=== PATIENT | male | born 1990 | race Caucasian/White ===

== ENCOUNTER 2021-11-01 19:41 | Emergency (ER) | payer OTHER, SELFPAY ==
--- NOTE | ~2021-11-01 | XR_ITS ---
EXAMINATION: XR chest 1V portable 11/01/2021 20:18 INDICATION: Shortness of breath with chest tightness PROCEDURE: 2 view chest COMPARISON: 04/26/2017 FINDINGS: The lungs are clear. The cardiomediastinal silhouette is within normal limits. There are no pleural effusions. There is no pneumothorax suspected. IMPRESSION: 1: NO ACUTE CARDIOPULMONARY DISEASE. Reviewed, dictated and finalized at location A.
[2021-11-01 19:48] VITALS: BP 159/77; PULSE 82; RESP 22; TEMP 36.8; O2SAT 98
[2021-11-01 20:00] VITALS: BP 148/80; PULSE 85; RESP 22; O2SAT 99
--- NOTE | 2021-11-01 20:05 | ECG_ITS ---
Measurements Intervals [place] Rate: 69 P: 16 [place]: 136 QRS: 19 QRSD: 95 T: 11 QT: 364 QTc: 390 Interpretive Statements SINUS RHYTHM BASELINE ARTIFACT- I, II, III, AVR, AVL, V1, V4-V6 NORMAL ECG Electronically Signed On 11-01-2021 21:32:40 CDT by Abelardo Caruso D.O.
[2021-11-01 20:23] LABS: Basophils Absolute Auto 0.09 K/mm3 (0.00-0.10); Basophils Percent Auto 0.9 % (0.0-1.0); Eosinophils Absolute Auto 0.38 K/mm3 (0.02-0.50); Hemoglobin 15.3 g/dL (14.0-18.0); Immature Granulocyte Absolute 0.05 K/mm3 (0.00-0.00); Immature Granulocyte Percent A 0.5 % (0.0-0.0); Lymphocytes Absolute Auto 2.19 K/mm3 (1.10-4.50); Mean Corpuscular HGB Conc 33.3 g/dL (32.0-36.0); Mean Corpuscular Hemoglobin 29.7 pg (27.0-31.0); Mean Corpuscular Volume 89.3 fL (78.0-102.0); Mean Platelet Volume 9.9 fl (8.7-11.0); Monocytes Absolute Auto 0.79 K/mm3 (0.10-0.90); Monocytes Percent Auto 8.3 % (2.0-11.0); Neutrophils Percent Auto 63.3 % (50.0-70.0); Platelet Count Result 343 K/mm3 (150-420); Red Blood Count 5.15 M/mm3 (4.70-6.10); Red Cell Distribution Width 13.6 % (11.6-14.4); White Blood Count 9.5 K/mm3 (4.8-10.8)
[2021-11-01 20:30] VITALS: BP 137/69; PULSE 80; RESP 17; O2SAT 97
[2021-11-01 20:45] LABS: Alanine Aminotransferase 36 U/L (16-63); Albumin Level 3.6 g/dL (3.4-5.0); Alkaline Phosphatase 55 U/L (46-116); Anion Gap 10 mmol/L (8-16); Aspartate Amino Transferase 27 U/L (15-37); Bilirubin,Total 0.3 mg/dL (0.00-1.00); Blood Urea Nitrogen 11 mg/dL (7-18); Calcium 8.5 mg/dL (8.5-10.1); Carbon Dioxide 19 mmol/L (21-32); Chloride 110 mmol/L (98-108); Estimated Glomerular Filt Rate > 60; Glucose 151 mg/dL (70-99); Lipase 129 U/L (73-393); NT Pro B Type Natriuretic Pept 40 pg/mL (0-125); Osmolality Calculated 290 mOsm/kg (285-295); Potassium 3.8 mmol/L (3.5-5.1); Sodium 139 mmol/L (136-145); Total Protein 7.1 g/dL (6.4-8.2); Troponin I 8.9 ng/L (0.00-60.4)
[2021-11-01] MEDS: NITROGLYCERIN SL 0.4 MG TABLET SUBLINGUAL (20:52)
[2021-11-01] MEDS: ASPIRIN 81 MG CHEWABLE TABLET 324 MG PO (20:53)
[2021-11-01 21:00] VITALS: BP 142/83; PULSE 95; RESP 16; O2SAT 96
[2021-11-01 21:07] LABS: Appearance Urine Clear (Clear); Bilirubin Urine Negative (Negative); Color Urine Light Yellow (Yellow); Glucose Urine UA Negative (Negative); Ketones Urine Negative (Negative); Leukocyte Esterase Ur Negative LEU/UL (Negative); Nitrate Urine Negative (Negative); Protein Urine Negative (Negative); Specific Grav Ur 1.015 (1.010-1.020); Urobilinogen Urine 0.2 mg/dL (0.2-1.0)
[2021-11-01 21:15] LABS: Add Urine Microscopic? YES; Bacteria Urine Trace /hpf; Blood Urine Trace-Intact (Negative); RBC Urine 0-2 /hpf (0-2); WBC Urine 0-3 /hpf (0-3)
[2021-11-01 21:31] VITALS: BP 147/74; PULSE 74; RESP 16; O2SAT 98
--- NOTE | 2021-11-01 21:45 | ED.CHESTPAIN ---
HPI - Chest Pain General Chief Complaint: Chest Pain Stated Complaint: high blood pressure Time Seen by Provider: 11/01/21 19:45 Source: patient and RN notes reviewed Mode of arrival: ambulatory Limitations: no limitations History of Present Illness MD complaint: chest pain Pertinent past history: other (HTN) Onset (ago): hour(s) (6) Timing of current episode: constant and still present Onset: during rest Pain location: left chest Pain radiation: none Severity: mild Pain scale (0-10): 4 Quality: burning Relieving factors: nothing Exacerbating factors: nothing Treatment prior to arrival: none Risk Factors Coronary artery disease risk factors: hypertension Related Data Allergies Allergy/AdvReac Type Severity Reaction Status Date / Time cefotetan [Cefotan] Allergy Intermediate Anaphylaxis Verified 11/04/21 15:05 bee venom protein (honey bee) Allergy Anaphylaxis Verified 11/04/21 15:05 [bees] Review of Systems Review of Systems: All systems reviewed & are unremarkable except as noted in HPI and below Constitutional: Constitutional: Reports no additional constitutional complaints Eyes: Eyes: Reports no additional eye complaints ENT: Reports system reviewed and no additional complaints, except as documented Cardiovascular: Cardiovascular: Reports no additional cardiovascular complaints and Reports chest pain Respiratory: Respiratory: Reports no additional respiratory complaints Gastrointestinal: Gastrointestinal: Reports no additional gastrointestinal complaints Musculoskeletal: Musculoskeletal: Reports no additional musculoskeletal complaints Integumentary/Breasts: Skin/Breast: Reports system reviewed and no additional complaints, except as docu Neurologic: Reports system reviewed and no additional complaints, except as documented Psychiatric: Psychiatric: Reports no additional psychiatric complaints Endocrine: Endocrine: Reports no additional endocrine complaints Hematologic/Lymphatic: Hematologic/Lymphatic: Reports no additional hematologic/lymphatic complaints Allergic/Immunologic: Allergic/Immunologic: Reports no additional allergic/immunologic complaints [facility] Past Medical History Medical History Asthma Chest pain COVID-19 Epididymitis Orchitis Viral gastroenteritis Surgical History Surgical History H/O hand surgery Social History Social History Smoking status: Former smoker Alcohol intake: current Substance use: never Substance use type: does not use Additional occupation/education comments: labor Exam Const: General: healthy appearing and no acute distress Nutritional Appearance: well nourished Orientation/consciousness: patient oriented x3 Limitations: no limitations HENMT: Head: normal to inspection Ears: external ears normal, TM's normal bilaterally and EAC's normal General nose exam: Normal external nose present and Normal nares present Face and sinus: normal facial exam and sinuses nontender Mouth: Yes Normal oral and palatal mucosa present and Yes moist mucous membranes Teeth and gingiva: dentition normal Throat: posterior oropharynx normal Eyes: Conjunctivae: conjunctivae normal Pupils: Equal, round and reactive pupils present EOM: EOMs intact bilaterally Neck: Neck: normal visual inspection, no lymphadenopathy and no meningeal signs Chest: Chest palpation & inspection: normal inspection of the chest Resp: Effort & Inspection: normal respiratory effort Auscultation: clear to auscultation bilaterally Cardio: Rate: regular rate Rhythm: regular rhythm GI: GI Palp: Yes Soft to palpation and No Tenderness to palpation present (GI) Auscultation: normal bowel sounds : General: Yes bladder normal to palpation and Yes no CVA tenderness Back/Spine/Pelvis: Back: no CVA tenderness Skin: Ge
[2021-11-01] MEDS: KETOROLAC (*BKC) 60 MG/2 ML VIAL IM (21:53)
[2021-11-01 22:44] LABS: Influenza A QL RT-PCR Negative (Negative); Influenza B QL RT-PCR Negative (Negative); SARS-CoV-2 RNA PCR Negative (Negative)
[2021-11-01 22:57] VITALS: BP 123/85; PULSE 73; RESP 18; TEMP 36.6; O2SAT 98
== END 2021-11-01 22:58 | disposition home or self-care (01) ==
PROVIDERS: Emergency Provider Emergency Medicine
DX: R07.89 Other chest pain (principal); Z20.822 Contact with and (suspected) exposure to COVID-19; Z87.891 Personal history of nicotine dependence
CPT/HCPCS: 36415; 71045; 80053; 81001; 83690; 83880; 84484; 85025; 87502; 93005; 96372; 99284; A9270; C9803; J1885; U0003; U0005

== ENCOUNTER 2023-07-22 16:37 | Emergency (ER) | payer OTHER, SELFPAY ==
--- NOTE | 2023-07-22 16:42 | ED.GENADULT ---
HPI - General Adult General Chief complaint: Upper Respiratory Infection Stated complaint: SORE THROAT/EARS Time Seen by Provider: 07/22/23 16:41 Source: patient Mode of arrival: ambulatory Limitations: no limitations History of Present Illness HPI narrative: 33-year-old male patient presents to the [facility] with complaints of sore throat, ear pain and cold symptoms for the past 5 days. Patient's states he has had runny nose, cough, chills. Patient states he thinks he has been running a fever but has not measured it. patient states he did have some nausea vomiting and diarrhea couple of days ago that has since resolved. Patient states he has been taking [id number] Mucinex and Tylenol . Denies getting a flu shot this year. Related Data Home Medications Medication Instructions Recorded Confirmed testosterone cypionate 100 mg/mL 50 mg IM WEEKLY 07/22/23 07/22/23 intramuscular oil venlafaxine 75 mg capsule,extended 75 mg PO DAILY 07/22/23 07/22/23 release 24 hr Allergies Allergy/AdvReac Type Severity Reaction Status Date / Time cefotetan [Cefotan] Allergy Intermediate Anaphylaxis Verified 07/22/23 16:48 bee venom protein (honey bee) Allergy Anaphylaxis Verified 07/22/23 16:48 [bees] Review of Systems Review of Systems: CONSTITUTIONAL: Denies fever, Positive chills, and body aches, sweats. EYES: Denies visual changes, redness, or discharge. ENT: positive rhinorrhea, congestion, sore throat, bilateral otalgia. CARDIOVASCULAR: Denies chest pain, palpitations, or edema. RESPIRATORY: positive cough , denies dyspnea. GASTROINTESTINAL: Denies abdominal pain, positive nausea, vomiting, and diarrhea. GENITOURINARY: Denies dysuria or hematuria. SKIN: Denies rash or itching. MUSCULOSKELETAL: Denies back pain, joint pain, or myalgia. NEUROLOGIC: positive headache, denies numbness, or weakness. PSYCHIATRIC: Denies anxiety or depression. [facility] Past Medical History Medical History (Updated 07/22/23 @ 17:06 by ROSALEE Rodriguez) Anxiety Asthma Chest pain COVID-19 Epididymitis Orchitis Viral gastroenteritis Surgical History Surgical History (Updated 07/22/23 @ 16:55 by ROSALEE Rodriguez) H/O hand surgery History of hernia surgery Social History Social History Smoking status: Former smoker Alcohol intake: current Substance use: never Substance use type: does not use Living arrangements: with family Occupation/Education: occupation Additional occupation/education comments: labor Comments At the time of my signature I agree with nursing past medical history, surgical, social, and family history. There is no relevant family history pertinent to the presenting complaint. Exam Narrative: GENERAL: ill-appearing, well-nourished, and in no acute distress. HEAD: Normocephalic, atraumatic. EYES: PERRLA and EOMI. ENT: Nares with erythema edema noted bilateral, clear rhinorrhea , no epistaxis. Mucous membranes moist. posterior pharynx with 2+ tonsillar enlargement, no exudates or lesions. Bilateral TMs do appear injected and slightly erythemic NECK: Supple. bilateral cervical lymphadenopathy CHEST: Clear to auscultation. No respiratory distress. HEART: Regular rate and rhythm. No murmur heard. Normal peripheral pulses. ABDOMEN: Soft, nontender, nondistended, normal active bowel sounds. EXTREMITIES: Normal range of motion. No edema. SKIN: Warm, dry, no rash. NEURO: No focal deficits. Alert and oriented x3. Course Course Level of Care: Express Care Visit Reevaluation(s) Reevaluation #1: Re-evaluated patient notified and the all of his swabs today were negative. Discussed with patient he most likely has a viral URI. Discussed with patient I will discharge him home with some medication to help with the symptoms but if he still having worsening symptoms or fever in the next 3 days he should see his primary
[2023-07-22 16:43] VITALS: BP 136/80; PULSE 91; RESP 16; TEMP 37.1; O2SAT 100
== END 2023-07-22 17:10 | disposition home or self-care (01) ==
PROVIDERS: Emergency Provider Nurse Practitioner Family
DX: J06.9 Acute upper respiratory infection, unspecified (principal); J02.9 Acute pharyngitis, unspecified; Z20.822 Contact with and (suspected) exposure to COVID-19; Z87.891 Personal history of nicotine dependence; J45.909 Unspecified asthma, uncomplicated; F41.9 Anxiety disorder, unspecified; Z86.16 Personal history of COVID-19
CPT/HCPCS: 87081; 87426; 87804; 87880; 99213; G0463

== ENCOUNTER 2023-07-24 02:43 | Emergency (ER) | payer OTHER, SELFPAY ==
[2023-07-24 02:45] VITALS: BP 168/100; PULSE 100; RESP 20; TEMP 36.6; O2SAT 100
--- NOTE | 2023-07-24 03:02 | ED.GENADULT ---
HPI - General Adult General Chief complaint: Dental/Oral Stated complaint: dental pain History of Present Illness HPI narrative: Salvatore presented to the ED with pain in his upper right premolars. It started yesterday morning and became worse throughout the day. The pain then started to go into his sinus and right ear. It is painful to swallow but he can do so. Ther is no fever, dyspnea or drooling. Related Data Home Medications Medication Instructions Recorded Confirmed testosterone cypionate 100 mg/mL 50 mg IM WEEKLY 07/22/23 07/24/23 intramuscular oil venlafaxine 75 mg capsule,extended 75 mg PO DAILY 07/22/23 07/24/23 release 24 hr Allergies Allergy/AdvReac Type Severity Reaction Status Date / Time cefotetan [Cefotan] Allergy Intermediate Anaphylaxis Verified 07/22/23 16:48 bee venom protein (honey bee) Allergy Anaphylaxis Verified 07/22/23 16:48 [bees] Review of Systems Review of Systems: All systems reviewed & are unremarkable except as noted in HPI and below [facility] Past Medical History Medical History (Updated 07/24/23 @ 03:05 by Eugene Duran DO) Anxiety Asthma Chest pain COVID-19 Epididymitis Orchitis Viral gastroenteritis Surgical History Surgical History (Updated 07/22/23 @ 16:55 by ROSALEE Rodriguez) H/O hand surgery History of hernia surgery Social History Social History Smoking status: Former smoker Alcohol intake: current Substance use: never Substance use type: does not use Living arrangements: with family Occupation/Education: occupation Additional occupation/education comments: labor Exam Const: General: cooperative, healthy appearing, comfortable, no acute distress, well developed, alert, awake and Physically active Orientation/consciousness: oriented to person, oriented to place and oriented to time HENMT: Head: normal to inspection, normocephalic and atraumatic Ears: hearing grossly normal bilaterally and external ears normal Face/Nose/Sinus: Normal external nose present Other: right upper premolar was TTP and the peridental tissue was erythematous and very TTP. Right TM WNL Eyes: General: appearance normal, both eyes and all related structures Periorbital: periorbital findings normal Sclera: sclerae normal Pupils: Equal, round and reactive pupils present Neck: Neck: normal visual inspection Chest: Chest palpation & inspection: normal inspection of the chest Resp: Effort & Inspection: normal respiratory effort, able to speak in complete sentences and no respiratory distress Auscultation: clear to auscultation bilaterally Cardio: Jugular venous distension: no JVD Rate: regular rate Rhythm: regular rhythm GI: Inspection: normal to inspection GI Palp: Yes Soft to palpation Auscultation: normal bowel sounds Skin: General skin exam: normal color and no rashes or lesions noted Neuro: General: oriented to person, oriented to place and oriented to time Cranial nerves: Yes Equal, round and reactive pupils present Extrem: General: normal to inspection Course Course Emergency Course: Given clindamycin and toradol Vital Signs Vital signs: Vital Signs Temperature 97.9 F 07/24/23 02:45 Pulse Rate 100 07/24/23 02:45 Respiratory Rate 20 07/24/23 02:45 Blood Pressure 168/100 H 07/24/23 02:45 Pulse Oximetry 100 07/24/23 02:45 Oxygen Delivery Room Air 07/24/23 02:45 Temperature 97.9 F 07/24/23 02:45 Pulse Rate 100 07/24/23 02:45 Respiratory Rate 20 07/24/23 02:45 Blood Pressure 168/100 H 07/24/23 02:45 Pulse Oximetry 100 07/24/23 02:45 Oxygen Delivery Room Air 07/24/23 02:45 Medical Decision Making Vital Signs Vital Signs: Vital Signs Temperature 97.9 F 07/24/23 02:45 Pulse Rate 100 07/24/23 02:45 Respiratory Rate 20 07/24/23 02:45 Blood Pressure 168/100 H 07/24/23 02:45 Pulse Oximetry 100 04/0
[2023-07-24] MEDS: CLINDAMYCIN HCL 150 MG CAP 300 MG PO (03:05)
[2023-07-24] MEDS: KETOROLAC 30 MG/ML VIAL (*BKC) IM (03:06)
[2023-07-24] MEDS: HYDROcodone/acetaminophen (*CRX) 5-325 MG TABLET 1 TAB PO (03:26)
[2023-07-24 03:27] VITALS: BP 160/109; PULSE 108; RESP 20; O2SAT 99
[2023-07-24 03:42] VITALS: BP 158/102; PULSE 98; RESP 18; TEMP 36.9; O2SAT 98
== END 2023-07-24 03:42 | disposition home or self-care (01) ==
PROVIDERS: Emergency Provider Family Medicine
DX: K04.7 Periapical abscess without sinus (principal); J45.909 Unspecified asthma, uncomplicated; Z87.891 Personal history of nicotine dependence
CPT/HCPCS: 96372; 99283; A9270; J1885

== ENCOUNTER 2023-10-13 18:35 | Emergency (ER) | payer OTHER, SELFPAY ==
--- NOTE | ~2023-10-13 | XR_ITS ---
EXAMINATION: XR chest 1V portable DATE: 10/13/2023 18:59 INDICATION: Left chest pain. Shortness of breath. Cough. TECHNIQUE: A single frontal view of the chest was obtained. COMPARISON: Chest single view 11/01/2021 FINDINGS: There is no pneumonia, pleural effusion, or pneumothorax. The heart size is normal. IMPRESSION: 1. No acute cardiopulmonary disease. Reviewed, dictated and finalized at location E.
--- NOTE | 2023-10-13 18:37 | ECG_ITS ---
Test Date: 2023-10-13 18:43:14 Measurements Intervals [place] Rate: 96 P: 37 [place]: 132 QRS: 27 QRSD: 100 T: 22 QT: 329 QTc: 417 Interpretive Statements SINUS RHYTHM NORMAL ELECTROCARDIOGRAM No previous ECG available for comparison Electronically Signed On 10-14-2023 08:54:32 CDT by Vic Recinos M.D.
[2023-10-13 18:49] VITALS: BP 152/77; PULSE 95; RESP 13; TEMP 36.9; O2SAT 96
[2023-10-13 18:50] VITALS: O2SAT 98
[2023-10-13 19:30] LABS: Basophils Absolute Auto 0.07 K/mm3 (0.00-0.10); Basophils Percent Auto 0.9 % (0.0-1.0); Eosinophils Absolute Auto 0.47 K/mm3 (0.02-0.50); Eosinophils Percent Auto 5.7 % (1.0-6.0); Hemoglobin 15.1 g/dL (14.0-18.0); Immature Granulocyte Absolute 0.07 K/mm3 (0.00-0.00); Immature Granulocyte Percent A 0.9 % (0.0-0.0); Lymphocytes Absolute Auto 2.24 K/mm3 (1.10-4.50); Lymphocytes Percent Auto 27.4 % (18.0-42.0); Mean Corpuscular HGB Conc 33.6 g/dL (32-36); Mean Corpuscular Hemoglobin 29.2 pg (27.0-31.0); Mean Corpuscular Volume 86.9 fL (78.0-102.0); Mean Platelet Volume 9.4 fl (8.7-11.0); Monocytes Percent Auto 8.6 % (2.0-11.0); Neutrophils Absolute Auto 4.63 K/mm3 (1.70-7.20); Neutrophils Percent Auto 56.5 % (50.0-70.0); Platelet Count Result 295 K/mm3 (150-420); Red Blood Count 5.18 M/mm3 (4.70-6.10); Red Cell Distribution Width 13.4 % (11.6-14.4); White Blood Count 8.2 K/mm3 (4.8-10.8)
[2023-10-13 19:42] LABS: D Dimer 0.38 mg/L (0.19-0.50)
[2023-10-13] MEDS: KETOROLAC 30 MG/ML VIAL (*BKC) IV PUSH (19:44)
[2023-10-13 19:47] LABS: Alanine Aminotransferase 33 U/L (16-63); Albumin Level 3.7 g/dL (3.4-5.0); Alkaline Phosphatase 61 U/L (46-116); Anion Gap 12 mmol/L (4-12); Aspartate Amino Transferase 22 U/L (15-37); Bilirubin,Total 0.2 mg/dL (0.00-1.00); Blood Urea Nitrogen 13 mg/dL (7-18); Calcium 8.9 mg/dL (8.5-10.1); Carbon Dioxide 22 mmol/L (21-32); Chloride 104 mmol/L (98-108); Estimated CRCL calculation 195 ml/min; Estimated Glomerular Filt Rate > 60; Glucose 145 mg/dL (70-99); Osmolality Calculated 289 mOsm/kg (285-295); Potassium 3.9 mmol/L (3.5-5.1); Sodium 138 mmol/L (136-145); Total Protein 7.4 g/dL (6.4-8.2); Troponin I 8.1 ng/L (0.00-60.4)
--- NOTE | 2023-10-13 20:13 | ED.CHESTPAIN ---
HPI - Chest Pain General Chief Complaint: Chest Pain Stated Complaint: SOB; Chest Pain Source: patient Mode of arrival: ambulatory Limitations: no limitations History of Present Illness HPI narrative: this is a 33-year-old male who presents with chest discomfort that is reproducible with palpation and with movement deep inspiration with no fever chills no nausea vomiting no radiation of pain. complaint: chest discomfort Onset (ago): day(s) Timing of current episode: episodic Onset: during exertion Pain location: left chest Pain radiation: none Severity: moderate Pain scale (0-10): 6 Related Data Home Medications Medication Instructions Recorded Confirmed testosterone cypionate 100 mg/mL 50 mg IM [id number] 07/22/23 07/24/23 intramuscular oil venlafaxine 75 mg capsule,extended 75 mg PO DAILY 07/22/23 10/13/23 release 24 hr Allergies Allergy/AdvReac Type Severity Reaction Status Date / Time cefotetan [Cefotan] Allergy Intermediate Anaphylaxis Verified 10/13/23 18:48 bee venom protein (honey bee) Allergy Anaphylaxis Verified 10/13/23 18:48 [bees] Review of Systems Review of Systems: All systems reviewed & are unremarkable except as noted in HPI and below PMFSH Past Medical History Medical History Anxiety Asthma Chest pain COVID-19 Epididymitis Orchitis Viral gastroenteritis Surgical History Surgical History H/O hand surgery History of hernia surgery Social History Social History Smoking status: Former smoker Alcohol intake: current Substance use: never Substance use type: does not use Living arrangements: with family Occupation/Education: occupation Additional occupation/education comments: labor Exam Const: General: cooperative, healthy appearing, comfortable, no acute distress, well developed and alert Neck: Neck: normal visual inspection, full ROM, no lymphadenopathy and no meningeal signs Chest: Chest palpation & inspection: normal inspection of the chest Other: chest pain reproducible with palpation and with movement Resp: Effort & Inspection: normal respiratory effort and able to speak in complete sentences Cardio: Jugular venous distension: no JVD Palpation: normal PMI Rate: regular rate Rhythm: regular rhythm Heart sounds: S1 normal heart sound present and S2 normal heart sound present GI: Inspection: normal to inspection Neuro: General: oriented to person, oriented to place, oriented to time and patient oriented x3 Extrem: General: normal to inspection, full ROM and capillary refill normal Psych: Appearance: grossly normal Mental Status: mental status grossly normal Course Course Emergency Course: EKG reviewed and normal sinus rhythm troponins negative patient Reef CV 60mg IM Toradol and pain level has improved slightly labs reviewed show no acute abnormalities. Vital Signs Vital signs: Vital Signs Temperature 36.9 C 10/13/23 18:49 Pulse Rate 95 10/13/23 18:49 Respiratory Rate 13 10/13/23 18:49 Blood Pressure 152/77 H 10/13/23 18:49 Pulse Oximetry 96 10/13/23 18:49 Oxygen Delivery Room Air 10/13/23 18:49 Temperature 36.9 C 10/13/23 18:49 Pulse Rate 95 10/13/23 18:49 Respiratory Rate 13 10/13/23 18:49 Blood Pressure 152/77 H 10/13/23 18:49 Pulse Oximetry 98 10/13/23 18:50 Oxygen Delivery Room Air 10/13/23 18:50 MDM - Chest Pain Lab Data 10/13/23 19:25 10/13/23 19:25 Labs: Lab Results 10/13/23 Range/Units 19:25 WBC 8.2 (4.8-10.8) K/mm3 RBC 5.18 (4.70-6.10) M/mm3 Hgb 15.1 (14.0-18.0) g/dL Hct 45.0 (40.0-54.0) % MCV 86.9 (78.0-102.0) fL MCH 29.2 (27.0-31.0) pg MCHC 33.6 (32-36) g/dL RDW 13.4 (11.6-14.4) % Plt Count 295 (150-420) K/mm3 MPV 9.4 (8.7-11.
== END 2023-10-13 20:28 | disposition home or self-care (01) ==
PROVIDERS: Emergency Provider Emergency Medicine; PCP Registered Nurse
DX: M94.0 Chondrocostal junction syndrome [Tietze] (principal); Z87.891 Personal history of nicotine dependence
CPT/HCPCS: 36415; 71045; 80053; 84484; 85025; 85380; 93005; 96374; 99284; J1885

== ENCOUNTER 2024-05-29 15:40 | Emergency (ER) | payer OTHER, SELFPAY ==
--- NOTE | ~2024-05-29 | XR_ITS ---
Portable chest x-ray Comparison: 10/13/2023 Clinical History: Chest pain Findings: Lungs are clear, without focal consolidation or pleural effusion. Cardiomediastinal silho uette is stable. Bones and soft tissues are unremarkable. Impression: Clear lungs. Reviewed, dictated and finalized at [facility]. [employer]W SUPERVISOR Impression: Clear lungs.
--- OUTSIDE RECORDS SUMMARY | 2024-05-29 15:43 | XMS_ITS ---
Author Organization Unknown Address [address] [place] [address] [phone] Phone Care Team Providers Care Call Person Name Role Phone KM Irwin Attending Unavailable JAYE BRUNER Primary Unavailable SCOTTY CANADA Secondary Unavailable Immunization Immunization Date Status Additional Notes Code Code System DTP 1992 Completed 01 CVX DTP 1992 Completed 01 CVX DTP 1992 Completed 01 CVX OPV 1992 Completed 02 CVX OPV 1992 Completed 02 CVX OPV 10/03/1993 Completed 02 CVX MMR 10/03/1993 Completed 03 CVX Hep B, adolescent or pediatric 1992 Completed 08 CVX Hep B, adolescent or pediatric 1992 Completed 08 CVX Hep B, adolescent or pediatric 10/03/1993 Completed 08 CVX Hib, unspecified formulation 1992 Completed 17 CVX Hib, unspecified formulation 1992 Completed 17 CVX Hib, unspecified formulation 1992 Completed 17 CVX DTP-Hib 10/03/1993 Completed 22 CVX Tdap 12/18/2006 Completed 115 CVX Results CBC W/ DIFF - Collect Date/T papa: 03/01/2023 10:07 [facility] ID: [id number] [place] [address], [id number] LOINC: 28094-7 Test Value Unit Reference Range Code Code System Flag WBC 8.0 10^3uL L=4.8 H=10.8 RBC 5.11 10^6uL L=4.60 H=6.20 HEMOGLOBIN 14.8 g/dL L=14.0 H=18.0 718-7 LOINC HEMATOCRIT 45.2 VOL% L=42.0 H=52.0 4544-3 LOINC MCV 88.5 fL L=80.0 H=94.0 MCH 29.0 pg L=27.0 H=32.0 MCHC 32.7 g/dL L=32.0 H=36.0 PLATELETS 352 10^3uL L=100 H=400 20771-5 LOINC RDW 13.6 % L=11.7 H=15.5 %GRAN 61.9 % L=40.0 H=70.0 27787-7 LOINC %LYMPH 24.3 % L=20.0 H=45.0 736-9 LOINC %MONO 7.1 % L=2.0 H=10.0 79757-1 LOINC %EOS 5.1 % L=0.0 H=6.0 713-8 LOINC %BASO 0.7 % L=0.0 H=3.0 706-2 LOINC #NEUT 5.0 10^3uL L=1.9 H=7.6 17534-2 LOINC #LYMPH 2.0 10^3uL L=0.9 H=4.9 48876-7 LOINC #MONO 0.6 10^3uL L=0.1 H=0.9 64383-0 LOINC #EOS 0.4 10^3uL L=0.0 H=0.6 712-0 LOINC #BASO 0.06 10^3uL L=0.00 H=0.10 40086-7 LOINC #IM GRANS 0.1 10^3uL L=0.0 H=7.0 89292-4 LOINC %IM GRANS 0.9 % L=0.0 H=5.0 41076-9 LOINC %NRB 0.0 L=0.0 H=0.2 53125-1 LOINC #NRB 0.000 L=0.000 H=0.012 65671-4 LOINC MANUAL DIFF NOT INDICATED RBC MORPH NOT INDICATED COMPREHENSIVE METABOLIC PANE L - Collect Date/Time: 03/01/2023 10:07 [facility] ID: [id number] [address] [place], [place], [id number] LOINC: 53018-0 Test Value Unit Reference Range Code Code System Flag FASTING NO BUN 17 mg/dL L=7 H=20 3094-0 LOINC CREATININE 0.80 mg/dL L=0.66 H=1.25 2160-0 LOINC GLUCOSE 133 mg/dL L=74 H=106 2345-7 LOINC H SODIUM 139 mmol/L L=132 H=144 2951-2 LOINC POTASSIUM 4.6 mmol/L L=3.5 H=5.1 2823-3 LOINC CHLORIDE 108 mmol/L L=98 H=107 2075-0 LOINC H CO2 23.0 mmol/L L=22.0 H=30.0 2028-9 LOINC ANION GAP 13 L=10 H=20 17276-9 LOINC OSMOLALITY 291 mOs/kG L=280 H=296 91168-2 LOINC BUN/CREAT 21.3 3097-3 LOINC CALCIUM 9.6 mg/dL L=8.3 H=10.5 00799-0 LOINC AST 28 U/L L=15 H=46 1920-8 LOINC ALT 23 U/L L=9 H=72 1742-6 LOINC ALKALINE PHOS 62 U/L L=38 H=126 6768-6 LOINC TOTAL BILI 0.2 mg/dL L=0.2 H=1.3 1975-2 LOINC ALBUMIN 4.4 G/dL L=3.5 H=5.0 1751-7 LOINC TOTAL PROTEIN 7.6 g/L L=6.3 H=8.2 2885-2 LOINC A/G RATIO 1.4 82114-3 LOINC AGE 32 71368-1 LOINC eGFR NON-AFR 121 ml/min eGFR AFR AMER 146 ml/min CT ABD/PEL W/ CONTRAST - Com pleted: 03/01/2023 15:38 LOINC: 90352-2 EXAM DESCRIPTION: CT ABD/PEL W/ CONTRAST REASON FOR STUDY: umbilical abdominal pain/ worsening Duration: 3-4 months TECHNIQUE: CT scan of the abdomen and pelvis performed with intravenous and with oral contrast using helical scanning technique with dynamic intravenous contrast injection. Reconstructed coronal and sagittal MPR images reviewed. All images stored on PACS. Automated exposure control was used as a dose optimization technique for this examination. CONTRAST TYPE/DOSE: 100 cc's of Isovue 370 injected via lac 20 ga COMPARISON: CT abdomen pelvis 09/05/2020 REFERENCE: Per ACR white paper recommendations, unless otherwise specified no follow-up imaging is recommended for incidental renal and adrenal lesions per consensus recommendations based on imaging criteria. Further lab evaluation could be pursued based on clinical findings. FINDINGS: LOWER CHEST: There are new right lower lobe tree-in-bud nodular opacities likely representing pneumonia. LIVER: Normal size. No identified cystic or solid masses. GALLBLADDER: No stones, wall thickening or pericholecystic fluid BILE DUCTS: No intrahepatic or extrahepatic ductal dilatation. SPLEEN: Mildly enlarged measuring 13.1 cm. No splenic lesion identified. PANCREAS: No identified cystic or solid masses. No significant calcifications. No adjacent inflammation or peripancreatic fluid collections. Pancreatic duct not dilated. ADRENALS: Normal. KIDNEYS/URINARY TRACT: No identified significant cystic or solid masses. No visualized stones. No hydronephrosis or hydroureter. Symmetric enhancement. Urinary bladder is unremarkable. GI: There is oral contrast within the small bowel. No dilated bowel loops. No obvious wall thickening. Normal appendix. No significant diverticular disease. PERITONEUM: No ascites or free air. There is a borderline enlarged 9 mm lymph node near the gastroesophageal junction on axial image 38. RETROPERITONEUM: No mass or adenopathy. REPRODUCTIVE: No significant abnormality. VASCULATURE: No abdominal aortic aneurysm. MUSCULOSKELETAL: No suspicious osseous lesion. OTHER: There is a fat containing umbilical hernia. IMPRESSION: ? ? New right lower lobe tree-in-bud nodular opacities most likely representing pneumonia. ? ? Borderline enlarged 9 mm lymph node near the gastroesophageal junction. THIS IS AN ELECTRONICALLY VERIFIED FINAL REPORT 03/01/2023 4:19 PM - Electronically signed by Jake Rosenthal M.D. AM: AM Report ID: [id number] Reading Location: [place] [address] Social History Type Status Start Date End Date Code Code Syst em Smoking History Never smoker (Never Smoked) 477167881 SNOMED CT Sex Male Medications Medication Start Date End Date Route Frequency Dose Code Code System Medication Instructions Home Meds Albuterol Sulfate HFA 0.09MG/1Actuation Inhalation Suspension 01/17/2022 Unknown INHALATION NEEDED EVERY 4 HOURS 2 unit(s) 3622803 RxNorm 2 EACH INHALATION NEEDED EVERY 4 HOURS Amitriptyline 25MG Oral Tablet 03/08/2023 Unknown ORAL NEEDED AT BEDTIME 25 MILLIGRA MS 585282 RxNorm TAKE 25 MILLIGRAMS ORAL NEEDED AT BEDTIME Testosterone Cypionate 100MG/1ML Intramuscular Oil 03/08/2023 Unknown INTRAMUSCUL AR EVERY 2 WEEKS 1 unit(s) 496427 RxNorm GIVE 1 EACH INTRAMUSCUL AR EVERY 2 WEEKS Venlafaxine HCl 75MG Oral Tablet 03/08/2023 Unknown ORAL ONCE A DAY 75 MILLIGRA MS 308979 RxNorm TAKE 75 MILLIGRAMS ORAL ONCE A DAY Vitamin D(Ergocalciferol) AvPak 1.25MG Oral Capsule, Liquid Filled 03/08/2023 Unknown ORAL ONCE A WEEK 1.25 MILLIGRA MS 6532854 RxNorm TAKE 1.25 MILLIGRAMS ORAL ONCE A WEEK HYDROcodone bitartrate-acetami nophen 7.5MG-325MG Oral Tablet 03/08/2023 Unknown BY MOUTH NEEDED EVERY 6 HOURS 1 TABLET 182728 RxNorm TAKE 1 TABLET BY MOUTH NEEDED EVERY 6 HOURS FOR PAIN Assessment You had the following problems:[facility] Hospital Discharge Instructions Should you have any questions prior to discharge, please contact a member of your healthcare team. If you have left the hospital and have any questions, please contact your primary care physician. Reason For Referral No Data Found Implants Implanted CATALINA Status Assigning Authority Procedure Date Lot Number Serial Number Manufacturing Date Expiration Date Distinct ID Code Brand Name Model Number Ventralex ST Hernia Patch Active Open Umbilical Hernia repair with Mesh 03/03 [id number] 07/19/[address] [id number] Problems Problem Start Date Resolved Date Status Code Code System SYNCOPE active 415352262 SNOMED-CT Allergies and Adverse Reactions Allergy Substance Reaction Severity Start Date Concern Status Co de Code System CEFUROXIME Moderate Active CEFIXIME Moderate Active CLARITHROMYCIN Moderate Active CEFPROZIL Moderate Active CEFTIN Active 396305 RxNorm SULFAMETHOXAZOLE/TRIME THOPRIM Active 12682 RxNorm Plan of Treatment MRI Lumbar WO Contrast (69628) 11/17/19 21 MRI Brain WO Contrast (09371) 2 CT Abdomen/Pelvis W Contrast (64280) Open Umbilical Hernia Repair 03/08/2023 CT Upper Ext WO Contrast (97508) 2023 MRI UE Joint WO Contrast (15197) 2023 MRI Cervical WO Contrast (26541) 2023 Encounters Encounter Diagnosis Start Date Code Code Sys tem Abdominal pain 03/01/2023 [id number] SNOMED-CT Personal Care Team Section Performer Name Performer Role Active Date Inactive Carter Herman PCP - Primary care physician 2021-11-07 Imaging Narrative Notes
--- OUTSIDE RECORDS SUMMARY | 2024-05-29 15:44 | XMS_ITS ---
Author Organization Unknown Address [address] [place] [address] [phone] Phone Care Team Providers Care Glassware Maker Demonstrator Name Role Phone DUY Fajardo Attending Unavailable JAYE BRUNER Primary Unavailable Immunization Immunization Date Status Additional Notes [...] CVX Tdap 12/18/2006 Completed 115 CVX Results MRI UE JOINT WO CONTRAST - C ompleted: 04/01/2024 14:31 LOINC: EXAM DESCRIPTION: MRI UE JOINT WO CONTRAST REASON FOR STUDY: Left shoulder MRI wo contrast. 3-4 months ago, the pt fell over a baby gate, striking his left shoulder on the floor; since the incident, he's had constant, intense left shoulder pain radiating into his upper back, neck, and head with no improvement over time. Trauma, as described. Duration: 3-4 months since injury. TECHNIQUE: Multiplanar, multisequence MRI of the left shoulder was performed without contrast. COMPARISON: None FINDINGS: Rotator Cuff: There is mild supraspinatus tendinosis without discrete tearing. There is mild infraspinatus tendinosis without discrete tearing. The teres minor is intact intra-articular biceps is within normal limits. The subscapularis is intact. No muscle atrophy or edema. Biceps Tendon: The long head of the biceps tendon is located within the bicipital groove, without tear. Labrum: No tear is identified. Acromion and AC Joint: The coracoacromial and coracoclavicular ligaments are intact. No significant AC joint arthropathy. Type 2 acromion. Glenohumeral Articulation: No subluxation. No chondromalacia. Bones: No fracture. Joint and bursae: No joint effusion or bursal fluid. No loose bodies. Soft Tissues: The scapular notch, and quadrilateral space are unremarkable. There is no axillary lymphadenopathy. IMPRESSION: ? ? Supraspinatus and infraspinatus mild tendinosis without discrete tearing. THIS IS AN ELECTRONICALLY VERIFIED FINAL REPORT 04/01/2024 4:57 PM - Electronically signed by Cameron Olivas M.D. JA: GURVINDER Report ID: [id number] Reading Location: [place] [address] Social History Type Status Start Date End Date Code Code Syst em Smoking History Never smoker (Never Smoked) 367924824 SNOMED CT Sex Male Medications Medication Start Date End Date Route Frequency Dose Code Code System Medication Instructions Home Meds Albuterol Sulfate HFA 0.09MG/1Actuation Inhalation Suspension 01/17/2022 Unknown INHALATION NEEDED EVERY 4 HOURS 2 unit(s) 9203150 RxNorm 2 EACH INHALATION NEEDED EVERY 4 HOURS Amitriptyline 25MG Oral Tablet 03/08/2023 Unknown ORAL NEEDED AT BEDTIME 25 MILLIGRA MS 956235 RxNorm TAKE 25 MILLIGRAMS ORAL NEEDED AT BEDTIME Testosterone Cypionate 100MG/1ML Intramuscular Oil 03/08/2023 Unknown INTRAMUSCUL AR EVERY 2 WEEKS 1 unit(s) 468515 RxNorm GIVE 1 EACH INTRAMUSCUL AR EVERY 2 WEEKS Venlafaxine HCl 75MG Oral Tablet 03/08/2023 Unknown ORAL ONCE A DAY 75 MILLIGRA MS 314799 RxNorm TAKE 75 MILLIGRAMS ORAL ONCE A DAY Vitamin D(Ergocalciferol) AvPak 1.25MG Oral Capsule, Liquid Filled 03/08/2023 Unknown ORAL ONCE A WEEK 1.25 MILLIGRA MS 6736201 RxNorm TAKE 1.25 MILLIGRAMS ORAL ONCE A WEEK HYDROcodone bitartrate-acetami nophen 7.5MG-325MG Oral Tablet 03/08/2023 Unknown BY MOUTH NEEDED EVERY 6 HOURS 1 TABLET 581430 RxNorm TAKE 1 TABLET BY MOUTH NEEDED [...] Open Umbilical Hernia repair with Mesh 03/03 [id number] 07/19/[address] [id number] Problems Problem Start Date Resolved Date Status Code Code System SYNCOPE active 852008063 DVS SciencesOMED-CT Allergies and Adverse Reactions Allergy Substance Reaction Severity Start Date Concern Status Co de Code System CEFUROXIME Moderate Active CEFIXIME Moderate Active CLARITHROMYCIN Moderate Active CEFPROZIL Moderate Active CEFTIN Active 258937 RxNorm SULFAMETHOXAZOLE/TRIME THOPRIM Active 57254 RxNorm Plan of Treatment MRI Lumbar WO Contrast (60720) 11/17/19 MRI Brain WO Contrast (10724) 2 CT Abdomen/Pelvis W Contrast (07897) Open Umbilical Hernia Repair 03/08/2023 CT Upper Ext WO Contrast (46594) 2023 MRI UE Joint WO Contrast (48806) 2023 MRI Cervical WO Contrast (18468) 2023 Encounters Encounter Diagnosis Start Date Code Code Sys tem Other shoulder lesions, left shoulder 04/01/2024 SNOMED-CT Personal Care Team Section Performer Name Performer Role Active Date Inactive Carter Herman PCP - Primary care physician 2021-11-07 Imaging Narrative Notes
--- OUTSIDE RECORDS SUMMARY | 2024-05-29 15:44 | XMS_ITS ---
Author Organization Unknown Address [address] [place] [address] [phone] Phone Care Team Providers Care Bead Wire Insulator Name Role Phone KAREN JULIEN Attending Unavailable JAYE BRUNER Primary Unavailable Immunization [...] 22 CVX Tdap 12/18/2006 Completed 115 CVX Social History Type Status Start Date End Date Code Code Syst em Smoking History Never smoker (Never Smoked) 336334128 SNOMED CT Sex Male Medications Medication Start Date End Date Route Frequency Dose Code Code System Medication Instructions Home Meds Albuterol Sulfate HFA 0.09MG/1Actuation Inhalation Suspension 01/17/2022 Unknown INHALATION NEEDED EVERY 4 HOURS 2 unit(s) 7066500 RxNorm 2 EACH INHALATION NEEDED EVERY 4 HOURS Amitriptyline 25MG Oral Tablet 03/08/2023 Unknown ORAL NEEDED AT BEDTIME 25 MILLIGRA MS 720870 RxNorm TAKE 25 MILLIGRAMS ORAL NEEDED AT BEDTIME Testosterone Cypionate 100MG/1ML Intramuscular Oil 03/08/2023 Unknown INTRAMUSCUL AR EVERY 2 WEEKS 1 unit(s) 341989 RxNorm GIVE 1 EACH INTRAMUSCUL AR EVERY 2 WEEKS Venlafaxine HCl 75MG Oral Tablet 03/08/2023 Unknown ORAL ONCE A DAY 75 MILLIGRA MS 081987 RxNorm TAKE 75 MILLIGRAMS ORAL ONCE A DAY Vitamin D(Ergocalciferol) AvPak 1.25MG Oral Capsule, Liquid Filled 03/08/2023 Unknown ORAL ONCE A WEEK 1.25 MILLIGRA MS 3007438 RxNorm TAKE 1.25 MILLIGRAMS ORAL ONCE A WEEK HYDROcodone bitartrate-acetami nophen 7.5MG-325MG Oral Tablet 03/08/2023 Unknown BY MOUTH NEEDED EVERY 6 HOURS 1 TABLET 892327 RxNorm TAKE 1 TABLET BY MOUTH NEEDED [...] Open Umbilical Hernia repair with Mesh 03/03 [id number] 07/19/[address] [id number] Problems Problem Start Date Resolved Date Status Code Code System SYNCOPE active 292688117 SNOMED-CT Allergies and Adverse Reactions Allergy Substance Reaction Severity Start Date Concern Status Co de Code System CEFUROXIME Moderate Active CEFIXIME Moderate Active CLARITHROMYCIN Moderate Active CEFPROZIL Moderate Active CEFTIN Active 834222 RxNorm SULFAMETHOXAZOLE/TRIME THOPRIM Active 31952 RxNorm Plan of Treatment MRI Lumbar WO Contrast (08050) 11/17/19 MRI Brain WO Contrast (12701) CT Abdomen/Pelvis W Contrast (41600) Open Umbilical Hernia Repair 03/08/2023 CT Upper Ext WO Contrast (19988) 2023 MRI UE Joint WO Contrast (31239) 2023 MRI Cervical WO Contrast (22579) 2023 Encounters Encounter Diagnosis Start Date Code Code Sys tem Other specific arthropathies , not elsewhere classified, left shoulder 04/25/2024 SNOMED-CT Personal Care Team Section Performer Name Performer Role Active Date Inactive Carter Herman PCP - Primary care physician 2021-11-07
--- OUTSIDE RECORDS SUMMARY | 2024-05-29 15:44 | XMS_ITS ---
Author Organization Unknown Address [address] [place] [address] [phone] Phone Care Team Providers Care Repair Specialist Name Role Phone KAREN JULIEN Attending Unavailable [...] CVX Tdap 12/18/2006 Completed 115 CVX Results SHOULDER MIN 2V LEFT - Compl eted: 02/29/2024 09:19 LOINC: EXAM DESCRIPTION: ? ? SHOULDER MIN 2V LEFT REASON FOR STUDY: Pain in the left side of the neck that radiates down the left arm and into the hand. Tingling/numbness. Fell over a baby gate one month ago. Headaches. Duration: one month FINDINGS: Four views submitted with comparison 11/06/2012. No acute fractures are identified. Old healed left clavicular midshaft fracture is noted. The glenohumeral and acromioclavicular joints are normal. IMPRESSION: ? ? Old healed left clavicular midshaft fracture. THIS IS AN ELECTRONICALLY VERIFIED FINAL REPORT 03/02/2024 4:30 PM - Electronically signed by Vic Ortiz M.D. MF: [id number] Report ID: [id number] Reading Location: [place] [address] Social History Type Status Start Date End Date Code Code Syst em Smoking History Never smoker (Never Smoked) 489470468 SNOMED CT Sex Male Medications Medication Start Date End Date Route Frequency Dose Code Code System Medication Instructions Home Meds Albuterol Sulfate HFA 0.09MG/1Actuation Inhalation Suspension 01/17/2022 Unknown INHALATION NEEDED EVERY 4 HOURS 2 unit(s) 6156194 RxNorm 2 EACH INHALATION NEEDED EVERY 4 HOURS Amitriptyline 25MG Oral Tablet 03/08/2023 Unknown ORAL NEEDED AT BEDTIME 25 MILLIGRA MS 325493 RxNorm TAKE 25 MILLIGRAMS ORAL NEEDED AT BEDTIME Testosterone Cypionate 100MG/1ML Intramuscular Oil 03/08/2023 Unknown INTRAMUSCUL AR EVERY 2 WEEKS 1 unit(s) 458288 RxNorm GIVE 1 EACH INTRAMUSCUL AR EVERY 2 WEEKS Venlafaxine HCl 75MG Oral Tablet 03/08/2023 Unknown ORAL ONCE A DAY 75 MILLIGRA MS 899231 RxNorm TAKE 75 MILLIGRAMS ORAL ONCE A DAY Vitamin D(Ergocalciferol) AvPak 1.25MG Oral Capsule, Liquid Filled 03/08/2023 Unknown ORAL ONCE A WEEK 1.25 MILLIGRA MS 7542843 RxNorm TAKE 1.25 MILLIGRAMS ORAL ONCE A WEEK HYDROcodone bitartrate-acetami nophen 7.5MG-325MG Oral Tablet 03/08/2023 Unknown BY MOUTH NEEDED EVERY 6 HOURS 1 TABLET 140992 RxNorm TAKE 1 TABLET BY MOUTH NEEDED [...] Open Umbilical Hernia repair with Mesh 03/03 [id number] 07/19/[address] [id number] Problems Problem Start Date Resolved Date Status Code Code System SYNCOPE active 642270169 SNOMED-CT Allergies and Adverse Reactions Allergy Substance Reaction Severity Start Date Concern Status Co de Code System CEFUROXIME Moderate Active CEFIXIME Moderate Active CLARITHROMYCIN Moderate Active CEFPROZIL Moderate Active CEFTIN Active 510573 RxNorm SULFAMETHOXAZOLE/TRIME THOPRIM Active 63689 RxNorm Plan of Treatment MRI Lumbar WO Contrast (43341) 11/17/19 MRI Brain WO Contrast (19200) CT Abdomen/Pelvis W Contrast (39323) Open Umbilical Hernia Repair 03/08/2023 CT Upper Ext WO Contrast (72600) 2023 MRI UE Joint WO Contrast (01988) 2023 MRI Cervical WO Contrast (20684) 2023 Encounters Encounter Diagnosis Start Date Code Code Sys tem Cervicalgia 02/29/2024 SNOMED-CT Personal Care Team Section Performer Name Performer Role Active Date Inactive Carter Herman PCP - Primary care physician 2021-11-07 Imaging Narrative Notes
--- OUTSIDE RECORDS SUMMARY | 2024-05-29 15:44 | XMS_ITS ---
Author Organization Unknown Address [address] [place] [address] [phone] Phone Care Team Providers Care Rn L And D Name Role Phone JAYE BRUNER Attending Unavailable Immunization Immunization Date Status Additional Notes [...] CVX Tdap 12/18/2006 Completed 115 CVX Results 25 HYDROXY VITAMIN D - Colle ct Date/Time: 01/22/2024 15:01 [facility] ID: [id number] [address] [place] [address], [id number] LOINC: Test Value Unit Reference Range Code Code System Flag VITAMIN D 47.6 ng/ml L=30.0 H=100 33485-7 LOINC HEMOGLOBIN A1C WITH eAG - Co llect Date/Time: 01/22/2024 15:01 [facility] ID: [id number] [place], [place], [phone] LOINC: 4548-4 Test Value Unit Reference Range Code Code System Flag HGBA1C 6.9 % 4548-4 LOINC eAG 151.3 mg/dL 4548-4 LOINC COMPREHENSIVE METABOLIC PANE L - Collect Date/Time: 01/22/2024 15:01 [facility] ID: [id number] [place], [id number] LOINC: 92885-2 Test Value Unit Reference Range Code Code System Flag FASTING NO BUN 18 mg/dL L=7 H=20 3094-0 LOINC CREATININE 0.90 mg/dL L=0.66 H=1.25 2160-0 LOINC GLUCOSE 212 mg/dL L=74 H=106 2345-7 LOINC H SODIUM 140 mmol/L L=132 H=144 2951-2 LOINC POTASSIUM 4.8 mmol/L L=3.5 H=5.1 2823-3 LOINC CHLORIDE 104 mmol/L L=98 H=107 2075-0 LOINC CO2 24.0 mmol/L L=22.0 H=30.0 8-9 LOINC ANION GAP 17 L=10 H=20 50080-1 LOINC OSMOLALITY 298 mOs/kG L=280 H=296 58545-7 LOINC H BUN/CREAT 20.0 3097-3 LOINC CALCIUM 10.1 mg/dL L=8.3 H=10.5 93751-9 LOINC AST 31 U/L L=15 H=46 1920-8 LOINC ALT 33 U/L L=9 H=72 1742-6 LOINC ALKALINE PHOS 69 U/L L=38 H=126 6768-6 LOINC TOTAL BILI 0.5 mg/dL L=0.2 H=1.3 1975-2 LOINC ALBUMIN 4.4 G/dL L=3.5 H=5.0 1751-7 LOINC TOTAL PROTEIN 7.5 g/L L=6.3 H=8.2 2885-2 LOINC A/G RATIO 1.4 12968-2 LOINC AGE 33 30736-9 LOINC eGFR NON-AFR 105 ml/min eGFR AFR AMER 127 ml/min LIPID PANEL - Collect Date/T papa: 01/22/2024 15:01 [facility] ID: [id number] [place], [place], [id number] LOINC: 44253-8 Test Value Unit Reference Range Code Code System Flag FASTING NO CHOLESTEROL 169 mg/dL L=0 H=200 3-3 LOINC TRIGLYCERIDE 159 mg/dL L=0 H=150 2571-8 LOINC H HDL 48 mg/dL L=40 H=60 5-9 LOINC LDL 89 mg/dL 2088- LOINC Social History Type Status Start Date End Date Code Code Syst em Smoking History Never smoker (Never Smoked) 012518292 SNOMED CT Sex Male Medications Medication Start Date End Date Route Frequency Dose Code Code System Medication Instructions Home Meds Albuterol Sulfate HFA 0.09MG/1Actuation Inhalation Suspension 01/17/2022 Unknown INHALATION NEEDED EVERY 4 HOURS 2 unit(s) 3294823 RxNorm 2 EACH INHALATION NEEDED EVERY 4 HOURS Amitriptyline 25MG Oral Tablet 03/08/2023 Unknown ORAL NEEDED AT BEDTIME 25 MILLIGRA MS 549652 RxNorm TAKE 25 MILLIGRAMS ORAL NEEDED AT BEDTIME Testosterone Cypionate 100MG/1ML Intramuscular Oil 03/08/2023 Unknown INTRAMUSCUL AR EVERY 2 WEEKS 1 unit(s) 497289 RxNorm GIVE 1 EACH INTRAMUSCUL AR EVERY 2 WEEKS Venlafaxine HCl 75MG Oral Tablet 03/08/2023 Unknown ORAL ONCE A DAY 75 MILLIGRA MS 167375 RxNorm TAKE 75 MILLIGRAMS ORAL ONCE A DAY Vitamin D(Ergocalciferol) AvPak 1.25MG Oral Capsule, Liquid Filled 03/08/2023 Unknown ORAL ONCE A WEEK 1.25 MILLIGRA MS 2140026 RxNorm TAKE 1.25 MILLIGRAMS ORAL ONCE A WEEK HYDROcodone bitartrate-acetami nophen 7.5MG-325MG Oral Tablet 03/08/2023 Unknown BY MOUTH NEEDED EVERY 6 HOURS 1 TABLET 493020 RxNorm TAKE 1 TABLET BY MOUTH NEEDED [...] Open Umbilical Hernia repair with Mesh 03/03 [id number] 07/19/[address] [id number] Problems Problem Start Date Resolved Date Status Code Code System SYNCOPE active 214658501 SNOMED-CT Allergies and Adverse Reactions Allergy Substance Reaction Severity Start Date Concern Status Co de Code System CEFUROXIME Moderate Active CEFIXIME Moderate Active CLARITHROMYCIN Moderate Active CEFPROZIL Moderate Active CEFTIN Active 181334 RxNorm SULFAMETHOXAZOLE/TRIME THOPRIM Active 36138 RxNorm Plan of Treatment MRI Lumbar WO Contrast (20564) 11/17/19 MRI Brain WO Contrast (19631) 2 CT Abdomen/Pelvis W Contrast (91633) Open Umbilical Hernia Repair 03/08/2023 CT Upper Ext WO Contrast (04259) 2023 MRI UE Joint WO Contrast (43330) 2023 MRI Cervical WO Contrast (86580) 2023 Personal Care Team Section Performer Name Performer Role Active Date Inactive Carter Herman PCP - Primary care physician 2021-11-07
--- OUTSIDE RECORDS SUMMARY | 2024-05-29 15:45 | XMS_ITS ---
Author Organization Unknown Address [id number] [place] [address] [phone] Phone Care Team Providers Care Gum Dipper Name Role Phone SUSI BURRELL Attending Unavailable JAYE BRUNER Primary Unavailable Immunization [...] CVX Tdap 12/18/2006 Completed 115 CVX Results 4 PLEX RESPIRATORY COVID FLU RSV PCR - Collect Date/Time: 04/11/2024 13:38 [facility] [id number] [place] [address], [id number] LOINC: 19090-6 Test Value Unit Reference Range Code Code System Flag SARS CoV2 PCR POSITIVE A FLU A PCR NEGATIVE FLU B PCR NEGATIVE RSV PCR NEGATIVE SEND TO [facility]? YES Social History Type Status Start Date End Date Code Code Syst em Smoking History Never smoker (Never Smoked) 142596053 SNOMED CT Sex Male Medications Medication Start Date End Date Route Frequency Dose Code Code System Medication Instructions Home Meds Albuterol Sulfate HFA 0.09MG/1Actuation Inhalation Suspension 01/17/2022 Unknown INHALATION NEEDED EVERY 4 HOURS 2 unit(s) 2965252 RxNorm 2 EACH INHALATION NEEDED EVERY 4 HOURS Amitriptyline 25MG Oral Tablet 03/08/2023 Unknown ORAL NEEDED AT BEDTIME 25 MILLIGRA MS 097940 RxNorm TAKE 25 MILLIGRAMS ORAL NEEDED AT BEDTIME Testosterone Cypionate 100MG/1ML Intramuscular Oil 03/08/2023 Unknown INTRAMUSCUL AR EVERY 2 WEEKS 1 unit(s) 663600 RxNorm GIVE 1 EACH INTRAMUSCUL AR EVERY 2 WEEKS Venlafaxine HCl 75MG Oral Tablet 03/08/2023 Unknown ORAL ONCE A DAY 75 MILLIGRA MS 871807 RxNorm TAKE 75 MILLIGRAMS ORAL ONCE A DAY Vitamin D(Ergocalciferol) AvPak 1.25MG Oral Capsule, Liquid Filled 03/08/2023 Unknown ORAL ONCE A WEEK 1.25 MILLIGRA MS [id number] RxNorm TAKE 1.25 MILLIGRAMS ORAL ONCE A WEEK HYDROcodone bitartrate-acetami nophen 7.5MG-325MG Oral Tablet 03/08/2023 Unknown BY MOUTH NEEDED EVERY 6 HOURS 1 TABLET 302677 RxNorm TAKE 1 TABLET BY MOUTH NEEDED [...] Open Umbilical Hernia repair with Mesh 03/03 [id number] 07/19/[address] [id number] Problems Problem Start Date Resolved Date Status Code Code System SYNCOPE active 248907565 SNOMED-CT Allergies and Adverse Reactions Allergy Substance Reaction Severity Start Date Concern Status Co de Code System CEFUROXIME Moderate Active CEFIXIME Moderate Active CLARITHROMYCIN Moderate Active CEFPROZIL Moderate Active CEFTIN Active 204876 RxNorm SULFAMETHOXAZOLE/TRIME THOPRIM Active 91342 RxNorm Plan of Treatment MRI Lumbar WO Contrast (82447) 11/17/19 MRI Brain WO Contrast (59350) CT Abdomen/Pelvis W Contrast (52659) Open Umbilical Hernia Repair 03/08/2023 CT Upper Ext WO Contrast (23455) 2023 MRI UE Joint WO Contrast (28964) 2023 MRI Cervical WO Contrast (39930) 2023 Encounters Encounter Diagnosis Start Date Code Code Sys tem COVID-19 04/11/2024 SNOMED-CT Personal Care Team Section Performer Name Performer Role Active Date Inactive Carter Herman PCP - Primary care physician 2021-11-07
--- OUTSIDE RECORDS SUMMARY | 2024-05-29 15:45 | XMS_ITS ---
Author Organization Unknown Address [address] [place] [address] [phone] Phone Care Team Providers Care Evening Sitter Name Role Phone KAREN JULIEN Attending Unavailable [...] em Smoking History Never smoker (Never Smoked) [id number] SNOMED CT Sex Male Medications Medication Start Date End Date Route Frequency Dose Code Code System Medication Instructions Home Meds Albuterol Sulfate HFA 0.09MG/1Actuation Inhalation Suspension 01/17/2022 Unknown INHALATION NEEDED EVERY 4 HOURS 2 unit(s) 0643026 RxNorm 2 EACH INHALATION NEEDED EVERY 4 HOURS Amitriptyline 25MG Oral Tablet 03/08/2023 Unknown ORAL NEEDED AT BEDTIME 25 MILLIGRA MS 547020 RxNorm TAKE 25 MILLIGRAMS ORAL NEEDED AT BEDTIME Testosterone Cypionate 100MG/1ML Intramuscular Oil 03/08/2023 Unknown INTRAMUSCUL AR EVERY 2 WEEKS 1 unit(s) 021718 RxNorm GIVE 1 EACH INTRAMUSCUL AR EVERY 2 WEEKS Venlafaxine HCl 75MG Oral Tablet 03/08/2023 Unknown ORAL ONCE A DAY 75 MILLIGRA MS 781064 RxNorm TAKE 75 MILLIGRAMS ORAL ONCE A DAY Vitamin D(Ergocalciferol) AvPak 1.25MG Oral Capsule, Liquid Filled 03/08/2023 Unknown ORAL ONCE A WEEK 1.25 MILLIGRA MS 8879876 RxNorm TAKE 1.25 MILLIGRAMS ORAL ONCE A WEEK HYDROcodone bitartrate-acetami nophen 7.5MG-325MG Oral Tablet 03/08/2023 Unknown BY MOUTH NEEDED EVERY 6 HOURS 1 TABLET 313471 RxNorm TAKE 1 TABLET BY MOUTH NEEDED [...] Open Umbilical Hernia repair with Mesh 03/03 [id number] 07/19/[address] [id number] Problems Problem Start Date Resolved Date Status Code Code System SYNCOPE active 450374802 SNOMED-CT Allergies and Adverse Reactions Allergy Substance Reaction Severity Start Date Concern Status Co de Code System CEFUROXIME Moderate Active CEFIXIME Moderate Active CLARITHROMYCIN Moderate Active CEFPROZIL Moderate Active CEFTIN Active 114264 RxNorm SULFAMETHOXAZOLE/TRIME THOPRIM Active 77525 RxNorm Plan of Treatment MRI Lumbar WO Contrast (60254) 11/17/19 MRI Brain WO Contrast (63278) CT Abdomen/Pelvis W Contrast (28696) Open Umbilical Hernia Repair 03/08/2023 CT Upper Ext WO Contrast (25097) 2023 MRI UE Joint WO Contrast (77442) 2023 MRI Cervical WO Contrast (57275) 2023 Encounters Encounter Diagnosis Start Date Code Code Sys tem Cervicalgia 05/09/2024 SNOMED-CT Personal Care Team Section Performer Name Performer Role Active Date Inactive Da edward Cadet PCP - Primary care physician 2021-11-07
--- OUTSIDE RECORDS SUMMARY | 2024-05-29 15:46 | XMS_ITS | Clinical Summary ---
Author Organization [facility] Address [address] [place] [address] Care Team Providers Care Steel Grinder Name Role Phone Nicolás Cadet DO Primary Care Provider [phone] Allergies Active Allergy Reactions Criticality Noted Date Comments Cefuroxime Unknown 09/29/2022 Medications venlafaxine XR (EFFEXOR-XR) 75 MG 24 hr capsule Take 1 capsule (75 mg total) by mouth daily. 08/08/2022 Active traZODone (DESYREL) 100 MG tablet Take 1 tablet (100 mg total) by mouth nightly at bedtime. at bedtime. 06/26/2022 Active Family History Relation Status Comments Father Alive Mother Alive Social History Tobacco Use Types Packs/Day Years Used Date Smoking Tobacco: Never Smokeless Tobacco: Current Chew Tobacco Cessation:Ready to Q uit: Not Asked; Counseling Given: Not Answered Alcohol Use Standard Drinks/Week Comments Yes 0 (1 standard drink = 0.6 oz pur e alcohol) occasional Sex and Gender Information Value Date Recorded Sex Assigned at Not on file Legal Sex Male 2:46 PM CDT Gender Identity Not on file Sexual Orientation Straight 10/02/2022 9: 43 AM CDT Last Filed Vital Signs Vital Sign Reading Time Taken Comments Blood Pressure 158/95 01/21/2024 8:51 PM CDT Pulse 20 01/21/2024 8:51 PM CDT Temperature 36.8 C (98.2 F) 01/21/2024 8:51 PM CDT Respiratory Rate 20 01/21/2024 8:51 PM CDT Oxygen Saturation 94% 01/21/2024 8:51 PM CDT Inhaled Oxygen Concentration - - Weight 150.3 kg (331 lb 6.4 oz) 01/21/2024 8:51 PM CDT Height 185.4 cm (6' 1 ) 01/21/2024 8:51 PM CDT Body Mass Index 43.72 01/21/2024 8:51 PM CDT Plan of Treatment Health Maintenance Due Date Last Done Comments Annual Physical 06/26/1995 Hepatitis C 2010 DTaP, Tdap and Td Vaccines (5 - Td or Tdap) 12/18/2016 12/18/2006, 10/03/1993, 1992, Additional history exists COVID-19 Vaccine ( season) 2023 Influenza Adult (#1) 2024 Hepatitis B Vaccines Completed 10/03/1993, 1992, 1992 HPV Vaccines Aged Out No longer eligi ble based on patient's age to complete this topic Meningococcal B Vaccine Aged Out No l onger eligible based on patient's age to complete this topic Meningococcal Vaccine Aged Out No bj dianna eligible based on patient's age to complete this topic Pneumococcal Vaccine: Pediatrics (0 to 5 Years) and At-Risk Patients (6 to 64 Years) Aged Out No longer eligible based on patient's age to complete this topic RSV Immunizations Under 20 Months Aged Out No longer eligible based on patient's age to complete this topic Insurance AETNA Care Teams Steel Grinder Relationship Specialty Start Date End Date Nicolás [place] [address] [place] [address] PCP - General FAMILY PRACTICE 01/21/24
--- OUTSIDE RECORDS SUMMARY | 2024-05-29 15:46 | XMS_ITS ---
Author Organization Unknown Address [address] [place] [address] [phone] Phone Care Team Providers Care Supervisor Mirror Fabrication Name Role Phone CASTRO JACOBSON Attending Unavailable JAYE BRUNER Primary Unavailable Immunization [...] CVX Tdap 12/18/2006 Completed 115 CVX Results CERVICAL SPINE MIN 4 VIEWS W /OBL - Completed: 01/29/2024 12:00 LOINC: EXAM DESCRIPTION: CERVICAL SPINE MIN 4 VIEWS W/OBL REASON FOR STUDY: LEFT SHOULDER PAIN TECHNIQUE: 5 radiographic view(s) of the cervical spine. COMPARISON: None FINDINGS: ALIGNMENT: Anatomic. VERTEBRAE: Vertebral bodies of normal height. DISCS: Disc height well-maintained. SOFT TISSUES: Within normal limits. IMPRESSION: Negative cervical spine THIS IS AN ELECTRONICALLY VERIFIED FINAL REPORT 01/29/2024 12:42 PM - Electronically signed by Burton Anderson M.D. KATERINA: KATERINA Report ID: [id number] Reading Location: [place] [address] Social History Type Status Start Date End Date Code Code Syst em Smoking History Never smoker (Never Smoked) 563875003 SNOMED CT Sex Male Medications Medication Start Date End Date Route Frequency Dose Code Code System Medication Instructions Home Meds Albuterol Sulfate HFA 0.09MG/1Actuation Inhalation Suspension 01/17/2022 Unknown INHALATION NEEDED EVERY 4 HOURS 2 unit(s) 3237744 RxNorm 2 EACH INHALATION NEEDED EVERY 4 HOURS Amitriptyline 25MG Oral Tablet 03/08/2023 Unknown ORAL NEEDED AT BEDTIME 25 MILLIGRA MS 078415 RxNorm TAKE 25 MILLIGRAMS ORAL NEEDED AT BEDTIME Testosterone Cypionate 100MG/1ML Intramuscular Oil 03/08/2023 Unknown INTRAMUSCUL AR EVERY 2 WEEKS 1 unit(s) 129675 RxNorm GIVE 1 EACH INTRAMUSCUL AR EVERY 2 WEEKS Venlafaxine HCl 75MG Oral Tablet 03/08/2023 Unknown ORAL ONCE A DAY 75 MILLIGRA MS 236501 RxNorm TAKE 75 MILLIGRAMS ORAL ONCE A DAY Vitamin D(Ergocalciferol) AvPak 1.25MG Oral Capsule, Liquid Filled 03/08/2023 Unknown ORAL ONCE A WEEK 1.25 MILLIGRA MS 8415388 RxNorm TAKE 1.25 MILLIGRAMS ORAL ONCE A WEEK HYDROcodone bitartrate-acetami nophen 7.5MG-325MG Oral Tablet 03/08/2023 Unknown BY MOUTH NEEDED EVERY 6 HOURS 1 TABLET 109281 RxNorm TAKE 1 TABLET BY MOUTH NEEDED [...] Open Umbilical Hernia repair with Mesh 03/03 [id number] 07/19/[address] [id number] Problems Problem Start Date Resolved Date Status Code Code System SYNCOPE active 322006670 SNOMED-CT Allergies and Adverse Reactions Allergy Substance Reaction Severity Start Date Concern Status Co de Code System CEFUROXIME Moderate Active CEFIXIME Moderate Active CLARITHROMYCIN Moderate Active CEFPROZIL Moderate Active CEFTIN Active 928562 RxNorm SULFAMETHOXAZOLE/TRIME THOPRIM Active 64826 RxNorm Plan of Treatment MRI Lumbar WO Contrast (09727) 11/17/19 MRI Brain WO Contrast (19769) CT Abdomen/Pelvis W Contrast (65937) Open Umbilical Hernia Repair 03/08/2023 CT Upper Ext WO Contrast (61412) 2023 MRI UE Joint WO Contrast (49190) 2023 MRI Cervical WO Contrast (88851) 2023 Encounters Encounter Diagnosis Start Date Code Code Sys tem 01/29/2024 [id number] SNOMED-CT Personal Care Team Section Performer Name Performer Role Active Date Inactive Carter Herman PCP - Primary care physician 2021-11-07 Imaging Narrative Notes
--- OUTSIDE RECORDS SUMMARY | 2024-05-29 15:46 | XMS_ITS ---
Author Organization Unknown Address [address] [place] [address] [phone] Phone Care Team Providers Care Foam Rubber Mixer Name Role Phone KAREN JULIEN Attending Unavailable [...] em Smoking History Never smoker (Never Smoked) 518533825 SNOMED CT Sex Male Medications Medication Start Date End Date Route Frequency Dose Code Code System Medication Instructions Home Meds Albuterol Sulfate HFA 0.09MG/1Actuation Inhalation Suspension 01/17/2022 Unknown INHALATION NEEDED EVERY 4 HOURS 2 unit(s) 8544725 RxNorm 2 EACH INHALATION NEEDED EVERY 4 HOURS Amitriptyline 25MG Oral Tablet 03/08/2023 Unknown ORAL NEEDED AT BEDTIME 25 MILLIGRA MS 037935 RxNorm TAKE 25 MILLIGRAMS ORAL NEEDED AT BEDTIME Testosterone Cypionate 100MG/1ML Intramuscular Oil 03/08/2023 Unknown INTRAMUSCUL AR EVERY 2 WEEKS 1 unit(s) 117617 RxNorm GIVE 1 EACH INTRAMUSCUL AR EVERY 2 WEEKS Venlafaxine HCl 75MG Oral Tablet 03/08/2023 Unknown ORAL ONCE A DAY 75 MILLIGRA MS 163553 RxNorm TAKE 75 MILLIGRAMS ORAL ONCE A DAY Vitamin D(Ergocalciferol) AvPak 1.25MG Oral Capsule, Liquid Filled 03/08/2023 Unknown ORAL ONCE A WEEK 1.25 MILLIGRA MS 4422967 RxNorm TAKE 1.25 MILLIGRAMS ORAL ONCE A WEEK HYDROcodone bitartrate-acetami nophen 7.5MG-325MG Oral Tablet 03/08/2023 Unknown BY MOUTH NEEDED EVERY 6 HOURS 1 TABLET 777147 RxNorm TAKE 1 TABLET BY MOUTH NEEDED [...] Open Umbilical Hernia repair with Mesh 03/03 [id number] 07/19/[address] [id number] Problems Problem Start Date Resolved Date Status Code Code System SYNCOPE active 981694656 SNOMED-CT Allergies and Adverse Reactions Allergy Substance Reaction Severity Start Date Concern Status Co de Code System CEFUROXIME Moderate Active CEFIXIME Moderate Active CLARITHROMYCIN Moderate Active CEFPROZIL Moderate Active CEFTIN Active 037895 RxNorm SULFAMETHOXAZOLE/TRIME THOPRIM Active 15282 RxNorm Plan of Treatment MRI Lumbar WO Contrast (40959) 11/17/19 MRI Brain WO Contrast (05520) 2 CT Abdomen/Pelvis W Contrast (35508) Open Umbilical Hernia Repair 03/08/2023 CT Upper Ext WO Contrast (55229) 2023 MRI UE Joint WO Contrast (17166) 2023 MRI Cervical WO Contrast (28888) 2023 Encounters Encounter Diagnosis Start Date Code Code Sys tem Cervicalgia 03/14/2024 SNOMED-CT Personal Care Team Section Performer Name Performer Role Active Date Inactive Carter Herman PCP - Primary care physician 2021-11-07
--- OUTSIDE RECORDS SUMMARY | 2024-05-29 15:46 | XMS_ITS ---
Author Organization Unknown Address [address] [place] [address] [phone] Phone Care Team Providers Care Technical Sales Representatives Name Role Phone CHARIS COURTNEY Attending Unavailable JAYE BRUNER Primary Unavailable Immunization [...] CVX Tdap 12/18/2006 Completed [address] UE WO CONTRAST - Complete d: 01/22/2024 17:02 LOINC: EXAM DESCRIPTION: CT UE WO CONTRAST REASON FOR STUDY: Fall last night, heard a pop. History of a fractured clavicle. Pain in the shoulder. Duration: one day TECHNIQUE: Multidetector CT scan of the left upper extremity was performed. Coronal and sagittal images were reconstructed. Dose modulation adjustment of the mA and/or kV has been performed per [facility] protocols according to patient size and indication. COMPARISON: No prior. FINDINGS: The left upper extremity was included in the field of view extending from above the left shoulder through the mid shaft of the left humerus. The scapula and entire clavicle are also included in the field of view. There is no acute fracture or dislocation. The glenohumeral joint is maintained. The AC joint is maintained. Only trivial osteoarthritis of the AC joint. Adjacent ribs demonstrate an older ununited single part fracture of the anterior left 1st rib. This is not an acute fracture. There is no acute left rib fracture of the visualized chest. Visualized lung demonstrates no pneumothorax. Soft tissues demonstrate no focal fluid collection. IMPRESSION: ? ? No acute fracture of the left upper extremity. ? ? Old ununited single part fracture anterior left 1st rib. This is not an acute fracture. ? ? Only trivial osteoarthritis AC joint. THIS IS AN ELECTRONICALLY VERIFIED FINAL REPORT 01/22/2024 4:59 PM - Electronically signed by Vic White M.D. MJ: TJ Report ID: [id number] Reading Location: [id number] Social History Type Status Start Date End Date Code Code Syst em Smoking History Never smoker (Never Smoked) 728911127 SNOMED CT Sex Male Medications Medication Start Date End Date Route Frequency Dose Code Code System Medication Instructions Home Meds Albuterol Sulfate HFA 0.09MG/1Actuation Inhalation Suspension 01/17/2022 Unknown INHALATION NEEDED EVERY 4 HOURS 2 unit(s) 6866137 RxNorm 2 EACH INHALATION NEEDED EVERY 4 HOURS Amitriptyline 25MG Oral Tablet 03/08/2023 Unknown ORAL NEEDED AT BEDTIME 25 MILLIGRA MS 881351 RxNorm TAKE 25 MILLIGRAMS ORAL NEEDED AT BEDTIME Testosterone Cypionate 100MG/1ML Intramuscular Oil 03/08/2023 Unknown INTRAMUSCUL AR EVERY 2 WEEKS 1 unit(s) 484707 RxNorm GIVE 1 EACH INTRAMUSCUL AR EVERY 2 WEEKS Venlafaxine HCl 75MG Oral Tablet 03/08/2023 Unknown ORAL ONCE A DAY 75 MILLIGRA MS 219939 RxNorm TAKE 75 MILLIGRAMS ORAL ONCE A DAY Vitamin D(Ergocalciferol) AvPak 1.25MG Oral Capsule, Liquid Filled 03/08/2023 Unknown ORAL ONCE A WEEK 1.25 MILLIGRA MS 6312008 RxNorm TAKE 1.25 MILLIGRAMS ORAL ONCE A WEEK HYDROcodone bitartrate-acetami nophen 7.5MG-325MG Oral Tablet 03/08/2023 Unknown BY MOUTH NEEDED EVERY 6 HOURS 1 TABLET 483386 RxNorm TAKE 1 TABLET BY MOUTH NEEDED [...] Open Umbilical Hernia repair with Mesh 03/03 [id number] 07/19/[address] [id number] Problems Problem Start Date Resolved Date Status Code Code System SYNCOPE active 994169122 SNOMED-CT Allergies and Adverse Reactions Allergy Substance Reaction Severity Start Date Concern Status Co de Code System CEFUROXIME Moderate Active CEFIXIME Moderate Active CLARITHROMYCIN Moderate Active CEFPROZIL Moderate Active CEFTIN Active 295570 RxNorm SULFAMETHOXAZOLE/TRIME THOPRIM Active 39164 RxNorm Plan of Treatment MRI Lumbar WO Contrast (00161) 11/17/19 MRI Brain WO Contrast (73283) 2 CT Abdomen/Pelvis W Contrast (18480) Open Umbilical Hernia Repair 03/08/2023 CT Upper Ext WO Contrast (83394) 2023 MRI UE Joint WO Contrast (15991) 2023 MRI Cervical WO Contrast (36610) 2023 Encounters Encounter Diagnosis Start Date Code Code Sys tem Primary osteoarthritis, left shoulder 01/22/2024 SNOMED-CT Personal Care Team Section Performer Name Performer Role Active Date Inactive Carter Herman PCP - Primary care physician 2021-11-07 Imaging Narrative Notes
--- OUTSIDE RECORDS SUMMARY | 2024-05-29 15:47 | XMS_ITS ---
Author Organization Unknown Address [address] [place] [address] [phone] Phone Care Team Providers Care Coil Former Name Role Phone MITCH Frost Attending Unavailable YUDY MORGAN CRNA Unavailable JAYE BRUNER Primary Unavailable Immunization Immunization [...] em Smoking History Never smoker (Never Smoked) 577818175 SNOMED CT Sex Male Vital Signs Vital Sign Value Unit Surry Value Surry Unit Date/Time Recent/Initial? Code Code System Body Mass Index 43.80 kg/m2 03/08/2023 11:07 Most Recent 62786 -5 LOINC Body Mass Index 43.80 kg/m2 03/02/2023 12:55 Initial 89802 -5 LOINC Systolic Blood Pressure 131 mm[Hg] 03/08/2023 11:07 Initial 8480- 6 LOINC Diastolic Blood Pressure 68 mm[Hg] 03/08/2023 11:07 Initial 8462- 4 LOINC Body Surface Area 2.78 m2 03/08/2023 11:07 Most Recent 3140- 1 LOINC Body Surface Area 2.78 m2 03/02/2023 12:55 Initial 3140- 1 LOINC Height 185.420 0 cm 73.00 in 03/08/2023 11:07 Most Recent 8302- 2 LOINC Height 185.420 0 cm 73.00 in 03/02/2023 12:55 Initial 8302- 2 LOINC O2 Saturation 98 % 2022 11:07 Initial 17132 -5 LOINC Pulse 60.0 /min 03/08/2023 11:07 Initial 8867- 4 LOINC Respiration 20 /min 03/08/20 11:07 Initial 9279- 1 LOINC Temperature 36.7 Lia 98.0 F 03/08/20 11:07 Initial 8310- 5 LOINC Weight 150.59 kg 332.00 lbs 03/08/2023 11:07 Most Recent 53476 -7 LOINC Weight 150.59 kg 332.00 lbs 03/02/2023 12:55 Initial 77464 -7 [facility] Medications Medication Start Date End Date Route Frequency Dose Code Code System Medication Instructions Home Meds Albuterol Sulfate HFA 0.09MG/1Actuation Inhalation Suspension 01/17/2022 Unknown INHALATION NEEDED EVERY 4 HOURS 2 unit(s) 5297702 RxNorm 2 EACH INHALATION NEEDED EVERY 4 HOURS Amitriptyline 25MG Oral Tablet 03/08/2023 Unknown ORAL NEEDED AT BEDTIME 25 MILLIGRA MS 761064 RxNorm TAKE 25 MILLIGRAMS ORAL NEEDED AT BEDTIME Testosterone Cypionate 100MG/1ML Intramuscular Oil 03/08/2023 Unknown INTRAMUSCUL AR EVERY 2 WEEKS 1 unit(s) 189950 RxNorm GIVE 1 EACH INTRAMUSCUL AR EVERY 2 WEEKS Venlafaxine HCl 75MG Oral Tablet 03/08/2023 Unknown ORAL ONCE A DAY 75 MILLIGRA MS 784926 RxNorm TAKE 75 MILLIGRAMS ORAL ONCE A DAY Vitamin D(Ergocalciferol) AvPak 1.25MG Oral Capsule, Liquid Filled 03/08/2023 Unknown ORAL ONCE A WEEK 1.25 MILLIGRA MS 0816300 RxNorm TAKE 1.25 MILLIGRAMS ORAL ONCE A WEEK HYDROcodone bitartrate-acetami nophen 7.5MG-325MG Oral Tablet 03/08/2023 Unknown BY MOUTH NEEDED EVERY 6 HOURS 1 TABLET 639703 RxNorm TAKE 1 TABLET BY MOUTH NEEDED EVERY 6 HOURS FOR PAIN Assessment You had the following problems:SYNCOPE Hospital Discharge Instructions Should you have any questions prior to discharge, please contact a member of your healthcare team. If you have left the hospital and have any questions, please contact your primary care physician. Reason For Referral No Data Found Procedures Procedure Name Date Status Code Code Syste m Hand surgery completed [id number] SNOMEDCT Anesthesia for intraperitone al procedures in upper abdomen including lapar 03/08/2023 completed 71253 CPT Repair of anterior abdominal hernia(s) (ie, epigastric, incisional, ventra 03/08/2023 completed 59955 CPT Implants Implanted [employer] Status Assigning Authority Procedure Date Lot Number Serial Number Manufacturing Date Expiration Date Distinct ID Code Brand Name Model Number Ventralex ST Hernia Patch Active Open Umbilical Hernia repair with Mesh 03/03 [id number] 07/19/[address] [id number] Problems Problem Start Date Resolved Date Status Code Code System SYNCOPE active 777344582 SNOMED-CT Allergies and Adverse Reactions Allergy Substance Reaction Severity Start Date Concern Status Co de Code System CEFUROXIME Moderate Active CEFIXIME Moderate Active CLARITHROMYCIN Moderate Active CEFPROZIL Moderate Active CEFTIN Active 954487 RxNorm SULFAMETHOXAZOLE/TRIME THOPRIM Active 23096 RxNorm Plan of Treatment MRI Lumbar WO Contrast (08014) 11/17/19 MRI Brain WO Contrast (22612) CT Abdomen/Pelvis W Contrast (29432) Open Umbilical Hernia Repair 03/08/2023 CT Upper Ext WO Contrast (08059) 2023 MRI UE Joint WO Contrast (87542) 2023 MRI Cervical WO Contrast (02865) 2023 Encounters Encounter Diagnosis Start Date Code Code Sys tem Umbilical hernia with obstruction, without gangrene SNOMED-CT Personal Care Team Section Performer Name Performer Role Active Date Inactive Carter Herman PCP - Primary care physician 2021-11-07
--- OUTSIDE RECORDS SUMMARY | 2024-05-29 15:47 | XMS_ITS ---
Author Organization Unknown Address [address] [place] [address] [phone] Phone Care Team Providers Care Driver Supervisor Name Role Phone KAREN JULIEN Attending Unavailable [...] Tdap 12/18/2006 Completed 115 CVX Results MRI CERVICAL WO CONTRAST - C ompleted: 03/13/2024 12:25 LOINC: EXAM DESCRIPTION: MRI CERVICAL WO CONTRAST REASON FOR STUDY: 3 months ago, the pt fell over a baby gate, striking his head/neck on some cabinetry and his left shoulder on the floor; since the incident, he's had constant, intense upper back and neck pain with radiation into the head and cervicogenic HAs. Trauma, as described. Duration: 3 months since injury. TECHNIQUE: Sagittal and Axial imaging includes T1, T2, STIR and gradient echo sequences. COMPARISON: Cervical plain film comparison 01/29/2024. FINDINGS: ALIGNMENT: Mild straightening of lordosis. Alignment otherwise is normal. VERTEBRAE: Vertebral body height well-maintained. Normal appearing marrow. DISCS: Disc levels are relatively maintained. See below. HARDWARE: None in the spine. CORD: Normal in size and signal intensity. INDIVIDUAL LEVELS: C1-C2: No significant spinal stenosis. C2-C3: No significant spinal stenosis or neural foraminal stenosis. C3-C4: Minimal right-sided uncovertebral spurring. No significant central canal stenosis or foraminal stenosis. C4-C5: No significant spinal stenosis or neural foraminal stenosis. C5-C6: No significant spinal stenosis or neural foraminal stenosis. C6-C7: No significant spinal stenosis or neural foraminal stenosis. C7-T1: No significant spinal stenosis or neural foraminal stenosis. BASE OF BRAIN: No significant finding. UPPER THORACIC: Incompletely imaged. No significant spinal stenosis or foraminal stenosis. OTHER: No other significant finding. IMPRESSION: Essentially unremarkable exam. Minimal uncovertebral spurring on the right at C3-4. No significant central canal stenosis or foraminal stenosis at any level. THIS IS AN ELECTRONICALLY VERIFIED FINAL REPORT 03/13/2024 2:21 PM - Electronically signed by Tonya Mitchell M.D. LC: JONY Report ID: [id number] Reading Location: [id number] Social History Type Status Start Date End Date Code Code Syst em Smoking History Never smoker (Never Smoked) 033732556 SNOMED CT Sex Male Medications Medication Start Date End Date Route Frequency Dose Code Code System Medication Instructions Home Meds Albuterol Sulfate HFA 0.09MG/1Actuation Inhalation Suspension 01/17/2022 Unknown INHALATION NEEDED EVERY 4 HOURS 2 unit(s) 7981039 RxNorm 2 EACH INHALATION NEEDED EVERY 4 HOURS Amitriptyline 25MG Oral Tablet 03/08/2023 Unknown ORAL NEEDED AT BEDTIME 25 MILLIGRA MS 465950 RxNorm TAKE 25 MILLIGRAMS ORAL NEEDED AT BEDTIME Testosterone Cypionate 100MG/1ML Intramuscular Oil 03/08/2023 Unknown INTRAMUSCUL AR EVERY 2 WEEKS 1 unit(s) 503044 RxNorm GIVE 1 EACH INTRAMUSCUL AR EVERY 2 WEEKS Venlafaxine HCl 75MG Oral Tablet 03/08/2023 Unknown ORAL ONCE A DAY 75 MILLIGRA MS 409116 RxNorm TAKE 75 MILLIGRAMS ORAL ONCE A DAY Vitamin D(Ergocalciferol) AvPak 1.25MG Oral Capsule, Liquid Filled 03/08/2023 Unknown ORAL ONCE A WEEK 1.25 MILLIGRA MS [id number] RxNorm TAKE 1.25 MILLIGRAMS ORAL ONCE A WEEK HYDROcodone bitartrate-acetami nophen 7.5MG-325MG Oral Tablet 03/08/2023 Unknown BY MOUTH NEEDED EVERY 6 HOURS 1 TABLET 215542 RxNorm TAKE 1 TABLET BY MOUTH NEEDED [...] Open Umbilical Hernia repair with Mesh 03/03 [id number] 07/19/[address] [id number] Problems Problem Start Date Resolved Date Status Code Code System SYNCOPE active 539154919 Single Cell TechnologyCT Allergies and Adverse Reactions Allergy Substance Reaction Severity Start Date Concern Status Co de Code System CEFUROXIME Moderate Active CEFIXIME Moderate Active CLARITHROMYCIN Moderate Active CEFPROZIL Moderate Active CEFTIN Active 394608 RxNorm SULFAMETHOXAZOLE/TRIME THOPRIM Active 81978 RxNorm Plan of Treatment MRI Lumbar WO Contrast (49427) 11/17/19 21 MRI Brain WO Contrast (08160) 2 CT Abdomen/Pelvis W Contrast (65978) Open Umbilical Hernia Repair 03/08/2023 CT Upper Ext WO Contrast (18282) 2023 MRI UE Joint WO Contrast (03701) 2023 MRI Cervical WO Contrast (83864) 2023 Encounters Encounter Diagnosis Start Date Code Code Sys tem Cervicalgia 03/13/2024 Animoca-CT Personal Care Team Section Performer Name Performer Role Active Date Inactive Da te Nicolás Lausen PCP - Primary care physician 2021-11-07 Imaging Narrative Notes
--- OUTSIDE RECORDS SUMMARY | 2024-05-29 15:48 | XMS_ITS ---
Author Organization Unknown Address [address] [place] [address] [phone] Phone Care Team Providers Care Machine Welt Butter Name Role Phone SCOTTY CANADA Attending Unavailable JAYE BRUNER Primary Unavailable Immunization [...] CVX Tdap 12/18/2006 Completed 115 CVX Results RESPIRATORY 4 PLEX COVID FLU RSV PCR - Collect Date/Time: 03/28/2023 12:34 [facility] ID: [id number] [address] [place] [address], [id number] LOINC: 77159-1 Test Value Unit Reference Range Code Code System Flag SARS CoV2 PCR NEGATIVE FLU A PCR NEGATIVE FLU B PCR NEGATIVE RSV PCR NEGATIVE SEND TO [facility]? YES A Social History Type Status Start Date End Date Code Code Syst em Smoking History Never smoker (Never Smoked) 444898904 SNOMED CT Sex Male Medications Medication Start Date End Date Route Frequency Dose Code Code System Medication Instructions Home Meds Albuterol Sulfate HFA 0.09MG/1Actuation Inhalation Suspension 01/17/2022 Unknown INHALATION NEEDED EVERY 4 HOURS 2 unit(s) 5900519 RxNorm 2 EACH INHALATION NEEDED EVERY 4 HOURS Amitriptyline 25MG Oral Tablet 03/08/2023 Unknown ORAL NEEDED AT BEDTIME 25 MILLIGRA MS 457579 RxNorm TAKE 25 MILLIGRAMS ORAL NEEDED AT BEDTIME Testosterone Cypionate 100MG/1ML Intramuscular Oil 03/08/2023 Unknown INTRAMUSCUL AR EVERY 2 WEEKS 1 unit(s) 683522 RxNorm GIVE 1 EACH INTRAMUSCUL AR EVERY 2 WEEKS Venlafaxine HCl 75MG Oral Tablet 03/08/2023 Unknown ORAL ONCE A DAY 75 MILLIGRA MS 590221 RxNorm TAKE 75 MILLIGRAMS ORAL ONCE A DAY Vitamin D(Ergocalciferol) AvPak 1.25MG Oral Capsule, Liquid Filled 03/08/2023 Unknown ORAL ONCE A WEEK 1.25 MILLIGRA MS 8941311 RxNorm TAKE 1.25 MILLIGRAMS ORAL ONCE A WEEK HYDROcodone bitartrate-acetami nophen 7.5MG-325MG Oral Tablet 03/08/2023 Unknown BY MOUTH NEEDED EVERY 6 HOURS 1 TABLET 548228 RxNorm TAKE 1 TABLET BY MOUTH NEEDED [...] Open Umbilical Hernia repair with Mesh 03/03 [id number] 07/19/[address] [id number] Problems Problem Start Date Resolved Date Status Code Code System SYNCOPE active 973734621 SNOMED-CT Allergies and Adverse Reactions Allergy Substance Reaction Severity Start Date Concern Status Co de Code System CEFUROXIME Moderate Active CEFIXIME Moderate Active CLARITHROMYCIN Moderate Active CEFPROZIL Moderate Active CEFTIN Active 380119 RxNorm SULFAMETHOXAZOLE/TRIME THOPRIM Active 23279 RxNorm Plan of Treatment MRI Lumbar WO Contrast (24870) 11/17/19 MRI Brain WO Contrast (83178) CT Abdomen/Pelvis W Contrast (87847) Open Umbilical Hernia Repair 03/08/2023 CT Upper Ext WO Contrast (97834) 2023 MRI UE Joint WO Contrast (30243) 2023 MRI Cervical WO Contrast (81738) 2023 Personal Care Team Section Performer Name Performer Role Active Date Inactive Da edward Cadet PCP - Primary care physician 2021-11-07
--- OUTSIDE RECORDS SUMMARY | 2024-05-29 15:48 | XMS_ITS ---
Author Organization Unknown Address [address] [place] [address] [phone] Phone Care Team Providers Care Junior Oracle Dba Name Role Phone CASTRO JACOBSON Attending Unavailable [...] em Smoking History Never smoker (Never Smoked) 833606557 SNOMED CT Sex Male Medications Medication Start Date End Date Route Frequency Dose Code Code System Medication Instructions Home Meds Albuterol Sulfate HFA 0.09MG/1Actuation Inhalation Suspension 01/17/2022 Unknown INHALATION NEEDED EVERY 4 HOURS 2 unit(s) 7923090 RxNorm 2 EACH INHALATION NEEDED EVERY 4 HOURS Amitriptyline 25MG Oral Tablet 03/08/2023 Unknown ORAL NEEDED AT BEDTIME 25 MILLIGRA MS 056584 RxNorm TAKE 25 MILLIGRAMS ORAL NEEDED AT BEDTIME Testosterone Cypionate 100MG/1ML Intramuscular Oil 03/08/2023 Unknown INTRAMUSCUL AR EVERY 2 WEEKS 1 unit(s) 214416 RxNorm GIVE 1 EACH INTRAMUSCUL AR EVERY 2 WEEKS Venlafaxine HCl 75MG Oral Tablet 03/08/2023 Unknown ORAL ONCE A DAY 75 MILLIGRA MS 883537 RxNorm TAKE 75 MILLIGRAMS ORAL ONCE A DAY Vitamin D(Ergocalciferol) AvPak 1.25MG Oral Capsule, Liquid Filled 03/08/2023 Unknown ORAL ONCE A WEEK 1.25 MILLIGRA MS 4022370 RxNorm TAKE 1.25 MILLIGRAMS ORAL ONCE A WEEK HYDROcodone bitartrate-acetami nophen 7.5MG-325MG Oral Tablet 03/08/2023 Unknown BY MOUTH NEEDED EVERY 6 HOURS 1 TABLET 582578 RxNorm TAKE 1 TABLET BY MOUTH NEEDED [...] Open Umbilical Hernia repair with Mesh 03/03 [id number] 07/19/[address] [id number] Problems Problem Start Date Resolved Date Status Code Code System SYNCOPE active 183709052 SNOMED-CT Allergies and Adverse Reactions Allergy Substance Reaction Severity Start Date Concern Status Co de Code System CEFUROXIME Moderate Active CEFIXIME Moderate Active CLARITHROMYCIN Moderate Active CEFPROZIL Moderate Active CEFTIN Active 820706 RxNorm SULFAMETHOXAZOLE/TRIME THOPRIM Active 80839 RxNorm Plan of Treatment MRI Lumbar WO Contrast (65065) 11/17/19 MRI Brain WO Contrast (06728) CT Abdomen/Pelvis W Contrast (10001) Open Umbilical Hernia Repair 03/08/2023 CT Upper Ext WO Contrast (02407) 2023 MRI UE Joint WO Contrast (25856) 2023 MRI Cervical WO Contrast (13782) 2023 Encounters Encounter Diagnosis Start Date Code Code Sys tem Strain of unspecified muscle , fascia and tendon at shoulder and upper arm level, unspecified arm, initial encounter 02/22/2024 SNOMED-CT Personal Care Team Section Performer Name Performer Role Active Date Inactive Carter Herman PCP - Primary care physician 2021-11-07
--- OUTSIDE RECORDS SUMMARY | 2024-05-29 15:48 | XMS_ITS ---
Author Organization Unknown Address [address] [place] [address] [phone] Phone Care Team Providers Care Assistant Offset Press Operator Name Role Phone DISHA Pedraza Attending Unavailable JAYE BRUNER Primary Unavailable Immunization [...] Tdap 12/18/2006 Completed 115 CVX Results RESPIRATORY PATHOGEN PANEL + SARS PCR - Collect Date/Time: 12/17/2023 12:52 [facility] ID: [id number] [address] [place] [address], [phone] LOINC: 52578-5 Test Value Unit Reference Range Code Code System Flag ADENOVIRUS NOT DETECTED NORMAL: NOT DETECTED 5778-6 LOINC CORONAVIRUS 229E NOT DETECTED NORMAL: NOT DETECTED 5778-6 LOINC CORONAVIRUS HKU1 NOT DETECTED NORMAL: NOT DETECTED 5778-6 LOINC CORONAVIRUS NL63 NOT DETECTED NORMAL: NOT DETECTED 5778-6 LOINC CORONAVIRUS OC43 NOT DETECTED NORMAL: NOT DETECTED 5778-6 LOINC CORONAVIRUS COVID-19 NOT DETECTED NORMAL: NOT DETECTED 98807-5 LOINC H METAPNEUMOVIRUS NOT DETECTED NORMAL: NO T DETECTED 5778-6 LOINC H RHINO/ENTEROVIRUS DETECTED NORMAL: NOT DETECTED 5778-6 LOINC INFLU A NOT DETECTED NORMAL: NOT DETECTED 5778-6 LOINC INFLU A/H1 NORMAL: NOT DETECTED 5778-6 LOINC INFLU A/H3 NORMAL: NOT DETECTED 5778-6 LOINC INFLU A/H1 2008 NORMAL: NOT DETECTED 5778-6 LOINC INFLU B NOT DETECTED NORMAL: NOT DETECTED 5778-6 LOINC PARAINFLU VIRUS 1 NOT DETECTED NORMAL: NO T DETECTED 5778-6 LOINC PARAINFLU VIRUS 2 NOT DETECTED NORMAL: NO T DETECTED 5778-6 LOINC PARAINFLU VIRUS 3 NOT DETECTED NORMAL: NO T DETECTED 5778-6 LOINC PARAINFLU VIRUS 4 NOT DETECTED NORMAL: NO T DETECTED 5778-6 LOINC RESP SYNCYTIAL VIRUS NOT DETECTED NORMAL: NOT DETECTED 5778-6 LOINC BORDETELLA PARAPERT NOT DETECTED NORMAL: NOT DETECTED 5778-6 LOINC BORDETELLA PERT NOT DETECTED NORMAL: NOT DETECTED 5778-6 LOINC CHLAMYDIA PNEUMONIAE NOT DETECTED NORMAL: NOT DETECTED 5778-6 LOINC MYCOPLAS PNEUMONIAE NOT DETECTED NORMAL: NOT DETECTED 5778-6 LOINC SEND TO [facility]? NO Social History Type Status Start Date End Date Code Code Syst em Smoking History Never smoker (Never Smoked) 174756938 SNOMED CT Sex Male Medications Medication Start Date End Date Route Frequency Dose Code Code System Medication Instructions Home Meds Albuterol Sulfate HFA 0.09MG/1Actuation Inhalation Suspension 01/17/2022 Unknown INHALATION NEEDED EVERY 4 HOURS 2 unit(s) 2505944 RxNorm 2 EACH INHALATION NEEDED EVERY 4 HOURS Amitriptyline 25MG Oral Tablet 03/08/2023 Unknown ORAL NEEDED AT BEDTIME 25 MILLIGRA MS 815287 RxNorm TAKE 25 MILLIGRAMS ORAL NEEDED AT BEDTIME Testosterone Cypionate 100MG/1ML Intramuscular Oil 03/08/2023 Unknown INTRAMUSCUL AR EVERY 2 WEEKS 1 unit(s) 580537 RxNorm GIVE 1 EACH INTRAMUSCUL AR EVERY 2 WEEKS Venlafaxine HCl 75MG Oral Tablet 03/08/2023 Unknown ORAL ONCE A DAY 75 MILLIGRA MS 608176 RxNorm TAKE 75 MILLIGRAMS ORAL ONCE A DAY Vitamin D(Ergocalciferol) AvPak 1.25MG Oral Capsule, Liquid Filled 03/08/2023 Unknown ORAL ONCE A WEEK 1.25 MILLIGRA MS 6430133 RxNorm TAKE 1.25 MILLIGRAMS ORAL ONCE A WEEK HYDROcodone bitartrate-acetami nophen 7.5MG-325MG Oral Tablet 03/08/2023 Unknown BY MOUTH NEEDED EVERY 6 HOURS 1 TABLET 537650 RxNorm TAKE 1 TABLET BY MOUTH NEEDED [...] Open Umbilical Hernia repair with Mesh 03/03 [id number] 07/19/[address] [id number] Problems Problem Start Date Resolved Date Status Code Code System SYNCOPE active 864149292 SNOMED-CT Allergies and Adverse Reactions Allergy Substance Reaction Severity Start Date Concern Status Co de Code System CEFUROXIME Moderate Active CEFIXIME Moderate Active CLARITHROMYCIN Moderate Active CEFPROZIL Moderate Active CEFTIN Active 763206 RxNorm SULFAMETHOXAZOLE/TRIME THOPRIM Active 36952 RxNorm Plan of Treatment MRI Lumbar WO Contrast (32161) 11/17/19 21 MRI Brain WO Contrast (40222) 2 CT Abdomen/Pelvis W Contrast (05455) Open Umbilical Hernia Repair 03/08/2023 CT Upper Ext WO Contrast (66224) 2023 MRI UE Joint WO Contrast (12483) 2023 MRI Cervical WO Contrast (59232) 2023 Personal Care Team Section Performer Name Performer Role Active Date Inactive Carter Herman PCP - Primary care physician 2021-11-07
--- OUTSIDE RECORDS SUMMARY | 2024-05-29 15:48 | XMS_ITS | Clinical Summary ---
Author Organization [facility] [address] [place] Address [address] [place] [phone] Care Team Providers Care Press Set Up Person Name Role Phone Unknown, Notinfile Primary Care Provider Unavail able Allergies Active Allergy Reactions Criticality Noted Date Comments Cephalosporins Medications escitalopram (LEXAPRO) 20 mg tablet 11/03/2021 Active Active Problems No known active problems Medical History Medical History Date Comments Asthma Asthma Family History Medical History Relation Name Comments Diabetes Other Family history of Diabetes mellitus; Relation Name Status Comments Other Social History Tobacco Use Types Packs/Day Years Used Date Smoking Tobacco: Never Smokeless Tobacco: Never Tobacco Cessation:Counseling Given: Not Answered Alcohol Use Standard Drinks/Week Comments No 0 (1 standard drink = 0.6 oz pur e alcohol) Sex and Gender Information Value Date Recorded Sex Assigned at Not on file 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 Gender Identity Not on file Sexual Orientation Not on file Obstetrics History Last Filed Vital Signs Vital Sign Reading Time Taken Comments Blood Pressure 132/82 12/21/2021 12:40 PM CDT Pulse 95 12/21/2021 12:40 PM CDT Temperature 36.8 C (98.3 F) 12/21/2021 12:40 PM CDT Respiratory Rate 18 12/21/2021 12:4 0 PM CDT Oxygen Saturation 97% 12/21/2021 12: 40 PM CDT Inhaled Oxygen Concentration - - Weight 143.2 kg (315 lb 11.2 oz) 2021 12:40 PM CDT Height 186.1 cm (6' 1.27 ) 12/21/2021 1 2:40 PM CDT Body Mass Index 41.35 12/21/2021 12:40 PM CDT Plan of Treatment Health Maintenance Due Date Last Done Comments Depression Screening 1992 Hepatitis C Screening 1992 DTaP/Tdap/Td Vaccine (1 - Tdap) 06/26/2003 Varicella Vaccines (1 of 2 - 13+ 2-dose series) 2005 Hepatitis B Screening 2010 Regular Well Visit/Exam 18-64 2010 Influenza Vaccine (#1) 2023 HPV Vaccines Aged Out No longer eligi ble based on patient's age to complete this topic Pneumococcal vaccine <65 Aged Out No longer eligible based on patient's age to complete this topic Insurance [facility] H[facility]PPO Address: [place] [address] Care Teams Press Set Up Person Relationship Specialty Start Date End Date Unknown, Notinfile PCP - General 12/21/21
--- OUTSIDE RECORDS SUMMARY | 2024-05-29 15:48 | XMS_ITS | Referral Summary ---
Author Organization [facility] [address] [place] Address [address] [place] [phone] Care Team Providers Care Baby Nurse Name Role Phone Unknown, Notinfile Primary Care Provider Unavail able Allergies Active Allergy Reactions Criticality Noted Date Comments Cephalosporins Medications escitalopram (LEXAPRO) 20 mg tablet 11/03/2021 Active Active Problems No known active problems Social History Tobacco Use Types Packs/Day Years Used Date Smoking Tobacco: Never Smokeless Tobacco: Never Tobacco Cessation:Counseling Given: Not Answered Alcohol Use Standard Drinks/Week Comments No 0 (1 standard drink = 0.6 oz pur e alcohol) Sex and Gender Information Value Date Recorded Sex Assigned at Not on file 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
--- OUTSIDE RECORDS SUMMARY | 2024-05-29 15:48 | XMS_ITS ---
Author Organization Unknown Address [address] [place] [address] [phone] Phone Care Team Providers Care Drilling Contractor Name Role Phone SCOTTY CANADA Attending Unavailable [...] CVX Tdap 12/18/2006 Completed 115 CVX Results CHEST 2V - Completed: 2022 12:02 LOINC: EXAM DESCRIPTION: CHEST 2V REASON FOR STUDY: Pneumonia, cough, and SOB. Hx asthma. Duration: 10 days TECHNIQUE: PA and lateral radiographic view(s) of the chest. COMPARISON: 01/15/2022 FINDINGS: LUNGS: There is minimal opacity in the retrocardiac left lung base, atelectasis versus pneumonia. There is no effusion or pneumothorax. HEART/MEDIASTINUM: Cardiac silhouette and mediastinal contours are within normal limits, stable. LINES/TUBES: None. BONES: No acute osseous abnormality. IMPRESSION: 1. Mild retrocardiac opacity, atelectasis versus pneumonia. Follow-up is recommended to document resolution. THIS IS AN ELECTRONICALLY VERIFIED FINAL REPORT 02/22/2023 12:08 PM - Electronically signed by Ramona Dupree M.D. TW: TW Report ID: [id number] Reading Location: [id number] Social History Type Status Start Date End Date Code Code Syst em Smoking History Never smoker (Never Smoked) 891295640 SNOMED CT Sex Male Medications Medication Start Date End Date Route Frequency Dose Code Code System Medication Instructions Home Meds Albuterol Sulfate HFA 0.09MG/1Actuation Inhalation Suspension 01/17/2022 Unknown INHALATION NEEDED EVERY 4 HOURS 2 unit(s) 7771962 RxNorm 2 EACH INHALATION NEEDED EVERY 4 HOURS Amitriptyline 25MG Oral Tablet 03/08/2023 Unknown ORAL NEEDED AT BEDTIME 25 MILLIGRA MS 442981 RxNorm TAKE 25 MILLIGRAMS ORAL NEEDED AT BEDTIME Testosterone Cypionate 100MG/1ML Intramuscular Oil 03/08/2023 Unknown INTRAMUSCUL AR EVERY 2 WEEKS 1 unit(s) 767260 RxNorm GIVE 1 EACH INTRAMUSCUL AR EVERY 2 WEEKS Venlafaxine HCl 75MG Oral Tablet 03/08/2023 Unknown ORAL ONCE A DAY 75 MILLIGRA MS 776675 RxNorm TAKE 75 MILLIGRAMS ORAL ONCE A DAY Vitamin D(Ergocalciferol) AvPak 1.25MG Oral Capsule, Liquid Filled 03/08/2023 Unknown ORAL ONCE A WEEK 1.25 MILLIGRA MS 5975359 RxNorm TAKE 1.25 MILLIGRAMS ORAL ONCE A WEEK HYDROcodone bitartrate-acetami nophen 7.5MG-325MG Oral Tablet 03/08/2023 Unknown BY MOUTH NEEDED EVERY 6 HOURS 1 TABLET 116789 RxNorm TAKE 1 TABLET BY MOUTH NEEDED [...] Open Umbilical Hernia repair with Mesh 03/03 [id number] 07/19/[address] [id number] Problems Problem Start Date Resolved Date Status Code Code System SYNCOPE active 556727754 SNOMED-CT Allergies and Adverse Reactions Allergy Substance Reaction Severity Start Date Concern Status Co de Code System CEFUROXIME Moderate Active CEFIXIME Moderate Active CLARITHROMYCIN Moderate Active CEFPROZIL Moderate Active CEFTIN Active 224279 RxNorm SULFAMETHOXAZOLE/TRIME THOPRIM Active 21786 RxNorm Plan of Treatment MRI Lumbar WO Contrast (08656) 11/17/19 MRI Brain WO Contrast (69605) CT Abdomen/Pelvis W Contrast (90174) Open Umbilical Hernia Repair 03/08/2023 CT Upper Ext WO Contrast (82577) 2023 MRI UE Joint WO Contrast (92803) 2023 MRI Cervical WO Contrast (88533) 2023 Encounters Encounter Diagnosis Start Date Code Code Sys tem Wheezing 02/22/2023 16669864 SNOMED-CT Personal Care Team Section Performer Name Performer Role Active Date Inactive Carter Herman PCP - Primary care physician 2021-11-07 Imaging Narrative Notes
--- OUTSIDE RECORDS SUMMARY | 2024-05-29 15:49 | XMS_ITS ---
Author Organization Unknown Address [address] [place] [address] [phone] Phone Care Team Providers Care Impregnator Electrolytic Capacitors Name Role Phone JAYE BRUNER Attending Unavailable [...] em Smoking History Never smoker (Never Smoked) 655563509 SNOMED CT Sex Male Medications Medication Start Date End Date Route Frequency Dose Code Code System Medication Instructions Home Meds Albuterol Sulfate HFA 0.09MG/1Actuation Inhalation Suspension 01/17/2022 Unknown INHALATION NEEDED EVERY 4 HOURS 2 unit(s) 5393319 RxNorm 2 EACH INHALATION NEEDED EVERY 4 HOURS Amitriptyline 25MG Oral Tablet 03/08/2023 Unknown ORAL NEEDED AT BEDTIME 25 MILLIGRA MS 976099 RxNorm TAKE 25 MILLIGRAMS ORAL NEEDED AT BEDTIME Testosterone Cypionate 100MG/1ML Intramuscular Oil 03/08/2023 Unknown INTRAMUSCUL AR EVERY 2 WEEKS 1 unit(s) 115316 RxNorm GIVE 1 EACH INTRAMUSCUL AR EVERY 2 WEEKS Venlafaxine HCl 75MG Oral Tablet 03/08/2023 Unknown ORAL ONCE A DAY 75 MILLIGRA MS 584407 RxNorm TAKE 75 MILLIGRAMS ORAL ONCE A DAY Vitamin D(Ergocalciferol) AvPak 1.25MG Oral Capsule, Liquid Filled 03/08/2023 Unknown ORAL ONCE A WEEK 1.25 MILLIGRA MS 9673818 RxNorm TAKE 1.25 MILLIGRAMS ORAL ONCE A WEEK HYDROcodone bitartrate-acetami nophen 7.5MG-325MG Oral Tablet 03/08/2023 Unknown BY MOUTH NEEDED EVERY 6 HOURS 1 TABLET 638802 RxNorm TAKE 1 TABLET BY MOUTH NEEDED [...] Open Umbilical Hernia repair with Mesh 03/03 [id number] 07/19/[address] [id number] Problems Problem Start Date Resolved Date Status Code Code System SYNCOPE active 799524626 SNOMED-CT Allergies and Adverse Reactions Allergy Substance Reaction Severity Start Date Concern Status Co de Code System CEFUROXIME Moderate Active CEFIXIME Moderate Active CLARITHROMYCIN Moderate Active CEFPROZIL Moderate Active CEFTIN Active 084072 RxNorm SULFAMETHOXAZOLE/TRIME THOPRIM Active 56075 RxNorm Plan of Treatment MRI Lumbar WO Contrast (21614) 11/17/19 21 MRI Brain WO Contrast (61627) 2 CT Abdomen/Pelvis W Contrast (99779) Open Umbilical Hernia Repair 03/08/2023 CT Upper Ext WO Contrast (76610) 2023 MRI UE Joint WO Contrast (67281) 2023 MRI Cervical WO Contrast (30947) 2023 Encounters Encounter Diagnosis Start Date Code Code Sys tem Pain in left shoulder 05/08/2024 SNOMED -CT Personal Care Team Section Performer Name Performer Role Active Date Inactive Da edward Cadet PCP - Primary care physician 2021-11-07
--- OUTSIDE RECORDS SUMMARY | 2024-05-29 15:49 | XMS_ITS ---
Author Organization Unknown Address [address] [place] [address] [phone] Phone Care Team Providers Care Braided Rug Maker Name Role Phone JAYE SIERRAALD Attending Unavailable Immunization Immunization Date Status Additional [...] CVX Tdap 12/18/2006 Completed 115 CVX Results TESTOSTERONE FREE & TOTAL - Collect Date/Time: 02/04/2024 15:48 [facility] ID: [id number] [place] [address], [id number] LOINC: Test Value Unit Reference Range Code Code System Flag Testosterone 237 096-365 7192-8 LOINC L Free Testosterone(Direct) 9.0 8.7-25.1 2991-8 LOINC MICROALBUMIN - Collect Date/ Time: 02/04/2024 15:48 [facility] ID: [id number] [address] [place], [place], [phone] LOINC: 24119-4 Test Value Unit Reference Range Code Code System Flag MICROALBUMIN < 6.0 mg/L L=0.0 H=16.7 49670-1 LOINC UR CREATININE 57.50 mg/dL L=30.00 H=125 2161-8 LOINC MA/CR 10.4 mg/gCR Social History Type Status Start Date End Date Code Code Syst em Smoking History Never smoker (Never Smoked) [id number] SNOMED CT Sex Male Medications Medication Start Date End Date Route Frequency Dose Code Code System Medication Instructions Home Meds Albuterol Sulfate HFA 0.09MG/1Actuation Inhalation Suspension 01/17/2022 Unknown INHALATION NEEDED EVERY 4 HOURS 2 unit(s) 8706736 RxNorm 2 EACH INHALATION NEEDED EVERY 4 HOURS Amitriptyline 25MG Oral Tablet 03/08/2023 Unknown ORAL NEEDED AT BEDTIME 25 MILLIGRA MS 245076 RxNorm TAKE 25 MILLIGRAMS ORAL NEEDED AT BEDTIME Testosterone Cypionate 100MG/1ML Intramuscular Oil 03/08/2023 Unknown INTRAMUSCUL AR EVERY 2 WEEKS 1 unit(s) 177978 RxNorm GIVE 1 EACH INTRAMUSCUL AR EVERY 2 WEEKS Venlafaxine HCl 75MG Oral Tablet 03/08/2023 Unknown ORAL ONCE A DAY 75 MILLIGRA MS 215399 RxNorm TAKE 75 MILLIGRAMS ORAL ONCE A DAY Vitamin D(Ergocalciferol) AvPak 1.25MG Oral Capsule, Liquid Filled 03/08/2023 Unknown ORAL ONCE A WEEK 1.25 MILLIGRA MS 8199720 RxNorm TAKE 1.25 MILLIGRAMS ORAL ONCE A WEEK HYDROcodone bitartrate-acetami nophen 7.5MG-325MG Oral Tablet 03/08/2023 Unknown BY MOUTH NEEDED EVERY 6 HOURS 1 TABLET 504857 RxNorm TAKE 1 TABLET BY MOUTH NEEDED [...] Open Umbilical Hernia repair with Mesh 03/03 [id number] 07/19/[address] [id number] Problems Problem Start Date Resolved Date Status Code Code System SYNCOPE active 816638826 SNOMED-CT Allergies and Adverse Reactions Allergy Substance Reaction Severity Start Date Concern Status Co de Code System CEFUROXIME Moderate Active CEFIXIME Moderate Active CLARITHROMYCIN Moderate Active CEFPROZIL Moderate Active CEFTIN Active 904960 RxNorm SULFAMETHOXAZOLE/TRIME THOPRIM Active 26381 RxNorm Plan of Treatment MRI Lumbar WO Contrast (46794) 11/17/19 MRI Brain WO Contrast (28695) CT Abdomen/Pelvis W Contrast (10443) Open Umbilical Hernia Repair 03/08/2023 CT Upper Ext WO Contrast (98631) 2023 MRI UE Joint WO Contrast (26284) 2023 MRI Cervical WO Contrast (92274) 2023 Personal Care Team Section Performer Name Performer Role Active Date Inactive Carter Herman PCP - Primary care physician 2021-11-07
[2024-05-29 16:26] VITALS: BP 161/90; PULSE 102; RESP 20; TEMP 36.6; O2SAT 97
[2024-05-29 16:36] LABS: Glucose Point of Care 249 mg/dl (65-105)
--- NOTE | 2024-05-29 17:34 | ED_ITS ---
HPI - Recheck/Abnormal Lab/Rx General Chief Complaint: Recheck/Abnormal Lab/Rx <Dorita Agudelo PA-C - Last Filed: 05/29/24 17:42> Stated Complaint: elevated blood sugar 525 newly dx type 2 <WYATT Cortes Last Filed: 05/29/24 17:42> Time Seen by Provider: 05/29/24 17:34 <WYATT Cortes Last Filed: 05/29/24 17:42> Focused HPI: Patient is a 33-year-old male who presents the ED with report of elevated blood sugars. Patient reports he had previously been diagnosed with prediabetes. Over the last 1 week, he has been checking his blood sugars and they have been persistently elevated into the 400s. He contacted his primary care doctor and was prescribed glipizide yesterday. Began this last night and had a dose this afternoon. He has an appointment with his PCP tomorrow, but noted that his blood sugars are elevated into the 500s today and was referred to the ED for further evaluation. Patient reports polyuria, polydipsia. He also reports feeling very anxious currently. Reports pain throughout his chest, mild difficulty breathing, body aches, headache. Denies cough or significant shortness of breath. Denies fevers. Denies N/V. GENERAL: Anxious-appearing, morbidly obese with BMI of 43.9, and in no acute distress. HEAD: Normocephalic, atraumatic. CHEST: Clear to auscultation. ?No respiratory distress. No focal lung sounds. HEART: Regular rate and rhythm.? NEURO: ?Alert and oriented x3. Patient screened in triage and initial orders placed.? ?Additional care and disposition to be based upon?diagnostic testing and treatment. <WYATT Cortes Last Filed: 05/29/24 17:42> Source: patient <WYATT Cortes Last Filed: 05/29/24 17:42> Mode of arrival: ambulatory <WYATT Cortes Last Filed: 05/29/24 17:42> Limitations: no limitations <WYATT Cortes Last Filed: 05/29/24 17:42> History of Present Illness HPI narrative: Agree with triage note above. He states that he still having some headache and anxiety over being in the ER. States that he has an appointment with PCP again tomorrow. <Mayo Arita PA-C - Last Filed: 05/30/24 03:13> Related Data Home Medications: Home Medications ?Medication ?Instructions ?Recorded ?Confirmed ?Last Taken ?Type testosterone cypionate 100 mg/mL 50 mg IM [id number] 07/22/23 07/24/23 Unknown History intramuscular oil venlafaxine 75 mg capsule,extended 75 mg PO DAILY 07/22/23 10/13/23 Unknown History release 24 hr <WYATT Cortes Last Filed: 05/29/24 17:42> Allergies/Adverse Reactions: Allergies Allergy/AdvReac Type Severity Reaction Status Date / Time cefotetan (Cefotan) Allergy Intermediate Anaphylaxis Verified 05/29/24 15:42 bee venom protein (honey Allergy Anaphylaxis Verified 05/29/24 15:42 bee) (bees) <WYATT Cortes Last Filed: 05/29/24 17:42> Review of Systems 2 Review of Systems: All systems as dictated in HPI <WYATT Cuello Last Filed: 05/30/24 03:13> PMFSH Past Medical History Medical History: Medical History Anxiety Asthma Chest pain COVID-19 Epididymitis Orchitis Viral gastroenteritis <WYATT Cortes Last Filed: 05/29/24 17:42> Surgical History Surgical History: Surgical History H/O hand surgery History of hernia surgery <WYATT Cortes Last Filed: 05/29/24 17:42> Social History Social History: Social History Smoking status: Former smoker Alcohol intake: current Substance use: never Substance use type: does not use Living arrangements: with family Occupation/Education: occupation Additional occupation/education comments: labor <WYATT Cortes Last Filed: 05/29/24 17:42> Exam 2 Narrative: GENERAL: Well-appearing, well-nourished, and in no acute distress. HEAD: Normocephalic, atraumatic. EYES: PERRLA and EOMI. ENT: Nares clear, no rhinorrhea or epistaxis. Mucous membranes moist. Oropharynx without tonsillar hypertrophy exudate or other lesions. NECK: Supple. No adenopathy or masses. CHEST: No respiratory distress. Clear to auscultation. No wheezes rales or rhonchi HEART: Regular rate and rhythm. No murmur heard. Normal peripheral pulses. ABDOMEN: Soft, nontender, nondistended, normal active bowel sounds. MSK: Normal range of motion. No edema. SKIN: Warm, dry, no rash. NEURO: Alert and oriented x4. No focal deficits. PSYCH: Normal mood and affect. <WYATT Cuello Last Filed: 05/30/24 03:13> Course Vital Signs Vital signs: Vital Signs Temperature 97.8 F 05/29/24 16:26 Pulse Rate 102 H 05/29/24 16:26 Respiratory Rate 20 05/29/24 16:26 Blood Pressure 161/90 H 05/29/24 16:26 Pulse Oximetry 97 05/29/24 16:26 Oxygen Delivery Room Air 05/29/24 16:26 Temperature 98.3 F 05/29/24 23:05 Pulse Rate 96 05/30/24 02:11 Respiratory Rate 18 05/30/24 02:11 Blood Pressure 140/88 05/30/24 02:11 Pulse Oximetry 99 05/30/24 02:11 Oxygen Delivery Room Air 05/29/24 16:26 <WYATT Cortes Last Filed: 05/29/24 17:42> Vital Signs Temperature 97.8 F 05/29/24 16:26 Pulse Rate 102 H 05/29/24 16:26 Respiratory Rate 20 05/29/24 16:26 Blood Pressure 161/90 H 05/29/24 16:26 Pulse Oximetry 97 05/29/24 16:26 Oxygen Delivery Room Air 05/29/24 16:26 Temperature 98.3 F 05/29/24 23:05 Pulse Rate 96 05/30/24 02:11 Respiratory Rate 18 05/30/24 02:11 Blood Pressure 140/88 05/30/24 02:11 Pulse Oximetry 99 05/30/24 02:11 Oxygen Delivery Room Air 05/29/24 16:26 <Mayo Arita PA-C - Last Filed: 05/30/24 03:13> MDM - Recheck/Abnormal Lab/Rx MDM Narrative Medical decision making narrative: MSE by KRISHNA in triage. <Dorita Agudelo PA-C - Last Filed: 05/29/24 17:42> MSE by KRISHNA in triage. This is a 33-year-old male who presents to the ED for acute hyperglycemia. Vitals are normal. Exam is unremarkable overall Lab work shows elevated blood sugar on arrival, however does not appear to be in DKA. Chest x-ray is unremarkable. EKG shows normal sinus rhythm. He does appear mildly dehydrated. He was given fluids, headache cocktail here with good relief of symptoms. Patient will be discharged in stable condition. Supportive measures discussed and return precautions given. Patient is understanding and agreeable with plan for discharge with PCP follow-up. <Mayo Arita PA-C - Last Filed: 05/30/24 03:13> Lab Data Result diagrams: 05/29/24 20:21 05/29/24 19:58 <Dorita Agudelo PA-C - Last Filed: 05/29/24 17:42> Labs: Lab Results 05/29/24 05/29/24 05/29/24 Range/Units 16:32 18:47 19:58 WBC (4.5-10.0) K/mm3 RBC (4.6-6.20) M/mm3 Hgb (14.0-18.0) g/dL Hct (42.0-52.0) % MCV (80-100) fl MCH (26-34) pg MCHC (32-36) g/dl RDW (11.5-14.5) % Plt Count (150-375) k/mm3 MPV (7.4-10.4) fl Immature Gran % (Auto) (0-0.5) % Neut % (Auto) (45.5-73.1) % Lymph % (Auto) (18.3-44.2) % [place] % (Auto) (2.6-8.5) % Eos % (Auto) (0-4.4) % Baso % (Auto) (0.2-1.2) % Lymph # (Auto) (0.9-3.2) K/mm3 [place] # (Auto) (0.1-0.6) K/mm3 Eos # (Auto) (0-0.3) K/mm3 Baso # (Auto) (0.0-0.1) K/mm3 Abs Immat Gran (auto) (0.00-0.031) K/mm3 Absolute Neuts (auto) (1.3-6.7) K/mm3 Absolute Nucleated RBC (0.0-0.012) K/mm3 Nucleated RBC % (0.0-0.2) % PT (11.1-14.7) Seconds INR APTT (22.3-36.8) Seconds Sodium 141 (137-145) mmol/L Potassium 4.1 (3.4-5.0) mmol/L Chloride 108 H (98-107) mmol/L Carbon Dioxide 20 L (22-30) mmol/L Anion Gap 13 H (4-12) mmol/L BUN 14 (9-20) mg/dL Creatinine 0.76 (0.7-1.3) mg/dL Estim Creat Clear Calc 187 ml/min Estimated GFR > 60 (59 - ) Glucose 146 H (65-110) mg/dL POC Capillary Glucose 249 H (65-105) mg/dl Hemoglobin A1c (<5.7) % Lactic Acid 0.8 (0.7-2.0) mmol/L Calcium 9.7 (8.4-10.2) mg/dL Magnesium 2.1 (1.6-2.3) mg/dL Total Bilirubin 0.4 (0.2-1.3) mg/dL AST 34 (17-59) U/L ALT 43 (6-50) U/L Alkaline Phosphatase 69 (38-126) U/L Total Protein 8.0 (6.3-8.2) g/dL Albumin 4.5 (3.5-5.1) g/dL Beta-Hydroxybutyrate/Acetoacetate 0.12 (0.02-0.27) mmol/L Urine Color Yellow (Yellow) Urine Appearance Clear (Clear) Urine pH 6.0 (5.0-9.0) Ur Specific [place] 1.024 (1.001-1.035) Urine Protein Negative (Negative) mg/dL Urine Glucose (UA) 3+ H (Negative) mg/dL Urine Ketones Negative (Negative) mg/dL Ur Blood (Man) Negative (Negative) Urine Nitrate Negative (Negative) Urine Bilirubin Negative (Negative) Urine Urobilinogen 0.2 (<2.0) mg/dL Leukocyte Esterase Rfl Negative (Negative) YASH/UL Influenza A (RT-PCR) Negative (Negative) Influenza B (RT-PCR) Negative (Negative) RSV (RT-PCR) Negative (Negative) SARS-CoV-2 RNA (RT-PCR) Negative (Negative) 05/29/24 05/29/24 05/30/24 Range/Units 20:21 22:44 01:32 WBC 8.4 (4.5-10.0) K/mm3 RBC 5.22 (4.6-6.20) M/mm3 Hgb 15.2 (14.0-18.0) g/dL Hct 45.4 (42.0-52.0) % MCV 87.0 (80-100) fl MCH 29.1 (26-34) pg MCHC 33.5 (32-36) g/dl RDW 13.2 (11.5-14.5) % Plt Count 331 (150-375) k/mm3 MPV 9.9 (7.4-10.4) fl Immature Gran % (Auto) 0.6 H (0-0.5) % Neut % (Auto) 58.4 (45.5-73.1) % Lymph % (Auto) 23.9 (18.3-44.2) % [place] % (Auto) 8.7 H (2.6-8.5) % Eos % (Auto) 7.6 H (0-4.4) % Baso % (Auto) 0.8 (0.2-1.2) % Lymph # (Auto) 2.01 (0.9-3.2) K/mm3 [place] # (Auto) 0.7 H (0.1-0.6) K/mm3 Eos # (Auto) 0.6 H (0-0.3) K/mm3 Baso # (Auto) 0.1 (0.0-0.1) K/mm3 Abs Immat Gran (auto) 0.05 H (0.00-0.031) K/mm3 Absolute Neuts (auto) 4.9 (1.3-6.7) K/mm3 Absolute Nucleated RBC 0.000 (0.0-0.012) K/mm3 Nucleated RBC % 0.0 (0.0-0.2) % PT 12.7 (11.1-14.7) Seconds INR 0.9 APTT 25.7 (22.3-36.8) Seconds Sodium (137-145) mmol/L Potassium (3.4-5.0) mmol/L Chloride (98-107) mmol/L Carbon Dioxide (22-30) mmol/L Anion Gap (4-12) mmol/L BUN (9-20) mg/dL Creatinine (0.7-1.3) mg/dL Estim Creat Clear Calc ml/min Estimated GFR (59 - ) Glucose (65-110) mg/dL POC Capillary Glucose 117 H 132 H (65-105) mg/dl Hemoglobin A1c 9.1 H (<5.7) % Lactic Acid (0.7-2.0) mmol/L Calcium (8.4-10.2) mg/dL Magnesium (1.6-2.3) mg/dL Total Bilirubin (0.2-1.3) mg/dL AST (17-59) U/L ALT (6-50) U/L Alkaline Phosphatase (38-126) U/L Total Protein (6.3-8.2) g/dL Albumin (3.5-5.1) g/dL Beta-Hydroxybutyrate/Acetoacetate (0.02-0.27) mmol/L Urine Color (Yellow) Urine Appearance (Clear) Urine pH (5.0-9.0) Ur Specific [place] (1.001-1.035) Urine Protein (Negative) mg/dL Urine Glucose (UA) (Negative) mg/dL Urine Ketones (Negative) mg/dL Ur Blood (Man) (Negative) Urine Nitrate (Negative) Urine Bilirubin (Negative) Urine Urobilinogen (<2.0) mg/dL Leukocyte Esterase Rfl (Negative) YASH/UL Influenza A (RT-PCR) (Negative) Influenza B (RT-PCR) (Negative) RSV (RT-PCR) (Negative) SARS-CoV-2 RNA (RT-PCR) (Negative) <Dorita Agudelo PA-C - Last Filed: 05/29/24 17:42> Lab Results 05/29/24 05/29/24 05/29/24 Range/Units 16:32 18:47 19:58 WBC (4.5-10.0) K/mm3 RBC (4.6-6.20) M/mm3 Hgb (14.0-18.0) g/dL Hct (42.0-52.0) % MCV (80-100) fl MCH (26-34) pg MCHC (32-36) g/dl RDW (11.5-14.5) % Plt Count (150-375) k/mm3 MPV (7.4-10.4) fl Immature Gran % (Auto) (0-0.5) % Neut % (Auto) (45.5-73.1) % Lymph % (Auto) (18.3-44.2) % [place] % (Auto) (2.6-8.5) % Eos % (Auto) (0-4.4) % Baso % (Auto) (0.2-1.2) % Lymph # (Auto) (0.9-3.2) K/mm3 [place] # (Auto) (0.1-0.6) K/mm3 Eos # (Auto) (0-0.3) K/mm3 Baso # (Auto) (0.0-0.1) K/mm3 Abs Immat Gran (auto) (0.00-0.031) K/mm3 Absolute Neuts (auto) (1.3-6.7) K/mm3 Absolute Nucleated RBC (0.0-0.012) K/mm3 Nucleated RBC % (0.0-0.2) % PT (11.1-14.7) Seconds INR APTT (22.3-36.8) Seconds Sodium 141 (137-145) mmol/L Potassium 4.1 (3.4-5.0) mmol/L Chloride 108 H (98-107) mmol/L Carbon Dioxide 20 L (22-30) mmol/L Anion Gap 13 H (4-12) mmol/L BUN 14 (9-20) mg/dL Creatinine 0.76 (0.7-1.3) mg/dL Estim Creat Clear Calc 187 ml/min Estimated GFR > 60 (59 - ) Glucose 146 H (65-110) mg/dL POC Capillary Glucose 249 H (65-105) mg/dl Hemoglobin A1c (<5.7) % Lactic Acid 0.8 (0.7-2.0) mmol/L Calcium 9.7 (8.4-10.2) mg/dL Magnesium 2.1 (1.6-2.3) mg/dL Total Bilirubin 0.4 (0.2-1.3) mg/dL AST 34 (17-59) U/L ALT 43 (6-50) U/L Alkaline Phosphatase 69 (38-126) U/L Total Protein 8.0 (6.3-8.2) g/dL Albumin 4.5 (3.5-5.1) g/dL Beta-Hydroxybutyrate/Acetoacetate 0.12 (0.02-0.27) mmol/L Urine Color Yellow (Yellow) Urine Appearance Clear (Clear) Urine pH 6.0 (5.0-9.0) Ur Specific [place] 1.024 (1.001-1.035) Urine Protein Negative (Negative) mg/dL Urine Glucose (UA) 3+ H (Negative) mg/dL Urine Ketones Negative (Negative) mg/dL Ur Blood (Man) Negative (Negative) Urine Nitrate Negative (Negative) Urine Bilirubin Negative (Negative) Urine Urobilinogen 0.2 (<2.0) mg/dL Leukocyte Esterase Rfl Negative (Negative) YASH/UL Influenza A (RT-PCR) Negative (Negative) Influenza B (RT-PCR) Negative (Negative) RSV (RT-PCR) Negative (Negative) SARS-CoV-2 RNA (RT-PCR) Negative (Negative) 05/29/24 05/29/24 05/30/24 Range/Units 20:21 22:44 01:32 WBC 8.4 (4.5-10.0) K/mm3 RBC 5.22 (4.6-6.20) M/mm3 Hgb 15.2 (14.0-18.0) g/dL Hct 45.4 (42.0-52.0) % MCV 87.0 (80-100) fl MCH 29.1 (26-34) pg MCHC 33.5 (32-36) g/dl RDW 13.2 (11.5-14.5) % Plt Count 331 (150-375) k/mm3 MPV 9.9 (7.4-10.4) fl Immature Gran % (Auto) 0.6 H (0-0.5) % Neut % (Auto) 58.4 (45.5-73.1) % Lymph % (Auto) 23.9 (18.3-44.2) % [place] % (Auto) 8.7 H (2.6-8.5) % Eos % (Auto) 7.6 H (0-4.4) % Baso % (Auto) 0.8 (0.2-1.2) % Lymph # (Auto) 2.01 (0.9-3.2) K/mm3 [place] # (Auto) 0.7 H (0.1-0.6) K/mm3 Eos # (Auto) 0.6 H (0-0.3) K/mm3 Baso # (Auto) 0.1 (0.0-0.1) K/mm3 Abs Immat Gran (auto) 0.05 H (0.00-0.031) K/mm3 Absolute Neuts (auto) 4.9 (1.3-6.7) K/mm3 Absolute Nucleated RBC 0.000 (0.0-0.012) K/mm3 Nucleated RBC % 0.0 (0.0-0.2) % PT 12.7 (11.1-14.7) Seconds INR 0.9 APTT 25.7 (22.3-36.8) Seconds Sodium (137-145) mmol/L Potassium (3.4-5.0) mmol/L Chloride (98-107) mmol/L Carbon Dioxide (22-30) mmol/L Anion Gap (4-12) mmol/L BUN (9-20) mg/dL Creatinine (0.7-1.3) mg/dL Estim Creat Clear Calc ml/min Estimated GFR (59 - ) Glucose (65-110) mg/dL POC Capillary Glucose 117 H 132 H (65-105) mg/dl Hemoglobin A1c 9.1 H (<5.7) % Lactic Acid (0.7-2.0) mmol/L Calcium (8.4-10.2) mg/dL Magnesium (1.6-2.3) mg/dL Total Bilirubin (0.2-1.3) mg/dL AST (17-59) U/L ALT (6-50) U/L Alkaline Phosphatase (38-126) U/L Total Protein (6.3-8.2) g/dL Albumin (3.5-5.1) g/dL Beta-Hydroxybutyrate/Acetoacetate (0.02-0.27) mmol/L Urine Color (Yellow) Urine Appearance (Clear) Urine pH (5.0-9.0) Ur Specific [place] (1.001-1.035) Urine Protein (Negative) mg/dL Urine Glucose (UA) (Negative) mg/dL Urine Ketones (Negative) mg/dL Ur Blood (Man) (Negative) Urine Nitrate (Negative) Urine Bilirubin (Negative) Urine Urobilinogen (<2.0) mg/dL Leukocyte Esterase Rfl (Negative) YASH/UL Influenza A (RT-PCR) (Negative) Influenza B (RT-PCR) (Negative) RSV (RT-PCR) (Negative) SARS-CoV-2 RNA (RT-PCR) (Negative) <WYATT Cuello Last Filed: 05/30/24 03:13> ECG Data EKG #1: ECG completion date: 05/29/24 <WYATT Cuello Last Filed: 05/30/24 03:13> ECG completion time: 20:11 <WYATT Cuello Last Filed: 05/30/24 03:13> Prior ECG tracings: available for review <WYATT Cuello Last Filed: 05/30/24 03:13> Interpretation: Sinus rhythm Rate 96 QTC normal No acute ischemic findings <WYATT Cuello Last Filed: 05/30/24 03:13> Discharge Plan Discharge Clinical Impression: Headache, Acute hyperglycemia <WYATT Cortes Last Filed: 05/29/24 17:42> Patient Disposition: Home, Self-Care <WYATT Cortes Last Filed: 05/29/24 17:42> Condition: Stable <Dorita Agudelo PA-C - Last Filed: 05/29/24 17:42> Instructions: Antibiotic Form <Dorita Agudelo PA-C - Last Filed: 05/29/24 17:42> Additional Instructions: Your exam and imaging today are reassuring. Please follow-up closely with your PCP. If you have any new or worsening symptoms please return to the ER for further evaluation. <Dorita Agudelo PA-C - Last Filed: 05/29/24 17:42> Patient Language: French <Dorita Agudelo PA-C - Last Filed: 05/29/24 17:42> Prescriptions: No Action tramadol 50 mg tablet 50 mg PO Q6H PRN (Reason: pain) Qty: 20 0RF venlafaxine 75 mg capsule,extended release 24hr 75 mg PO DAILY testosterone cypionate 100 mg/mL oil 50 mg IM [id number] cetirizine [Zyrtec] 10 mg tablet 10 mg PO DAILY Qty: 30 0RF <Dorita Agudelo PA-C - Last Filed: 05/29/24 17:42> Follow-up/Referrals: Raffi,Gina Louis NP [Primary Care Provider] - <Dorita Agudelo PA-C - Last Filed: 05/29/24 17:42> Time of Disposition: 01:59 <Dorita Agudelo PA-C - Last Filed: 05/29/24 17:42> 01:59 <Mayo Arita PA-C - Last Filed: 05/30/24 03:13>
--- NOTE | 2024-05-29 17:35 | ECG_ITS ---
Test Date: 2024-05-29 20:11:10 Measurements Intervals [place] Rate: 96 P: 30 SC: 146 QRS: 12 QRSD: 113 T: 21 QT: 335 QTc: 423 Interpretive Statements SINUS RHYTHM POSSIBLE LEFT ATRIAL ENLARGEMENT INTRAVENTRICULAR CONDUCTION DELAY BORDERLINE ECG Compared to ECG 10/13/2023 18:43:14 Intraventricular conduction delay now present Electronically Signed On 05-30-2024 06:43:22 [employer]IL [employer] by Abelardo Caruso D.O.
[2024-05-29 18:56] LABS: Add Urine Microscopic? NO; Appearance Urine Clear (Clear); Bilirubin Urine Negative (Negative); Blood Urine Negative (Negative); Color Urine Yellow (Yellow); Glucose Urine UA 3+ mg/dL (Negative); Ketones Urine Negative (Negative); Leukocyte Esterase Ur Negative LEU/UL (Negative); Nitrate Urine Negative (Negative); Protein Urine Negative (Negative); Specific Grav Ur 1.024 (1.001-1.035); Urobilinogen Urine 0.2 mg/dL (<2.0)
[2024-05-29] MEDS: LORazepam (*CRX) 0.5 MG TABLET PO (20:04)
[2024-05-29 20:16] LABS: Lactic Acid Reflex 0.8 mmol/L (0.7-2.0)
[2024-05-29 20:20] LABS: Alanine Aminotransferase 43 U/L (6-50); Albumin Level 4.5 g/dL (3.5-5.1); Alkaline Phosphatase 69 U/L (38-126); Anion Gap 13 mmol/L (4-12); Aspartate Amino Transferase 34 U/L (17-59); Bilirubin,Total 0.4 mg/dL (0.2-1.3); Blood Urea Nitrogen 14 mg/dL (9-20); Calcium 9.7 mg/dL (8.4-10.2); Carbon Dioxide 20 mmol/L (22-30); Chloride 108 mmol/L (98-107); Estimated CRCL calculation 187 ml/min; Estimated Glomerular Filt Rate > 60; Glucose 146 mg/dL (65-110); Magnesium 2.1 mg/dL (1.6-2.3); Potassium 4.1 mmol/L (3.4-5.0); Sodium 141 mmol/L (137-145)
[2024-05-29 20:27] LABS: Basophils Absolute Auto 0.1 K/mm3 (0.0-0.1); Basophils Percent Auto 0.8 % (0.2-1.2); Eosinophils Absolute Auto 0.6 K/mm3 (0-0.3); Eosinophils Percent Auto 7.6 % (0-4.4); Hematocrit 45.4 % (42.0-52.0); Hemoglobin 15.2 g/dL (14.0-18.0); Immature Granulocyte Absolute 0.05 K/mm3 (0.00-0.031); Immature Granulocyte Percent A 0.6 % (0-0.5); Lymphocytes Absolute Auto 2.01 K/mm3 (0.9-3.2); Lymphocytes Percent Auto 23.9 % (18.3-44.2); Mean Corpuscular HGB Conc 33.5 g/dl (32-36); Mean Corpuscular Hemoglobin 29.1 pg (26-34); Mean Platelet Volume 9.9 fl (7.4-10.4); Monocytes Absolute Auto 0.7 K/mm3 (0.1-0.6); Monocytes Percent Auto 8.7 % (2.6-8.5); Neutrophils Absolute Auto 4.9 K/mm3 (1.3-6.7); Neutrophils Percent Auto 58.4 % (45.5-73.1); Platelet Count Result 331 k/mm3 (150-375); Red Blood Count 5.22 M/mm3 (4.6-6.20); Red Cell Distribution Width 13.2 % (11.5-14.5); White Blood Count 8.4 K/mm3 (4.5-10.0)
[2024-05-29 20:28] LABS: Beta-Hydroxybutyrate/Acetoacetate 0.12 mmol/L (0.02-0.27)
[2024-05-29 20:37] LABS: INR 0.9; Partial Thromboplastin Time 25.7 Seconds (22.3-36.8); Prothrombin Time 12.7 Seconds (11.1-14.7)
[2024-05-29 20:40] LABS: Influenza A QL RT-PCR Negative (Negative); Influenza B QL RT-PCR Negative (Negative); RSV RNA, RT-PCR Negative (Negative); SARS-CoV-2 RNA PCR Negative (Negative)
[2024-05-29 22:00] LABS: Hemoglobin A1C 9.1 % (<5.7)
[2024-05-29 22:49] LABS: Glucose Point of Care 117 mg/dl (65-105)
[2024-05-29 23:05] VITALS: BP 144/85; PULSE 101; RESP 14; TEMP 36.8; O2SAT 98
--- OUTSIDE RECORDS SUMMARY | 2024-05-30 00:25 | XMS_ITS ---
Author Organization Unknown Address [address] [place] [phone] Phone Care Team Providers Care Pipe Finisher Name Role Phone KAREN JULIEN Attending Unavailable [...] em Smoking History Never smoker (Never Smoked) [id number] SNOMED CT Sex Male Medications Medication Start Date End Date Route Frequency Dose Code Code System Medication Instructions Home Meds Albuterol Sulfate HFA 0.09MG/1Actuation Inhalation Suspension 01/17/2022 Unknown INHALATION NEEDED EVERY 4 HOURS 2 unit(s) 5232766 RxNorm 2 EACH INHALATION NEEDED EVERY 4 HOURS Amitriptyline 25MG Oral Tablet 03/08/2023 Unknown ORAL NEEDED AT BEDTIME 25 MILLIGRA MS 995420 RxNorm TAKE 25 MILLIGRAMS ORAL NEEDED AT BEDTIME Testosterone Cypionate 100MG/1ML Intramuscular Oil 03/08/2023 Unknown INTRAMUSCUL AR EVERY 2 WEEKS 1 unit(s) 176956 RxNorm GIVE 1 EACH INTRAMUSCUL AR EVERY 2 WEEKS Venlafaxine HCl 75MG Oral Tablet 03/08/2023 Unknown ORAL ONCE A DAY 75 MILLIGRA MS 756759 RxNorm TAKE 75 MILLIGRAMS ORAL ONCE A DAY Vitamin D(Ergocalciferol) AvPak 1.25MG Oral Capsule, Liquid Filled 03/08/2023 Unknown ORAL ONCE A WEEK 1.25 MILLIGRA MS [id number] RxNorm TAKE 1.25 MILLIGRAMS ORAL ONCE A WEEK HYDROcodone bitartrate-acetami nophen 7.5MG-325MG Oral Tablet 03/08/2023 Unknown BY MOUTH NEEDED EVERY 6 HOURS 1 TABLET 281703 RxNorm TAKE 1 TABLET BY MOUTH NEEDED [...] Open Umbilical Hernia repair with Mesh 03/03 [id number] 07/19/[address] [id number] Problems Problem Start Date Resolved Date Status Code Code System SYNCOPE active [id number] SNOMED-CT Allergies and Adverse Reactions Allergy Substance Reaction Severity Start Date Concern Status Co de Code System CEFUROXIME Moderate Active CEFIXIME Moderate Active CLARITHROMYCIN Moderate Active CEFPROZIL Moderate Active CEFTIN Active 358120 RxNorm SULFAMETHOXAZOLE/TRIME THOPRIM Active 29729 RxNorm Plan of Treatment MRI Lumbar WO Contrast (89109) 11/17/19 MRI Brain WO Contrast (86760) CT Abdomen/Pelvis W Contrast (96437) Open Umbilical Hernia Repair 03/08/2023 CT Upper Ext WO Contrast (06157) 2023 MRI UE Joint WO Contrast (63685) 2023 MRI Cervical WO Contrast (10752) 2023 Encounters Encounter Diagnosis Start Date Code Code Sys tem Other specific arthropathies , not elsewhere classified, left shoulder 04/25/2024 SNOMED-CT Personal Care Team Section Performer Name Performer Role Active Date Inactive Carter Herman PCP - Primary care physician 2021-11-07
--- OUTSIDE RECORDS SUMMARY | 2024-05-30 00:25 | XMS_ITS ---
Author Organization Unknown Address [id number] [place] [address] [phone] Phone Care Team Providers Care Clinical Nursing Director Name Role Phone KM Irwin Attending Unavailable [...] DIFF - Collect Date/T papa: 03/01/2023 10:07 [facility] [address] ID: [id number] [address] [place] [address], [id number] LOINC: 15308-5 Test Value Unit Reference Range Code Code System Flag WBC 8.0 10^3uL L=4.8 H=10.8 RBC 5.11 10^6uL L=4.60 H=6.20 HEMOGLOBIN 14.8 g/dL L=14.0 H=18.0 718-7 LOINC HEMATOCRIT 45.2 VOL% L=42.0 H=52.0 4544-3 LOINC MCV 88.5 fL L=80.0 H=94.0 MCH 29.0 pg L=27.0 H=32.0 MCHC 32.7 g/dL L=32.0 H=36.0 PLATELETS 352 10^3uL L=100 H=400 58907-9 LOINC RDW 13.6 % L=11.7 H=15.5 %GRAN 61.9 % L=40.0 H=70.0 05779-0 LOINC %LYMPH 24.3 % L=20.0 H=45.0 736-9 LOINC %MONO 7.1 % L=2.0 H=10.0 43996-2 LOINC %EOS 5.1 % L=0.0 H=6.0 713-8 LOINC %BASO 0.7 % L=0.0 H=3.0 706-2 LOINC #NEUT 5.0 10^3uL L=1.9 H=7.6 19591-8 LOINC #LYMPH 2.0 10^3uL L=0.9 H=4.9 60589-2 LOINC #MONO 0.6 10^3uL L=0.1 H=0.9 17980-6 LOINC #EOS 0.4 10^3uL L=0.0 H=0.6 712-0 LOINC #BASO 0.06 10^3uL L=0.00 H=0.10 05428-4 LOINC #IM GRANS 0.1 10^3uL L=0.0 H=7.0 05271-5 LOINC %IM GRANS 0.9 % L=0.0 H=5.0 13200-0 LOINC %NRB 0.0 L=0.0 H=0.2 01009-8 LOINC #NRB 0.000 L=0.000 H=0.012 58516-3 LOINC MANUAL DIFF NOT INDICATED RBC MORPH NOT INDICATED COMPREHENSIVE METABOLIC PANE L - Collect Date/Time: 03/01/2023 10:07 [facility] ID: [id number] [address] [place], [place], [phone] LOINC: 44858-4 Test Value Unit Reference Range Code Code [...] 2028-9 LOINC ANION GAP 13 L=10 H=20 64559-5 LOINC OSMOLALITY 291 mOs/kG L=280 H=296 12977-5 LOINC BUN/CREAT 21.3 3097-3 LOINC CALCIUM 9.6 mg/dL L=8.3 H=10.5 10516-4 LOINC AST 28 U/L L=15 H=46 1920-8 LOINC ALT 23 U/L L=9 H=72 1742-6 LOINC ALKALINE PHOS 62 U/L L=38 H=126 6768-6 LOINC TOTAL BILI 0.2 mg/dL L=0.2 H=1.3 1975-2 LOINC ALBUMIN 4.4 G/dL L=3.5 H=5.0 1751-7 LOINC TOTAL PROTEIN 7.6 g/L L=6.3 H=8.2 2885-2 LOINC A/G RATIO 1.4 14801-8 LOINC AGE 32 92107-3 LOINC eGFR NON-AFR 121 ml/min eGFR AFR AMER 146 ml/min CT ABD/PEL W/ CONTRAST - Com pleted: 03/01/2023 15:38 LOINC: 99808-7 EXAM DESCRIPTION: CT ABD/PEL W/ CONTRAST REASON [...] Jake Rosenthal M.D. AM: AM Report ID: [id number] Reading Location: [place] [address] Social History Type Status Start Date End Date Code Code Syst em Smoking History Never smoker (Never Smoked) 957646918 SNOMED CT Sex Male Medications Medication Start Date End Date Route Frequency Dose Code Code System Medication Instructions Home Meds Albuterol Sulfate HFA 0.09MG/1Actuation Inhalation Suspension 01/17/2022 Unknown INHALATION NEEDED EVERY 4 HOURS 2 unit(s) 0593324 RxNorm 2 EACH INHALATION NEEDED EVERY 4 HOURS Amitriptyline 25MG Oral Tablet 03/08/2023 Unknown ORAL NEEDED AT BEDTIME 25 MILLIGRA MS 960007 RxNorm TAKE 25 MILLIGRAMS ORAL NEEDED AT BEDTIME Testosterone Cypionate 100MG/1ML Intramuscular Oil 03/08/2023 Unknown INTRAMUSCUL AR EVERY 2 WEEKS 1 unit(s) 344610 RxNorm GIVE 1 EACH INTRAMUSCUL AR EVERY 2 WEEKS Venlafaxine HCl 75MG Oral Tablet 03/08/2023 Unknown ORAL ONCE A DAY 75 MILLIGRA MS 173556 RxNorm TAKE 75 MILLIGRAMS ORAL ONCE A DAY Vitamin D(Ergocalciferol) AvPak 1.25MG Oral Capsule, Liquid Filled 03/08/2023 Unknown ORAL ONCE A WEEK 1.25 MILLIGRA MS 4442376 RxNorm TAKE 1.25 MILLIGRAMS ORAL ONCE A WEEK HYDROcodone bitartrate-acetami nophen 7.5MG-325MG Oral Tablet 03/08/2023 Unknown BY MOUTH NEEDED EVERY 6 HOURS 1 TABLET 688934 RxNorm TAKE 1 TABLET BY MOUTH NEEDED [...] Open Umbilical Hernia repair with Mesh 03/03 [id number] 07/19/[address] [id number] Problems Problem Start Date Resolved Date Status Code Code System SYNCOPE active [id number] SNOMED-CT Allergies and Adverse Reactions Allergy Substance Reaction Severity Start Date Concern Status Co de Code System CEFUROXIME Moderate Active CEFIXIME Moderate Active CLARITHROMYCIN Moderate Active CEFPROZIL Moderate Active CEFTIN Active 102301 RxNorm SULFAMETHOXAZOLE/TRIME THOPRIM Active 92974 RxNorm Plan of Treatment MRI Lumbar WO Contrast (56033) 11/17/19 21 MRI Brain WO Contrast (75699) 2 CT Abdomen/Pelvis W Contrast (95564) Open Umbilical Hernia Repair 03/08/2023 CT Upper Ext WO Contrast (13889) 2023 MRI UE Joint WO Contrast (89407) 2023 MRI Cervical WO Contrast (30525) 2023 Encounters Encounter Diagnosis Start Date Code Code Sys tem Abdominal pain 03/01/2023 [id number] SNOMED-CT Personal Care Team Section Performer Name Performer Role Active Date Inactive Carter Herman PCP - Primary care physician 2021-11-07 Imaging Narrative Notes
--- OUTSIDE RECORDS SUMMARY | 2024-05-30 00:26 | XMS_ITS ---
Author Organization Unknown Address [address] [place] [address] [phone] Phone Care Team Providers Care Prisoner Classification Interviewer Name Role Phone DUY Fajardo Attending Unavailable [...] Cameron Olivas M.D. JA: GURVINDER Report ID: [id number] Reading Location: [place] [address] Social History Type Status Start Date End Date Code Code Syst em Smoking History Never smoker (Never Smoked) 171733934 SNOMED CT Sex Male Medications Medication Start Date End Date Route Frequency Dose Code Code System Medication Instructions Home Meds Albuterol Sulfate HFA 0.09MG/1Actuation Inhalation Suspension 01/17/2022 Unknown INHALATION NEEDED EVERY 4 HOURS 2 unit(s) 4256587 RxNorm 2 EACH INHALATION NEEDED EVERY 4 HOURS Amitriptyline 25MG Oral Tablet 03/08/2023 Unknown ORAL NEEDED AT BEDTIME 25 MILLIGRA MS 343410 RxNorm TAKE 25 MILLIGRAMS ORAL NEEDED AT BEDTIME Testosterone Cypionate 100MG/1ML Intramuscular Oil 03/08/2023 Unknown INTRAMUSCUL AR EVERY 2 WEEKS 1 unit(s) 711963 RxNorm GIVE 1 EACH INTRAMUSCUL AR EVERY 2 WEEKS Venlafaxine HCl 75MG Oral Tablet 03/08/2023 Unknown ORAL ONCE A DAY 75 MILLIGRA MS 471005 RxNorm TAKE 75 MILLIGRAMS ORAL ONCE A DAY Vitamin D(Ergocalciferol) AvPak 1.25MG Oral Capsule, Liquid Filled 03/08/2023 Unknown ORAL ONCE A WEEK 1.25 MILLIGRA MS 5357094 RxNorm TAKE 1.25 MILLIGRAMS ORAL ONCE A WEEK HYDROcodone bitartrate-acetami nophen 7.5MG-325MG Oral Tablet 03/08/2023 Unknown BY MOUTH NEEDED EVERY 6 HOURS 1 TABLET 626409 RxNorm TAKE 1 TABLET BY MOUTH NEEDED [...] Open Umbilical Hernia repair with Mesh 03/03 [id number] 07/19/[address] [id number] Problems Problem Start Date Resolved Date Status Code Code System SYNCOPE active 658331029 KaritKarmaOMED-CT Allergies and Adverse Reactions Allergy Substance Reaction Severity Start Date Concern Status Co de Code System CEFUROXIME Moderate Active CEFIXIME Moderate Active CLARITHROMYCIN Moderate Active CEFPROZIL Moderate Active CEFTIN Active 617599 RxNorm SULFAMETHOXAZOLE/TRIME THOPRIM Active 51028 RxNorm Plan of Treatment MRI Lumbar WO Contrast (29145) 11/17/19 MRI Brain WO Contrast (66621) 2 CT Abdomen/Pelvis W Contrast (90250) Open Umbilical Hernia Repair 03/08/2023 CT Upper Ext WO Contrast (18039) 2023 MRI UE Joint WO Contrast (52089) 2023 MRI Cervical WO Contrast (05922) 2023 Encounters Encounter Diagnosis Start Date Code Code Sys tem Other shoulder lesions, left shoulder 04/01/2024 SNOMED-CT Personal Care Team Section Performer Name Performer Role Active Date Inactive Carter Herman PCP - Primary care physician 2021-11-07 Imaging Narrative Notes
--- OUTSIDE RECORDS SUMMARY | 2024-05-30 00:26 | XMS_ITS ---
Author Organization Unknown Address [address] [place] [address] [phone] Phone Care Team Providers Care Food Critic Name Role Phone JAYE BRUNER Attending Unavailable [...] D - Colle ct Date/Time: 01/22/2024 15:01 [facility] [id number] [address] [place], [place], [phone] LOINC: Test Value Unit Reference Range Code Code System Flag VITAMIN D 47.6 ng/ml L=30.0 H=100 96065-9 LOINC HEMOGLOBIN A1C WITH eAG - Co llect Date/Time: 01/22/2024 15:01 [facility] [id number] [place], [place], [id number] LOINC: 4548-4 Test Value Unit Reference Range Code Code System Flag HGBA1C 6.9 % 4548-4 LOINC eAG 151.3 mg/dL 4548-4 LOINC COMPREHENSIVE METABOLIC PANE L - Collect Date/Time: 01/22/2024 15:01 [facility] [id number] [place], [place], [id number] LOINC: 79777-6 Test Value Unit Reference Range Code Code [...] 8-9 LOINC ANION GAP 17 L=10 H=20 79929-6 LOINC OSMOLALITY 298 mOs/kG L=280 H=296 36551-6 LOINC H BUN/CREAT 20.0 3097-3 LOINC CALCIUM 10.1 mg/dL L=8.3 H=10.5 87641-7 LOINC AST 31 U/L L=15 H=46 1920-8 LOINC ALT 33 U/L L=9 H=72 1742-6 LOINC ALKALINE PHOS 69 U/L L=38 H=126 6768-6 LOINC TOTAL BILI 0.5 mg/dL L=0.2 H=1.3 1975-2 LOINC ALBUMIN 4.4 G/dL L=3.5 H=5.0 1751-7 LOINC TOTAL PROTEIN 7.5 g/L L=6.3 H=8.2 2885-2 LOINC A/G RATIO 1.4 91190-8 LOINC AGE 33 14689-1 LOINC eGFR NON-AFR 105 ml/min eGFR AFR AMER 127 ml/min LIPID PANEL - Collect Date/T papa: 01/22/2024 15:01 [facility] [id number] [address] [place], [place], [phone] LOINC: 80474-6 Test Value Unit Reference Range Code Code System Flag FASTING NO CHOLESTEROL 169 mg/dL L=0 H=200 3-3 LOINC TRIGLYCERIDE 159 mg/dL L=0 H=150 2571-8 LOINC H HDL 48 mg/dL L=40 H=60 5-9 LOINC LDL 89 mg/dL 2088-1 LOINC Social History Type Status Start Date End Date Code Code Syst em Smoking History Never smoker (Never Smoked) 621977782 SNOMED CT Sex Male Medications Medication Start Date End Date Route Frequency Dose Code Code System Medication Instructions Home Meds Albuterol Sulfate HFA 0.09MG/1Actuation Inhalation Suspension 01/17/2022 Unknown INHALATION NEEDED EVERY 4 HOURS 2 unit(s) 3224199 RxNorm 2 EACH INHALATION NEEDED EVERY 4 HOURS Amitriptyline 25MG Oral Tablet 03/08/2023 Unknown ORAL NEEDED AT BEDTIME 25 MILLIGRA MS 478639 RxNorm TAKE 25 MILLIGRAMS ORAL NEEDED AT BEDTIME Testosterone Cypionate 100MG/1ML Intramuscular Oil 03/08/2023 Unknown INTRAMUSCUL AR EVERY 2 WEEKS 1 unit(s) 660485 RxNorm GIVE 1 EACH INTRAMUSCUL AR EVERY 2 WEEKS Venlafaxine HCl 75MG Oral Tablet 03/08/2023 Unknown ORAL ONCE A DAY 75 MILLIGRA MS 788081 RxNorm TAKE 75 MILLIGRAMS ORAL ONCE A DAY Vitamin D(Ergocalciferol) AvPak 1.25MG Oral Capsule, Liquid Filled 03/08/2023 Unknown ORAL ONCE A WEEK 1.25 MILLIGRA MS 6167722 RxNorm TAKE 1.25 MILLIGRAMS ORAL ONCE A WEEK HYDROcodone bitartrate-acetami nophen 7.5MG-325MG Oral Tablet 03/08/2023 Unknown BY MOUTH NEEDED EVERY 6 HOURS 1 TABLET 852561 RxNorm TAKE 1 TABLET BY MOUTH NEEDED [...] Open Umbilical Hernia repair with Mesh 03/03 [id number] 07/19/[address] [id number] Problems Problem Start Date Resolved Date Status Code Code System SYNCOPE active 286071398 SNOMED-CT Allergies and Adverse Reactions Allergy Substance Reaction Severity Start Date Concern Status Co de Code System CEFUROXIME Moderate Active CEFIXIME Moderate Active CLARITHROMYCIN Moderate Active CEFPROZIL Moderate Active CEFTIN Active 795771 RxNorm SULFAMETHOXAZOLE/TRIME THOPRIM Active 06687 RxNorm Plan of Treatment MRI Lumbar WO Contrast (59114) 11/17/19 MRI Brain WO Contrast (87936) CT Abdomen/Pelvis W Contrast (46280) Open Umbilical Hernia Repair 03/08/2023 CT Upper Ext WO Contrast (65809) 2023 MRI UE Joint WO Contrast (63726) 2023 MRI Cervical WO Contrast (21122) 2023 Personal Care Team Section Performer Name Performer Role Active Date Inactive Carter Herman PCP - Primary care physician 2021-11-07
--- OUTSIDE RECORDS SUMMARY | 2024-05-30 00:26 | XMS_ITS ---
Author Organization Unknown Address [address] [place] [address] [phone] Phone Care Team Providers Care Gravel Hauler Name Role Phone KAREN JULIEN Attending Unavailable [...] Vic Ortiz M.D. MF: NOEMÍ Report ID: [id number] Reading Location: [place] [address] Social History Type Status Start Date End Date Code Code Syst em Smoking History Never smoker (Never Smoked) 199769102 SNOMED CT Sex Male Medications Medication Start Date End Date Route Frequency Dose Code Code System Medication Instructions Home Meds Albuterol Sulfate HFA 0.09MG/1Actuation Inhalation Suspension 01/17/2022 Unknown INHALATION NEEDED EVERY 4 HOURS 2 unit(s) 1771538 RxNorm 2 EACH INHALATION NEEDED EVERY 4 HOURS Amitriptyline 25MG Oral Tablet 03/08/2023 Unknown ORAL NEEDED AT BEDTIME 25 MILLIGRA MS 195163 RxNorm TAKE 25 MILLIGRAMS ORAL NEEDED AT BEDTIME Testosterone Cypionate 100MG/1ML Intramuscular Oil 03/08/2023 Unknown INTRAMUSCUL AR EVERY 2 WEEKS 1 unit(s) 728113 RxNorm GIVE 1 EACH INTRAMUSCUL AR EVERY 2 WEEKS Venlafaxine HCl 75MG Oral Tablet 03/08/2023 Unknown ORAL ONCE A DAY 75 MILLIGRA MS 214589 RxNorm TAKE 75 MILLIGRAMS ORAL ONCE A DAY Vitamin D(Ergocalciferol) AvPak 1.25MG Oral Capsule, Liquid Filled 03/08/2023 Unknown ORAL ONCE A WEEK 1.25 MILLIGRA MS 2021691 RxNorm TAKE 1.25 MILLIGRAMS ORAL ONCE A WEEK HYDROcodone bitartrate-acetami nophen 7.5MG-325MG Oral Tablet 03/08/2023 Unknown BY MOUTH NEEDED EVERY 6 HOURS 1 TABLET 589714 RxNorm TAKE 1 TABLET BY MOUTH NEEDED [...] Open Umbilical Hernia repair with Mesh 03/03 [id number] 07/19/[address] [id number] Problems Problem Start Date Resolved Date Status Code Code System SYNCOPE active 233094585 SNOMED-CT Allergies and Adverse Reactions Allergy Substance Reaction Severity Start Date Concern Status Co de Code System CEFUROXIME Moderate Active CEFIXIME Moderate Active CLARITHROMYCIN Moderate Active CEFPROZIL Moderate Active CEFTIN Active 098639 RxNorm SULFAMETHOXAZOLE/TRIME THOPRIM Active 52937 RxNorm Plan of Treatment MRI Lumbar WO Contrast (18495) 11/17/19 MRI Brain WO Contrast (70951) CT Abdomen/Pelvis W Contrast (37212) Open Umbilical Hernia Repair 03/08/2023 CT Upper Ext WO Contrast (48251) 2023 MRI UE Joint WO Contrast (33217) 2023 MRI Cervical WO Contrast (70111) 2023 Encounters Encounter Diagnosis Start Date Code Code Sys tem Cervicalgia 02/29/2024 SNOMED-CT Personal Care Team Section Performer Name Performer Role Active Date Inactive Carter Herman PCP - Primary care physician 2021-11-07 Imaging Narrative Notes
--- OUTSIDE RECORDS SUMMARY | 2024-05-30 00:27 | XMS_ITS ---
Author Organization Unknown Address [address] [place] [address] [phone] Phone Care Team Providers Care Area Operations Director Name Role Phone CHARIS COURTNEY Attending Unavailable [...] Vic White M.D. MJ: TJ Report ID: [id number] Reading Location: [id number] Social History Type Status Start Date End Date Code Code Syst em Smoking History Never smoker (Never Smoked) 395050745 SNOMED CT Sex Male Medications Medication Start Date End Date Route Frequency Dose Code Code System Medication Instructions Home Meds Albuterol Sulfate HFA 0.09MG/1Actuation Inhalation Suspension 01/17/2022 Unknown INHALATION NEEDED EVERY 4 HOURS 2 unit(s) 2697131 RxNorm 2 EACH INHALATION NEEDED EVERY 4 HOURS Amitriptyline 25MG Oral Tablet 03/08/2023 Unknown ORAL NEEDED AT BEDTIME 25 MILLIGRA MS 733765 RxNorm TAKE 25 MILLIGRAMS ORAL NEEDED AT BEDTIME Testosterone Cypionate 100MG/1ML Intramuscular Oil 03/08/2023 Unknown INTRAMUSCUL AR EVERY 2 WEEKS 1 unit(s) 590551 RxNorm GIVE 1 EACH INTRAMUSCUL AR EVERY 2 WEEKS Venlafaxine HCl 75MG Oral Tablet 03/08/2023 Unknown ORAL ONCE A DAY 75 MILLIGRA MS 833138 RxNorm TAKE 75 MILLIGRAMS ORAL ONCE A DAY Vitamin D(Ergocalciferol) AvPak 1.25MG Oral Capsule, Liquid Filled 03/08/2023 Unknown ORAL ONCE A WEEK 1.25 MILLIGRA MS 4737315 RxNorm TAKE 1.25 MILLIGRAMS ORAL ONCE A WEEK HYDROcodone bitartrate-acetami nophen 7.5MG-325MG Oral Tablet 03/08/2023 Unknown BY MOUTH NEEDED EVERY 6 HOURS 1 TABLET 516261 RxNorm TAKE 1 TABLET BY MOUTH NEEDED [...] Open Umbilical Hernia repair with Mesh 03/03 [id number] 6 [id number] 07/19/[address] [id number] Problems Problem Start Date Resolved Date Status Code Code System SYNCOPE active 290086084 SNOMED-CT Allergies and Adverse Reactions Allergy Substance Reaction Severity Start Date Concern Status Co de Code System CEFUROXIME Moderate Active CEFIXIME Moderate Active CLARITHROMYCIN Moderate Active CEFPROZIL Moderate Active CEFTIN Active 804196 RxNorm SULFAMETHOXAZOLE/TRIME THOPRIM Active 99701 RxNorm Plan of Treatment MRI Lumbar WO Contrast (43751) 11/17/19 MRI Brain WO Contrast (00013) 2 CT Abdomen/Pelvis W Contrast (78825) Open Umbilical Hernia Repair 03/08/2023 CT Upper Ext WO Contrast (24707) 2023 MRI UE Joint WO Contrast (23618) 2023 MRI Cervical WO Contrast (10056) 2023 Encounters Encounter Diagnosis Start Date Code Code Sys tem Primary osteoarthritis, left shoulder 01/22/2024 SNOMED-CT Personal Care Team Section Performer Name Performer Role Active Date Inactive Carter Herman PCP - Primary care physician 2021-11-07 Imaging Narrative Notes
--- OUTSIDE RECORDS SUMMARY | 2024-05-30 00:27 | XMS_ITS ---
Author Organization Unknown Address [address] [place] [address] [phone] Phone Care Team Providers Care Retail Interior Designer Name Role Phone CASTRO JACOBSON Attending Unavailable [...] Burton Anderson M.D. KATERINA: KATERINA Report ID: [id number] Reading Location: [place] [address] Social History Type Status Start Date End Date Code Code Syst em Smoking History Never smoker (Never Smoked) 113743854 SNOMED CT Sex Male Medications Medication Start Date End Date Route Frequency Dose Code Code System Medication Instructions Home Meds Albuterol Sulfate HFA 0.09MG/1Actuation Inhalation Suspension 01/17/2022 Unknown INHALATION NEEDED EVERY 4 HOURS 2 unit(s) 1135917 RxNorm 2 EACH INHALATION NEEDED EVERY 4 HOURS Amitriptyline 25MG Oral Tablet 03/08/2023 Unknown ORAL NEEDED AT BEDTIME 25 MILLIGRA MS 441670 RxNorm TAKE 25 MILLIGRAMS ORAL NEEDED AT BEDTIME Testosterone Cypionate 100MG/1ML Intramuscular Oil 03/08/2023 Unknown INTRAMUSCUL AR EVERY 2 WEEKS 1 unit(s) 746213 RxNorm GIVE 1 EACH INTRAMUSCUL AR EVERY 2 WEEKS Venlafaxine HCl 75MG Oral Tablet 03/08/2023 Unknown ORAL ONCE A DAY 75 MILLIGRA MS 030748 RxNorm TAKE 75 MILLIGRAMS ORAL ONCE A DAY Vitamin D(Ergocalciferol) AvPak 1.25MG Oral Capsule, Liquid Filled 03/08/2023 Unknown ORAL ONCE A WEEK 1.25 MILLIGRA MS 9413946 RxNorm TAKE 1.25 MILLIGRAMS ORAL ONCE A WEEK HYDROcodone bitartrate-acetami nophen 7.5MG-325MG Oral Tablet 03/08/2023 Unknown BY MOUTH NEEDED EVERY 6 HOURS 1 TABLET 097675 RxNorm TAKE 1 TABLET BY MOUTH NEEDED [...] Open Umbilical Hernia repair with Mesh 03/03 [id number] 6 [id number] 07/19/[address] [id number] Problems Problem Start Date Resolved Date Status Code Code System SYNCOPE active 127547525 SNOMED-CT Allergies and Adverse Reactions Allergy Substance Reaction Severity Start Date Concern Status Co de Code System CEFUROXIME Moderate Active CEFIXIME Moderate Active CLARITHROMYCIN Moderate Active CEFPROZIL Moderate Active CEFTIN Active 913098 RxNorm SULFAMETHOXAZOLE/TRIME THOPRIM Active 22129 RxNorm Plan of Treatment MRI Lumbar WO Contrast (76027) 11/17/19 MRI Brain WO Contrast (48559) CT Abdomen/Pelvis W Contrast (12006) Open Umbilical Hernia Repair 03/08/2023 CT Upper Ext WO Contrast (10696) 2023 MRI UE Joint WO Contrast (23881) 2023 MRI Cervical WO Contrast (59670) 2023 Encounters Encounter Diagnosis Start Date Code Code Sys tem 01/29/2024 [id number] SNOMED-CT Personal Care Team Section Performer Name Performer Role Active Date Inactive Carter Herman PCP - Primary care physician 2021-11-07 Imaging Narrative Notes
--- OUTSIDE RECORDS SUMMARY | 2024-05-30 00:27 | XMS_ITS | Clinical Summary ---
Author Organization [facility] Address [address] [place] [address] Care Team Providers Care Neuroscience Director Na Name Role Phone Nicolás Cadet DO Primary Care Provider [phone] Allergies Active Allergy Reactions Criticality Noted Date [...] complete this topic Insurance [employer] Care Teams Neuroscience Director Na Relationship Specialty Start Date End Date Nicolás [place] [address] [place] [address] PCP - General FAMILY PRACTICE 01/21/24
--- OUTSIDE RECORDS SUMMARY | 2024-05-30 00:27 | XMS_ITS ---
Author Organization Unknown Address [address] [place] [address] [phone] Phone Care Team Providers Care Surgical First Assistant Name Role Phone SUSI BURRELL Attending Unavailable [...] RSV PCR - Collect Date/Time: 04/11/2024 13:[address] [facility] ID: [id number] [place] [address], [id number] LOINC: 34546-7 Test Value Unit Reference Range Code Code System Flag SARS CoV2 PCR POSITIVE A FLU A PCR NEGATIVE FLU B PCR NEGATIVE RSV PCR NEGATIVE SEND TO [facility]? YES Social History Type Status Start Date End Date Code Code Syst em Smoking History Never smoker (Never Smoked) 101317159 SNOMED CT Sex Male Medications Medication Start Date End Date Route Frequency Dose Code Code System Medication Instructions Home Meds Albuterol Sulfate HFA 0.09MG/1Actuation Inhalation Suspension 01/17/2022 Unknown INHALATION NEEDED EVERY 4 HOURS 2 unit(s) 2883134 RxNorm 2 EACH INHALATION NEEDED EVERY 4 HOURS Amitriptyline 25MG Oral Tablet 03/08/2023 Unknown ORAL NEEDED AT BEDTIME 25 MILLIGRA MS 776843 RxNorm TAKE 25 MILLIGRAMS ORAL NEEDED AT BEDTIME Testosterone Cypionate 100MG/1ML Intramuscular Oil 03/08/2023 Unknown INTRAMUSCUL AR EVERY 2 WEEKS 1 unit(s) 484125 RxNorm GIVE 1 EACH INTRAMUSCUL AR EVERY 2 WEEKS Venlafaxine HCl 75MG Oral Tablet 03/08/2023 Unknown ORAL ONCE A DAY 75 MILLIGRA MS 679232 RxNorm TAKE 75 MILLIGRAMS ORAL ONCE A DAY Vitamin D(Ergocalciferol) AvPak 1.25MG Oral Capsule, Liquid Filled 03/08/2023 Unknown ORAL ONCE A WEEK 1.25 MILLIGRA MS 3850515 RxNorm TAKE 1.25 MILLIGRAMS ORAL ONCE A WEEK HYDROcodone bitartrate-acetami nophen 7.5MG-325MG Oral Tablet 03/08/2023 Unknown BY MOUTH NEEDED EVERY 6 HOURS 1 TABLET 957872 RxNorm TAKE 1 TABLET BY MOUTH NEEDED [...] Open Umbilical Hernia repair with Mesh 03/03 [id number] 07/19/[address] [id number] Problems Problem Start Date Resolved Date Status Code Code System SYNCOPE active 864968974 SNOMED-CT Allergies and Adverse Reactions Allergy Substance Reaction Severity Start Date Concern Status Co de Code System CEFUROXIME Moderate Active CEFIXIME Moderate Active CLARITHROMYCIN Moderate Active CEFPROZIL Moderate Active CEFTIN Active 237568 RxNorm SULFAMETHOXAZOLE/TRIME THOPRIM Active 79417 RxNorm Plan of Treatment MRI Lumbar WO Contrast (87818) 11/17/19 MRI Brain WO Contrast (55057) CT Abdomen/Pelvis W Contrast (06329) Open Umbilical Hernia Repair 03/08/2023 CT Upper Ext WO Contrast (66181) 2023 MRI UE Joint WO Contrast (55034) 2023 MRI Cervical WO Contrast (85029) 2023 Encounters Encounter Diagnosis Start Date Code Code Sys tem COVID-19 04/11/2024 SNOMED-CT Personal Care Team Section Performer Name Performer Role Active Date Inactive Carter Herman PCP - Primary care physician 2021-11-07
--- OUTSIDE RECORDS SUMMARY | 2024-05-30 00:27 | XMS_ITS ---
Author Organization Unknown Address [address] [place] [address] [phone] Phone Care Team Providers Care Lockstitch Sleeve Maker Name Role Phone CASTRO JACOBSON Attending Unavailable [...] em Smoking History Never smoker (Never Smoked) [id number] SNOMED CT Sex Male Medications Medication Start Date End Date Route Frequency Dose Code Code System Medication Instructions Home Meds Albuterol Sulfate HFA 0.09MG/1Actuation Inhalation Suspension 01/17/2022 Unknown INHALATION NEEDED EVERY 4 HOURS 2 unit(s) 6174461 RxNorm 2 EACH INHALATION NEEDED EVERY 4 HOURS Amitriptyline 25MG Oral Tablet 03/08/2023 Unknown ORAL NEEDED AT BEDTIME 25 MILLIGRA MS 434583 RxNorm TAKE 25 MILLIGRAMS ORAL NEEDED AT BEDTIME Testosterone Cypionate 100MG/1ML Intramuscular Oil 03/08/2023 Unknown INTRAMUSCUL AR EVERY 2 WEEKS 1 unit(s) 409929 RxNorm GIVE 1 EACH INTRAMUSCUL AR EVERY 2 WEEKS Venlafaxine HCl 75MG Oral Tablet 03/08/2023 Unknown ORAL ONCE A DAY 75 MILLIGRA MS 272398 RxNorm TAKE 75 MILLIGRAMS ORAL ONCE A DAY Vitamin D(Ergocalciferol) AvPak 1.25MG Oral Capsule, Liquid Filled 03/08/2023 Unknown ORAL ONCE A WEEK 1.25 MILLIGRA MS 8562942 RxNorm TAKE 1.25 MILLIGRAMS ORAL ONCE A WEEK HYDROcodone bitartrate-acetami nophen 7.5MG-325MG Oral Tablet 03/08/2023 Unknown BY MOUTH NEEDED EVERY 6 HOURS 1 TABLET 943694 RxNorm TAKE 1 TABLET BY MOUTH NEEDED [...] Open Umbilical Hernia repair with Mesh 03/03 [id number] 07/19/[address] [id number] Problems Problem Start Date Resolved Date Status Code Code System SYNCOPE active [id number] SNOMED-CT Allergies and Adverse Reactions Allergy Substance Reaction Severity Start Date Concern Status Co de Code System CEFUROXIME Moderate Active CEFIXIME Moderate Active CLARITHROMYCIN Moderate Active CEFPROZIL Moderate Active CEFTIN Active 419076 RxNorm SULFAMETHOXAZOLE/TRIME THOPRIM Active 52859 RxNorm Plan of Treatment MRI Lumbar WO Contrast (86756) 11/17/19 MRI Brain WO Contrast (46951) CT Abdomen/Pelvis W Contrast (27220) Open Umbilical Hernia Repair 03/08/2023 CT Upper Ext WO Contrast (82656) 2023 MRI UE Joint WO Contrast (46006) 2023 MRI Cervical WO Contrast (37592) 2023 Encounters Encounter Diagnosis Start Date Code Code Sys tem Strain of muscle of upper limb 01/28/2024 [id number] SNOMED-CT Personal Care Team Section Performer Name Performer Role Active Date Inactive Carter Herman PCP - Primary care physician 2021-11-07
--- OUTSIDE RECORDS SUMMARY | 2024-05-30 00:27 | XMS_ITS ---
Author Organization Unknown Address [address] [place] [address] [phone] Phone Care Team Providers Care Ball Fringe Machine Operator Name Role Phone KAREN JULIEN Attending Unavailable [...] em Smoking History Never smoker (Never Smoked) [id number] SNOMED CT Sex Male Medications Medication Start Date End Date Route Frequency Dose Code Code System Medication Instructions Home Meds Albuterol Sulfate HFA 0.09MG/1Actuation Inhalation Suspension 01/17/2022 Unknown INHALATION NEEDED EVERY 4 HOURS 2 unit(s) 1777820 RxNorm 2 EACH INHALATION NEEDED EVERY 4 HOURS Amitriptyline 25MG Oral Tablet 03/08/2023 Unknown ORAL NEEDED AT BEDTIME 25 MILLIGRA MS 149315 RxNorm TAKE 25 MILLIGRAMS ORAL NEEDED AT BEDTIME Testosterone Cypionate 100MG/1ML Intramuscular Oil 03/08/2023 Unknown INTRAMUSCUL AR EVERY 2 WEEKS 1 unit(s) 088109 RxNorm GIVE 1 EACH INTRAMUSCUL AR EVERY 2 WEEKS Venlafaxine HCl 75MG Oral Tablet 03/08/2023 Unknown ORAL ONCE A DAY 75 MILLIGRA MS 208392 RxNorm TAKE 75 MILLIGRAMS ORAL ONCE A DAY Vitamin D(Ergocalciferol) AvPak 1.25MG Oral Capsule, Liquid Filled 03/08/2023 Unknown ORAL ONCE A WEEK 1.25 MILLIGRA MS 0949885 RxNorm TAKE 1.25 MILLIGRAMS ORAL ONCE A WEEK HYDROcodone bitartrate-acetami nophen 7.5MG-325MG Oral Tablet 03/08/2023 Unknown BY MOUTH NEEDED EVERY 6 HOURS 1 TABLET 808639 RxNorm TAKE 1 TABLET BY MOUTH NEEDED [...] Open Umbilical Hernia repair with Mesh 03/03 [id number] 07/19/[address] [id number] Problems Problem Start Date Resolved Date Status Code Code System SYNCOPE active 798787139 SNOMED-CT Allergies and Adverse Reactions Allergy Substance Reaction Severity Start Date Concern Status Co de Code System CEFUROXIME Moderate Active CEFIXIME Moderate Active CLARITHROMYCIN Moderate Active CEFPROZIL Moderate Active CEFTIN Active 444375 RxNorm SULFAMETHOXAZOLE/TRIME THOPRIM Active 49607 RxNorm Plan of Treatment MRI Lumbar WO Contrast (29466) 11/17/19 MRI Brain WO Contrast (58424) CT Abdomen/Pelvis W Contrast (17255) Open Umbilical Hernia Repair 03/08/2023 CT Upper Ext WO Contrast (88733) 2023 MRI UE Joint WO Contrast (17841) 2023 MRI Cervical WO Contrast (22923) 2023 Encounters Encounter Diagnosis Start Date Code Code Sys tem Cervicalgia 05/09/2024 SNOMED-CT Personal Care Team Section Performer Name Performer Role Active Date Inactive Da edward Cadet PCP - Primary care physician 2021-11-07
--- OUTSIDE RECORDS SUMMARY | 2024-05-30 00:28 | XMS_ITS ---
Author Organization Unknown Address [address] [place] [address] [phone] Phone Care Team Providers Care Sponsorship Coordinator Name Role Phone KAREN JULIEN Attending Unavailable [...] Tonya Mitchell M.D. LC: JONY Report ID: [id number] Reading Location: [id number] Social History Type Status Start Date End Date Code Code Syst em Smoking History Never smoker (Never Smoked) [id number] SNOMED CT Sex Male Medications Medication Start Date End Date Route Frequency Dose Code Code System Medication Instructions Home Meds Albuterol Sulfate HFA 0.09MG/1Actuation Inhalation Suspension 01/17/2022 Unknown INHALATION NEEDED EVERY 4 HOURS 2 unit(s) 3131454 RxNorm 2 EACH INHALATION NEEDED EVERY 4 HOURS Amitriptyline 25MG Oral Tablet 03/08/2023 Unknown ORAL NEEDED AT BEDTIME 25 MILLIGRA MS 133716 RxNorm TAKE 25 MILLIGRAMS ORAL NEEDED AT BEDTIME Testosterone Cypionate 100MG/1ML Intramuscular Oil 03/08/2023 Unknown INTRAMUSCUL AR EVERY 2 WEEKS 1 unit(s) 520278 RxNorm GIVE 1 EACH INTRAMUSCUL AR EVERY 2 WEEKS Venlafaxine HCl 75MG Oral Tablet 03/08/2023 Unknown ORAL ONCE A DAY 75 MILLIGRA MS 123953 RxNorm TAKE 75 MILLIGRAMS ORAL ONCE A DAY Vitamin D(Ergocalciferol) AvPak 1.25MG Oral Capsule, Liquid Filled 03/08/2023 Unknown ORAL ONCE A WEEK 1.25 MILLIGRA MS 7322790 RxNorm TAKE 1.25 MILLIGRAMS ORAL ONCE A WEEK HYDROcodone bitartrate-acetami nophen 7.5MG-325MG Oral Tablet 03/08/2023 Unknown BY MOUTH NEEDED EVERY 6 HOURS 1 TABLET 358356 RxNorm TAKE 1 TABLET BY MOUTH NEEDED [...] Open Umbilical Hernia repair with Mesh 03/03 [id number] 07/19/[address] [id number] Problems Problem Start Date Resolved Date Status Code Code System SYNCOPE active 847770566 ETF SecuritiesCT Allergies and Adverse Reactions Allergy Substance Reaction Severity Start Date Concern Status Co de Code System CEFUROXIME Moderate Active CEFIXIME Moderate Active CLARITHROMYCIN Moderate Active CEFPROZIL Moderate Active CEFTIN Active 142212 RxNorm SULFAMETHOXAZOLE/TRIME THOPRIM Active 49687 RxNorm Plan of Treatment MRI Lumbar WO Contrast (46087) 11/17/19 21 MRI Brain WO Contrast (29046) 2 CT Abdomen/Pelvis W Contrast (22327) Open Umbilical Hernia Repair 03/08/2023 CT Upper Ext WO Contrast (45703) 2023 MRI UE Joint WO Contrast (87562) 2023 MRI Cervical WO Contrast (86275) 2023 Encounters Encounter Diagnosis Start Date Code Code Sys tem Cervicalgia 03/13/2024 PFSweb-CT Personal Care Team Section Performer Name Performer Role Active Date Inactive Da te Nicoáls Lausen PCP - Primary care physician 2021-11-07 Imaging Narrative Notes
--- OUTSIDE RECORDS SUMMARY | 2024-05-30 00:28 | XMS_ITS ---
Author Organization Unknown Address [address] [place] [address] [phone] Phone Care Team Providers Care Commercial Administrator Name Role Phone KAREN JULIEN Attending Unavailable [...] em Smoking History Never smoker (Never Smoked) [id number] SNOMED CT Sex Male Medications Medication Start Date End Date Route Frequency Dose Code Code System Medication Instructions Home Meds Albuterol Sulfate HFA 0.09MG/1Actuation Inhalation Suspension 01/17/2022 Unknown INHALATION NEEDED EVERY 4 HOURS 2 unit(s) 0372381 RxNorm 2 EACH INHALATION NEEDED EVERY 4 HOURS Amitriptyline 25MG Oral Tablet 03/08/2023 Unknown ORAL NEEDED AT BEDTIME 25 MILLIGRA MS 420616 RxNorm TAKE 25 MILLIGRAMS ORAL NEEDED AT BEDTIME Testosterone Cypionate 100MG/1ML Intramuscular Oil 03/08/2023 Unknown INTRAMUSCUL AR EVERY 2 WEEKS 1 unit(s) 041917 RxNorm GIVE 1 EACH INTRAMUSCUL AR EVERY 2 WEEKS Venlafaxine HCl 75MG Oral Tablet 03/08/2023 Unknown ORAL ONCE A DAY 75 MILLIGRA MS 567917 RxNorm TAKE 75 MILLIGRAMS ORAL ONCE A DAY Vitamin D(Ergocalciferol) AvPak 1.25MG Oral Capsule, Liquid Filled 03/08/2023 Unknown ORAL ONCE A WEEK 1.25 MILLIGRA MS 4780627 RxNorm TAKE 1.25 MILLIGRAMS ORAL ONCE A WEEK HYDROcodone bitartrate-acetami nophen 7.5MG-325MG Oral Tablet 03/08/2023 Unknown BY MOUTH NEEDED EVERY 6 HOURS 1 TABLET 358946 RxNorm TAKE 1 TABLET BY MOUTH NEEDED [...] Open Umbilical Hernia repair with Mesh 03/03 [id number] 07/19/[address] [id number] Problems Problem Start Date Resolved Date Status Code Code System SYNCOPE active 436879514 SNOMED-CT Allergies and Adverse Reactions Allergy Substance Reaction Severity Start Date Concern Status Co de Code System CEFUROXIME Moderate Active CEFIXIME Moderate Active CLARITHROMYCIN Moderate Active CEFPROZIL Moderate Active CEFTIN Active 024023 RxNorm SULFAMETHOXAZOLE/TRIME THOPRIM Active 81237 RxNorm Plan of Treatment MRI Lumbar WO Contrast (27206) 11/17/19 MRI Brain WO Contrast (03485) 2 CT Abdomen/Pelvis W Contrast (56198) Open Umbilical Hernia Repair 03/08/2023 CT Upper Ext WO Contrast (90844) 2023 MRI UE Joint WO Contrast (67288) 2023 MRI Cervical WO Contrast (69510) 2023 Encounters Encounter Diagnosis Start Date Code Code Sys tem Cervicalgia 03/14/2024 SNOMED-CT Personal Care Team Section Performer Name Performer Role Active Date Inactive Carter Herman PCP - Primary care physician 2021-11-07
--- OUTSIDE RECORDS SUMMARY | 2024-05-30 00:28 | XMS_ITS | Clinical Summary ---
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
--- OUTSIDE RECORDS SUMMARY | 2024-05-30 00:28 | XMS_ITS ---
Author Organization Unknown Address [address] [place] [address] [phone] Phone Care Team Providers Care Fish Hatchery Laborer Name Role Phone MITCH Frost Attending Unavailable YUDY MORGAN CRNA Unavailable JAYE BRUENR Primary Unavailable Immunization Immunization Date Status Additional [...] em Smoking History Never smoker (Never Smoked) 295127680 SNOMED CT Sex Male Vital Signs Vital Sign Value Unit Mclean Value Mclean Unit Date/Time Recent/Initial? Code Code System Body Mass Index 43.80 kg/m2 03/08/2023 11:07 Most Recent 21254 -5 LOINC Body Mass Index 43.80 kg/m2 03/02/2023 12:55 Initial 58407 -5 LOINC Systolic Blood Pressure 131 mm[Hg] [...] O2 Saturation 98 % 2022 11:07 Initial 00346 -5 LOINC Pulse 60.0 /min 03/08/2023 11:07 Initial 8867- 4 LOINC Respiration 20 /min 03/08/20 11:07 Initial 9279- 1 LOINC Temperature 36.7 Lia 98.0 F 03/08/20 11:07 Initial 8310- 5 LOINC Weight 150.59 kg 332.00 lbs 03/08/2023 11:07 Most Recent 10994 -7 LOINC Weight 150.59 kg 332.00 lbs 03/02/2023 12:55 Initial 66268 -7 [facility] Medications Medication Start Date End Date Route Frequency Dose Code Code System Medication Instructions Home Meds Albuterol Sulfate HFA 0.09MG/1Actuation Inhalation Suspension 01/17/2022 Unknown INHALATION NEEDED EVERY 4 HOURS 2 unit(s) 1802324 RxNorm 2 EACH INHALATION NEEDED EVERY 4 HOURS Amitriptyline 25MG Oral Tablet 03/08/2023 Unknown ORAL NEEDED AT BEDTIME 25 MILLIGRA MS 001808 RxNorm TAKE 25 MILLIGRAMS ORAL NEEDED AT BEDTIME Testosterone Cypionate 100MG/1ML Intramuscular Oil 03/08/2023 Unknown INTRAMUSCUL AR EVERY 2 WEEKS 1 unit(s) 348015 RxNorm GIVE 1 EACH INTRAMUSCUL AR EVERY 2 WEEKS Venlafaxine HCl 75MG Oral Tablet 03/08/2023 Unknown ORAL ONCE A DAY 75 MILLIGRA MS 901097 RxNorm TAKE 75 MILLIGRAMS ORAL ONCE A DAY Vitamin D(Ergocalciferol) AvPak 1.25MG Oral Capsule, Liquid Filled 03/08/2023 Unknown ORAL ONCE A WEEK 1.25 MILLIGRA MS 2977302 RxNorm TAKE 1.25 MILLIGRAMS ORAL ONCE A WEEK HYDROcodone bitartrate-acetami nophen 7.5MG-325MG Oral Tablet 03/08/2023 Unknown BY MOUTH NEEDED EVERY 6 HOURS 1 TABLET 749809 RxNorm TAKE 1 TABLET BY MOUTH NEEDED [...] Code Code Syste m Hand surgery completed [id number] SNOMEDCT Anesthesia for intraperitone al procedures in upper abdomen including lapar 03/08/2023 completed 72251 CPT Repair of anterior abdominal hernia(s) (ie, epigastric, incisional, ventra 03/08/2023 completed 10840 CPT Implants Implanted [employer] Status Assigning Authority Procedure Date Lot Number Serial Number Manufacturing Date Expiration Date Distinct ID Code Brand Name Model Number Ventralex ST Hernia Patch Active Open Umbilical Hernia repair with Mesh 03/03 [id number] 07/19/[address] [id number] Problems Problem Start Date Resolved Date Status Code Code System SYNCOPE active 879461881 SNOMED-CT Allergies and Adverse Reactions Allergy Substance Reaction Severity Start Date Concern Status Co de Code System CEFUROXIME Moderate Active CEFIXIME Moderate Active CLARITHROMYCIN Moderate Active CEFPROZIL Moderate Active CEFTIN Active 359812 RxNorm SULFAMETHOXAZOLE/TRIME THOPRIM Active 58881 RxNorm Plan of Treatment MRI Lumbar WO Contrast (38534) 11/17/19 MRI Brain WO Contrast (28805) CT Abdomen/Pelvis W Contrast (23821) Open Umbilical Hernia Repair 03/08/2023 CT Upper Ext WO Contrast (65404) 2023 MRI UE Joint WO Contrast (88849) 2023 MRI Cervical WO Contrast (57102) 2023 Encounters Encounter Diagnosis Start Date Code Code Sys tem Umbilical hernia with obstruction, without gangrene SNOMED-CT Personal Care Team Section Performer Name Performer Role Active Date Inactive Carter Herman PCP - Primary care physician 2021-11-07
--- OUTSIDE RECORDS SUMMARY | 2024-05-30 00:28 | XMS_ITS ---
Author Organization Unknown Address [address] [place] [address] [phone] Phone Care Team Providers Care Body Shop Technician Name Role Phone CASTRO JACOBSON Attending Unavailable [...] em Smoking History Never smoker (Never Smoked) 955521900 SNOMED CT Sex Male Medications Medication Start Date End Date Route Frequency Dose Code Code System Medication Instructions Home Meds Albuterol Sulfate HFA 0.09MG/1Actuation Inhalation Suspension 01/17/2022 Unknown INHALATION NEEDED EVERY 4 HOURS 2 unit(s) 5225557 RxNorm 2 EACH INHALATION NEEDED EVERY 4 HOURS Amitriptyline 25MG Oral Tablet 03/08/2023 Unknown ORAL NEEDED AT BEDTIME 25 MILLIGRA MS 858662 RxNorm TAKE 25 MILLIGRAMS ORAL NEEDED AT BEDTIME Testosterone Cypionate 100MG/1ML Intramuscular Oil 03/08/2023 Unknown INTRAMUSCUL AR EVERY 2 WEEKS 1 unit(s) 716847 RxNorm GIVE 1 EACH INTRAMUSCUL AR EVERY 2 WEEKS Venlafaxine HCl 75MG Oral Tablet 03/08/2023 Unknown ORAL ONCE A DAY 75 MILLIGRA MS 862116 RxNorm TAKE 75 MILLIGRAMS ORAL ONCE A DAY Vitamin D(Ergocalciferol) AvPak 1.25MG Oral Capsule, Liquid Filled 03/08/2023 Unknown ORAL ONCE A WEEK 1.25 MILLIGRA MS 8411844 RxNorm TAKE 1.25 MILLIGRAMS ORAL ONCE A WEEK HYDROcodone bitartrate-acetami nophen 7.5MG-325MG Oral Tablet 03/08/2023 Unknown BY MOUTH NEEDED EVERY 6 HOURS 1 TABLET 082845 RxNorm TAKE 1 TABLET BY MOUTH NEEDED [...] Open Umbilical Hernia repair with Mesh 03/03 [id number] 07/19/[address] [id number] Problems Problem Start Date Resolved Date Status Code Code System SYNCOPE active 958325619 SNOMED-CT Allergies and Adverse Reactions Allergy Substance Reaction Severity Start Date Concern Status Co de Code System CEFUROXIME Moderate Active CEFIXIME Moderate Active CLARITHROMYCIN Moderate Active CEFPROZIL Moderate Active CEFTIN Active 747675 RxNorm SULFAMETHOXAZOLE/TRIME THOPRIM Active 10036 RxNorm Plan of Treatment MRI Lumbar WO Contrast (08799) 11/17/19 MRI Brain WO Contrast (60059) CT Abdomen/Pelvis W Contrast (98085) Open Umbilical Hernia Repair 03/08/2023 CT Upper Ext WO Contrast (25574) 2023 MRI UE Joint WO Contrast (75056) 2023 MRI Cervical WO Contrast (96123) 2023 Encounters Encounter Diagnosis Start Date Code Code Sys tem Strain of unspecified muscle , fascia and tendon at shoulder and upper arm level, unspecified arm, initial encounter 02/22/2024 SNOMED-CT Personal Care Team Section Performer Name Performer Role Active Date Inactive Carter Herman PCP - Primary care physician 2021-11-07
--- OUTSIDE RECORDS SUMMARY | 2024-05-30 00:28 | XMS_ITS ---
Author Organization Unknown Address [address] [place] [address] [phone] Phone Care Team Providers Care Automatic Head Sawyer Name Role Phone SCOTTY CANADA Attending Unavailable [...] RSV PCR - Collect Date/Time: 03/28/2023 12:34 [facility] ID: [id number] [address] [place] [address], [id number] LOINC: 79760-1 Test Value Unit Reference Range Code Code System Flag SARS CoV2 PCR NEGATIVE FLU A PCR NEGATIVE FLU B PCR NEGATIVE RSV PCR NEGATIVE SEND TO [facility]? YES A Social History Type Status Start Date End Date Code Code Syst em Smoking History Never smoker (Never Smoked) 061112651 SNOMED CT Sex Male Medications Medication Start Date End Date Route Frequency Dose Code Code System Medication Instructions Home Meds Albuterol Sulfate HFA 0.09MG/1Actuation Inhalation Suspension 01/17/2022 Unknown INHALATION NEEDED EVERY 4 HOURS 2 unit(s) 8004116 RxNorm 2 EACH INHALATION NEEDED EVERY 4 HOURS Amitriptyline 25MG Oral Tablet 03/08/2023 Unknown ORAL NEEDED AT BEDTIME 25 MILLIGRA MS 209310 RxNorm TAKE 25 MILLIGRAMS ORAL NEEDED AT BEDTIME Testosterone Cypionate 100MG/1ML Intramuscular Oil 03/08/2023 Unknown INTRAMUSCUL AR EVERY 2 WEEKS 1 unit(s) 289904 RxNorm GIVE 1 EACH INTRAMUSCUL AR EVERY 2 WEEKS Venlafaxine HCl 75MG Oral Tablet 03/08/2023 Unknown ORAL ONCE A DAY 75 MILLIGRA MS 285978 RxNorm TAKE 75 MILLIGRAMS ORAL ONCE A DAY Vitamin D(Ergocalciferol) AvPak 1.25MG Oral Capsule, Liquid Filled 03/08/2023 Unknown ORAL ONCE A WEEK 1.25 MILLIGRA MS 7652792 RxNorm TAKE 1.25 MILLIGRAMS ORAL ONCE A WEEK HYDROcodone bitartrate-acetami nophen 7.5MG-325MG Oral Tablet 03/08/2023 Unknown BY MOUTH NEEDED EVERY 6 HOURS 1 TABLET 964657 RxNorm TAKE 1 TABLET BY MOUTH NEEDED [...] Open Umbilical Hernia repair with Mesh 03/03 [id number] 6 [id number] 07/19/[address] [id number] Problems Problem Start Date Resolved Date Status Code Code System SYNCOPE active 971199734 SNOMED-CT Allergies and Adverse Reactions Allergy Substance Reaction Severity Start Date Concern Status Co de Code System CEFUROXIME Moderate Active CEFIXIME Moderate Active CLARITHROMYCIN Moderate Active CEFPROZIL Moderate Active CEFTIN Active 830629 RxNorm SULFAMETHOXAZOLE/TRIME THOPRIM Active 89386 RxNorm Plan of Treatment MRI Lumbar WO Contrast (28411) 11/17/19 MRI Brain WO Contrast (20795) CT Abdomen/Pelvis W Contrast (48400) Open Umbilical Hernia Repair 03/08/2023 CT Upper Ext WO Contrast (81206) 2023 MRI UE Joint WO Contrast (05829) 2023 MRI Cervical WO Contrast (31418) 2023 Personal Care Team Section Performer Name Performer Role Active Date Inactive Da edward Cadet PCP - Primary care physician 2021-11-07
--- OUTSIDE RECORDS SUMMARY | 2024-05-30 00:28 | XMS_ITS ---
Author Organization Unknown Address [address] [place] [address] [phone] Phone Care Team Providers Care Boilermaker Apprentice Name Role Phone SCOTTY CANADA Attending Unavailable [...] Ramona Dupree M.D. TW: TW Report ID: [id number] Reading Location: [id number] Social History Type Status Start Date End Date Code Code Syst em Smoking History Never smoker (Never Smoked) 701502310 SNOMED CT Sex Male Medications Medication Start Date End Date Route Frequency Dose Code Code System Medication Instructions Home Meds Albuterol Sulfate HFA 0.09MG/1Actuation Inhalation Suspension 01/17/2022 Unknown INHALATION NEEDED EVERY 4 HOURS 2 unit(s) 8832150 RxNorm 2 EACH INHALATION NEEDED EVERY 4 HOURS Amitriptyline 25MG Oral Tablet 03/08/2023 Unknown ORAL NEEDED AT BEDTIME 25 MILLIGRA MS 749240 RxNorm TAKE 25 MILLIGRAMS ORAL NEEDED AT BEDTIME Testosterone Cypionate 100MG/1ML Intramuscular Oil 03/08/2023 Unknown INTRAMUSCUL AR EVERY 2 WEEKS 1 unit(s) 058084 RxNorm GIVE 1 EACH INTRAMUSCUL AR EVERY 2 WEEKS Venlafaxine HCl 75MG Oral Tablet 03/08/2023 Unknown ORAL ONCE A DAY 75 MILLIGRA MS 986269 RxNorm TAKE 75 MILLIGRAMS ORAL ONCE A DAY Vitamin D(Ergocalciferol) AvPak 1.25MG Oral Capsule, Liquid Filled 03/08/2023 Unknown ORAL ONCE A WEEK 1.25 MILLIGRA MS 5635438 RxNorm TAKE 1.25 MILLIGRAMS ORAL ONCE A WEEK HYDROcodone bitartrate-acetami nophen 7.5MG-325MG Oral Tablet 03/08/2023 Unknown BY MOUTH NEEDED EVERY 6 HOURS 1 TABLET 811576 RxNorm TAKE 1 TABLET BY MOUTH NEEDED [...] Open Umbilical Hernia repair with Mesh 03/03 [id number] 6 [id number] 07/19/[address] [id number] Problems Problem Start Date Resolved Date Status Code Code System SYNCOPE active 681517966 SNOMED-CT Allergies and Adverse Reactions Allergy Substance Reaction Severity Start Date Concern Status Co de Code System CEFUROXIME Moderate Active CEFIXIME Moderate Active CLARITHROMYCIN Moderate Active CEFPROZIL Moderate Active CEFTIN Active 909491 RxNorm SULFAMETHOXAZOLE/TRIME THOPRIM Active 50537 RxNorm Plan of Treatment MRI Lumbar WO Contrast (93649) 11/17/19 MRI Brain WO Contrast (31503) CT Abdomen/Pelvis W Contrast (40812) Open Umbilical Hernia Repair 03/08/2023 CT Upper Ext WO Contrast (90758) 2023 MRI UE Joint WO Contrast (95745) 2023 MRI Cervical WO Contrast (46371) 2023 Encounters Encounter Diagnosis Start Date Code Code Sys tem Wheezing 02/22/2023 [id number] SNOMED-CT Personal Care Team Section Performer Name Performer Role Active Date Inactive Carter Herman PCP - Primary care physician 2021-11-07 Imaging Narrative Notes
--- OUTSIDE RECORDS SUMMARY | 2024-05-30 00:29 | XMS_ITS | Referral Summary ---
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
--- OUTSIDE RECORDS SUMMARY | 2024-05-30 00:29 | XMS_ITS ---
Author Organization Unknown Address [address] [place] [address] [phone] Phone Care Team Providers Care Upholstery Tech Name Role Phone MIRYAMBRUCE FRANC Attending Unavailable Immunization Immunization Date Status Additional [...] & TOTAL - Collect Date/Time: 02/04/2024 15:48 [facility] ID: [id number] [place] [address], [id number] LOINC: Test Value Unit Reference Range Code Code System Flag Testosterone 237 759-687 6149-8 LOINC L Free Testosterone(Direct) 9.0 8.7-25.1 2991-8 LOINC MICROALBUMIN - Collect Date/ Time: 02/04/2024 15:48 [facility] ID: [id number] [address] [place], [place], [phone] LOINC: 96962-4 Test Value Unit Reference Range Code Code System Flag MICROALBUMIN < 6.0 mg/L L=0.0 H=16.7 20788-9 LOINC UR CREATININE 57.50 mg/dL L=30.00 H=125 2161-8 LOINC MA/CR 10.4 mg/gCR Social History Type Status Start Date End Date Code Code Syst em Smoking History Never smoker (Never Smoked) 022955304 SNOMED CT Sex Male Medications Medication Start Date End Date Route Frequency Dose Code Code System Medication Instructions Home Meds Albuterol Sulfate HFA 0.09MG/1Actuation Inhalation Suspension 01/17/2022 Unknown INHALATION NEEDED EVERY 4 HOURS 2 unit(s) 6191099 RxNorm 2 EACH INHALATION NEEDED EVERY 4 HOURS Amitriptyline 25MG Oral Tablet 03/08/2023 Unknown ORAL NEEDED AT BEDTIME 25 MILLIGRA MS 086663 RxNorm TAKE 25 MILLIGRAMS ORAL NEEDED AT BEDTIME Testosterone Cypionate 100MG/1ML Intramuscular Oil 03/08/2023 Unknown INTRAMUSCUL AR EVERY 2 WEEKS 1 unit(s) 619230 RxNorm GIVE 1 EACH INTRAMUSCUL AR EVERY 2 WEEKS Venlafaxine HCl 75MG Oral Tablet 03/08/2023 Unknown ORAL ONCE A DAY 75 MILLIGRA MS 794524 RxNorm TAKE 75 MILLIGRAMS ORAL ONCE A DAY Vitamin D(Ergocalciferol) AvPak 1.25MG Oral Capsule, Liquid Filled 03/08/2023 Unknown ORAL ONCE A WEEK 1.25 MILLIGRA MS [id number] RxNorm TAKE 1.25 MILLIGRAMS ORAL ONCE A WEEK HYDROcodone bitartrate-acetami nophen 7.5MG-325MG Oral Tablet 03/08/2023 Unknown BY MOUTH NEEDED EVERY 6 HOURS 1 TABLET 742094 RxNorm TAKE 1 TABLET BY MOUTH NEEDED [...] Distinct ID Code Brand Name Model Number Flaquita ST Hernia Patch Active Open Umbilical Hernia repair with Mesh 03/03 [id number] 07/19/[address] [id number] Problems Problem Start Date Resolved Date Status Code Code System SYNCOPE active 323974314 SNOMED-CT Allergies and Adverse Reactions Allergy Substance Reaction Severity Start Date Concern Status Co de Code System CEFUROXIME Moderate Active CEFIXIME Moderate Active CLARITHROMYCIN Moderate Active CEFPROZIL Moderate Active CEFTIN Active 399192 RxNorm SULFAMETHOXAZOLE/TRIME THOPRIM Active 67838 RxNorm Plan of Treatment MRI Lumbar WO Contrast (95972) 11/17/19 MRI Brain WO Contrast (38984) CT Abdomen/Pelvis W Contrast (55942) Open Umbilical Hernia Repair 03/08/2023 CT Upper Ext WO Contrast (41857) 2023 MRI UE Joint WO Contrast (75107) 2023 MRI Cervical WO Contrast (57308) 2023 Personal Care Team Section Performer Name Performer Role Active Date Inactive Carter Herman PCP - Primary care physician 2021-11-07
--- OUTSIDE RECORDS SUMMARY | 2024-05-30 00:29 | XMS_ITS ---
Author Organization Unknown Address [address] [place] [phone] Phone Care Team Providers Care Mining Teacher Name Role Phone DISHA Pedraza Attending Unavailable [...] SARS PCR - Collect Date/Time: 12/17/2023 12:52 [facility] ID: [id number] [place] [address], [phone] LOINC: 37440-9 Test Value Unit Reference Range Code Code System Flag ADENOVIRUS NOT DETECTED NORMAL: NOT DETECTED 5778-6 LOINC CORONAVIRUS 229E NOT DETECTED NORMAL: NOT DETECTED 5778-6 LOINC CORONAVIRUS HKU1 NOT DETECTED NORMAL: NOT DETECTED 5778-6 LOINC CORONAVIRUS NL63 NOT DETECTED NORMAL: NOT DETECTED 5778-6 LOINC CORONAVIRUS OC43 NOT DETECTED NORMAL: NOT DETECTED 5778-6 LOINC CORONAVIRUS COVID-19 NOT DETECTED NORMAL: NOT DETECTED 58372-4 LOINC H METAPNEUMOVIRUS NOT DETECTED NORMAL: NO [...] NORMAL: NOT DETECTED 5778-6 LOINC SEND TO [facility]? NO Social History Type Status Start Date End Date Code Code Syst em Smoking History Never smoker (Never Smoked) 578003334 SNOMED CT Sex Male Medications Medication Start Date End Date Route Frequency Dose Code Code System Medication Instructions Home Meds Albuterol Sulfate HFA 0.09MG/1Actuation Inhalation Suspension 01/17/2022 Unknown INHALATION NEEDED EVERY 4 HOURS 2 unit(s) 5401384 RxNorm 2 EACH INHALATION NEEDED EVERY 4 HOURS Amitriptyline 25MG Oral Tablet 03/08/2023 Unknown ORAL NEEDED AT BEDTIME 25 MILLIGRA MS 194591 RxNorm TAKE 25 MILLIGRAMS ORAL NEEDED AT BEDTIME Testosterone Cypionate 100MG/1ML Intramuscular Oil 03/08/2023 Unknown INTRAMUSCUL AR EVERY 2 WEEKS 1 unit(s) 157188 RxNorm GIVE 1 EACH INTRAMUSCUL AR EVERY 2 WEEKS Venlafaxine HCl 75MG Oral Tablet 03/08/2023 Unknown ORAL ONCE A DAY 75 MILLIGRA MS 229983 RxNorm TAKE 75 MILLIGRAMS ORAL ONCE A DAY Vitamin D(Ergocalciferol) AvPak 1.25MG Oral Capsule, Liquid Filled 03/08/2023 Unknown ORAL ONCE A WEEK 1.25 MILLIGRA MS 8365099 RxNorm TAKE 1.25 MILLIGRAMS ORAL ONCE A WEEK HYDROcodone bitartrate-acetami nophen 7.5MG-325MG Oral Tablet 03/08/2023 Unknown BY MOUTH NEEDED EVERY 6 HOURS 1 TABLET 368778 RxNorm TAKE 1 TABLET BY MOUTH NEEDED [...] Open Umbilical Hernia repair with Mesh 03/03 [id number] 07/19/[address] [id number] Problems Problem Start Date Resolved Date Status Code Code System SYNCOPE active 102096138 SNOMED-CT Allergies and Adverse Reactions Allergy Substance Reaction Severity Start Date Concern Status Co de Code System CEFUROXIME Moderate Active CEFIXIME Moderate Active CLARITHROMYCIN Moderate Active CEFPROZIL Moderate Active CEFTIN Active 435493 RxNorm SULFAMETHOXAZOLE/TRIME THOPRIM Active 48194 RxNorm Plan of Treatment MRI Lumbar WO Contrast (51712) 11/17/19 21 MRI Brain WO Contrast (00860) 2 CT Abdomen/Pelvis W Contrast (75787) Open Umbilical Hernia Repair 03/08/2023 CT Upper Ext WO Contrast (46234) 2023 MRI UE Joint WO Contrast (15511) 2023 MRI Cervical WO Contrast (57138) 2023 Personal Care Team Section Performer Name Performer Role Active Date Inactive Carter Herman PCP - Primary care physician 2021-11-07
--- OUTSIDE RECORDS SUMMARY | 2024-05-30 00:29 | XMS_ITS ---
Author Organization Unknown Address [address] [place] [address] [phone] Phone Care Team Providers Care Lumber Sticker Name Role Phone JAYE BRUNER Attending Unavailable [...] em Smoking History Never smoker (Never Smoked) [id number] SNOMED CT Sex Male Medications Medication Start Date End Date Route Frequency Dose Code Code System Medication Instructions Home Meds Albuterol Sulfate HFA 0.09MG/1Actuation Inhalation Suspension 01/17/2022 Unknown INHALATION NEEDED EVERY 4 HOURS 2 unit(s) 8825037 RxNorm 2 EACH INHALATION NEEDED EVERY 4 HOURS Amitriptyline 25MG Oral Tablet 03/08/2023 Unknown ORAL NEEDED AT BEDTIME 25 MILLIGRA MS 331792 RxNorm TAKE 25 MILLIGRAMS ORAL NEEDED AT BEDTIME Testosterone Cypionate 100MG/1ML Intramuscular Oil 03/08/2023 Unknown INTRAMUSCUL AR EVERY 2 WEEKS 1 unit(s) 656716 RxNorm GIVE 1 EACH INTRAMUSCUL AR EVERY 2 WEEKS Venlafaxine HCl 75MG Oral Tablet 03/08/2023 Unknown ORAL ONCE A DAY 75 MILLIGRA MS 844988 RxNorm TAKE 75 MILLIGRAMS ORAL ONCE A DAY Vitamin D(Ergocalciferol) AvPak 1.25MG Oral Capsule, Liquid Filled 03/08/2023 Unknown ORAL ONCE A WEEK 1.25 MILLIGRA MS 6058733 RxNorm TAKE 1.25 MILLIGRAMS ORAL ONCE A WEEK HYDROcodone bitartrate-acetami nophen 7.5MG-325MG Oral Tablet 03/08/2023 Unknown BY MOUTH NEEDED EVERY 6 HOURS 1 TABLET 042245 RxNorm TAKE 1 TABLET BY MOUTH NEEDED [...] Open Umbilical Hernia repair with Mesh 03/03 [id number] 07/19/[address] [id number] Problems Problem Start Date Resolved Date Status Code Code System SYNCOPE active 389985313 SNOMED-CT Allergies and Adverse Reactions Allergy Substance Reaction Severity Start Date Concern Status Co de Code System CEFUROXIME Moderate Active CEFIXIME Moderate Active CLARITHROMYCIN Moderate Active CEFPROZIL Moderate Active CEFTIN Active 786251 RxNorm SULFAMETHOXAZOLE/TRIME THOPRIM Active 36484 RxNorm Plan of Treatment MRI Lumbar WO Contrast (56225) 11/17/19 21 MRI Brain WO Contrast (10987) 2 CT Abdomen/Pelvis W Contrast (21806) Open Umbilical Hernia Repair 03/08/2023 CT Upper Ext WO Contrast (76176) 2023 MRI UE Joint WO Contrast (78940) 2023 MRI Cervical WO Contrast (97115) 2023 Encounters Encounter Diagnosis Start Date Code Code Sys tem Pain in left shoulder 05/08/2024 SNOMED -CT Personal Care Team Section Performer Name Performer Role Active Date Inactive Da edward Cadet PCP - Primary care physician 2021-11-07
[2024-05-30] MEDS: KETOROLAC 15 MG/ML VIAL (*BKC) IV PUSH (01:37)
[2024-05-30] MEDS: SODIUM CHLORIDE 0.9% IV 1,000 ML 999 ML IV CONT (01:37)
[2024-05-30] MEDS: PROCHLORPERAZINE EDISYLATE 10 MG/2 ML VIAL IV PUSH (01:38)
[2024-05-30 01:46] LABS: Glucose Point of Care 132 mg/dl (65-105)
[2024-05-30 02:10] VITALS: BP 140/88; PULSE 96; RESP 18; O2SAT 99
[2024-05-30 02:11] VITALS: BP 140/88; PULSE 96; RESP 18; O2SAT 99
== END 2024-05-30 02:13 | disposition home or self-care (01) ==
PROVIDERS: Physician Assistant; Emergency Provider Physician Assistant; PCP Registered Nurse
DX: R73.9 Hyperglycemia, unspecified (principal); R51.9 Headache, unspecified; R07.9 Chest pain, unspecified; Z20.822 Contact with and (suspected) exposure to COVID-19; R73.03 Prediabetes; J45.909 Unspecified asthma, uncomplicated; F41.9 Anxiety disorder, unspecified; Z86.16 Personal history of COVID-19; Z87.891 Personal history of nicotine dependence; Z79.899 Other long term (current) drug therapy
CPT/HCPCS: 36415; 71045; 80053; 81003; 82010; 82948; 83036; 83605; 83735; 85025; 85610; 85730; 87637; 93005; 96361; 96374; 96375; 99284; A9270; J0780; J1885; J7030